=== PATIENT | female | born 1970 | race Caucasian/White ===

== ENCOUNTER 2016-11-17 13:47 | Emergency (ER) | payer MEDICARE, MEDICAID ==
[2016-11-17] MEDS ORDERED: HYDROcod/ACETAM 5/325 MG TABLET PO STA ×2 (15:21→15:51)
[2016-11-17] MEDS ORDERED: CEPHALEXIN 250 MG CAPSULE PO STA (15:22)
[2016-11-17] MEDS ORDERED: HYDROcod/ACETAM 5/325 MG TABLET ONE (15:24)
[2016-11-17] MEDS ORDERED: CIPROFLOXACIN 250 MG TABLET PO ONE (15:24)
[2016-11-17] MEDS ORDERED: CEPHALEXIN 250 MG CAPSULE PO ONE (15:25)
[2016-11-17] MEDS ORDERED: ONDANSETRON 4 MG/2 ML VIAL IM STA (15:51)
[2016-11-17] MEDS ORDERED: ceFAZolin 1 GM VIAL IM STA (15:51)
[2016-11-17] MEDS ORDERED: ONDANSETRON 4 MG/2 ML VIAL ONE (16:03)
[2016-11-17] MEDS ORDERED: WATER FOR INJECTION,STERILE 10 ML ONE (16:03)
[2016-11-17] MEDS ORDERED: ceFAZolin 1 GM VIAL ONE (16:03)
[2016-11-17] MEDS ORDERED: traMADol 50 MG TABLET PO STA (16:57)
[2016-11-17] MEDS ORDERED: traMADol 50 MG TABLET PO ONE (16:59)
== END 2016-11-17 17:35 | disposition home or self-care (01) ==
DX: M79.641 Pain in right hand (principal); M79.89 Other specified soft tissue disorders; S60.812A Abrasion of left wrist, initial encounter; X58.XXXA Exposure to other specified factors, initial encounter; L03.114 Cellulitis of left upper limb; R03.0 Elevated blood-pressure reading, without diagnosis of hypertension
CPT/HCPCS: 29125; 73130; 96372; 99283; A9270

== ENCOUNTER 2016-11-24 18:23 | Emergency (ER) | payer MEDICARE, MEDICAID ==
[2016-11-24] MEDS ORDERED: SODIUM CHLORIDE 0.9% 1,000 ML IV ONE ×2 (19:24→19:31)
[2016-11-24] MEDS ORDERED: ONDANSETRON ODT 4 MG TABLET TL STA (19:24)
[2016-11-24] MEDS ORDERED: IPRATROPIUM/ALBUTEROL 3 ML NEB INH STA (19:24)
[2016-11-24] MEDS ORDERED: HYDROmorphone 1 MG/ML SYRINGE IVP STA (19:24)
[2016-11-24] MEDS ORDERED: methylPREDNISolone SUCCINATE 125 MG/2 ML VIAL IVP STA ×2 (19:26→20:30)
[2016-11-24] MEDS ORDERED: IPRATROPIUM/ALBUTEROL 3 ML NEB INH ONE (19:28)
[2016-11-24] MEDS ORDERED: HYDROmorphone 1 MG/ML SYRINGE ONE (19:30)
[2016-11-24] MEDS ORDERED: methylPREDNISolone SUCCINATE 125 MG/2 ML VIAL IVP ONE (19:31)
[2016-11-24] MEDS ORDERED: ONDANSETRON 4 MG/2 ML VIAL ONE (19:31)
[2016-11-24] MEDS ORDERED: HYDROmorphone 1 MG/ML SYRINGE IM STA (20:29)
[2016-11-24] MEDS ORDERED: METOCLOPRAMIDE 10 MG/2 ML VIAL IVP STA (20:29)
[2016-11-24] MEDS ORDERED: ONDANSETRON 4 MG/2 ML VIAL IM STA (20:30)
[2016-11-24] MEDS ORDERED: METOCLOPRAMIDE 10 MG/2 ML VIAL IVP ONE (20:35)
[2016-11-24] MEDS ORDERED: IOPAMIDOL-300 100 ML VIAL IVP ONE (21:24)
[2016-11-24] MEDS ORDERED: ALBUTEROL 8 GM INHALER INH STA (22:22)
[2016-11-24] MEDS ORDERED: ALBUTEROL 8 GM INHALER INH ONE (22:27)
== END 2016-11-24 22:48 | disposition home or self-care (01) ==
DX: J06.9 Acute upper respiratory infection, unspecified (principal); B97.89 Other viral agents as the cause of diseases classified elsewhere; R06.2 Wheezing; R10.12 Left upper quadrant pain; R11.2 Nausea with vomiting, unspecified; Z90.49 Acquired absence of other specified parts of digestive tract; F17.200 Nicotine dependence, unspecified, uncomplicated
CPT/HCPCS: 36415; 71020; 74177; 80053; 81003; 81025; 83690; 85025; 87275; 87276; 94640; 94664; 96372; 96374; 96375; 99283; 99284; A9270; J1170; J7620; Q9967

== ENCOUNTER 2016-12-04 | Emergency (ER) | payer MEDICARE, MEDICAID | END 2016-12-04 03:55 | disposition home or self-care (01) ==

== ENCOUNTER 2016-12-04 | Outpatient (CLI) | payer MEDICARE, MEDICAID | END 2016-12-04 01:15 | disposition critical access hospital (66) | DX: R40.20 Unspecified coma (principal) | CPT/HCPCS: A0425; A0427 ==

== ENCOUNTER 2017-03-12 20:03 | Outpatient (CLI) | payer MEDICARE, MEDICAID | END 2017-03-12 20:04 | disposition home or self-care (01) | DX: R10.2 Pelvic and perineal pain (principal) ==

== ENCOUNTER 2017-03-13 14:19 | Outpatient (CLI) | payer MEDICAID, MEDICARE | END 2017-03-13 14:20 | disposition home or self-care (01) | DX: Z01.812 Encounter for preprocedural laboratory examination (principal); M19.132 Post-traumatic osteoarthritis, left wrist ==

== ENCOUNTER 2017-03-17 12:36 | Observation (INO) | payer MEDICARE, MEDICAID ==
[2017-03-17] MEDS ORDERED: ceFAZolin 2 GM/50 ML 50 ML IV ONE (12:44)
[2017-03-17 13:11] LABS: HCG UR QUAL NEGATIVE
[2017-03-17] MEDS ORDERED: LACTATED RINGERS 1,000 ML IV ONE ×2 (15:10→17:32)
[2017-03-17] MEDS ORDERED: BUPIVACAINE 0.25% PF 30 ML VIAL SUBQ ONE ×2 (16:27)
[2017-03-17] MEDS ORDERED: DEXAMETHASONE 4 MG/ML VIAL IVP ONE (16:40)
[2017-03-17] MEDS ORDERED: fentaNYL 100 MCG/2 ML VIAL IVP ONE (16:40)
[2017-03-17] MEDS ORDERED: ONDANSETRON 4 MG/2 ML VIAL IVP ONE (16:40)
[2017-03-17] MEDS ORDERED: MIDAZOLAM 2 MG/2 ML VIAL IVP ONE (16:40)
[2017-03-17] MEDS ORDERED: ROPIVACAINE 0.5% PF 20 ML AMPULE EP ONE (16:40)
[2017-03-17] MEDS ORDERED: PROPOFOL 200 MG/20 ML VIAL IVP ONE (16:40)
[2017-03-17] MEDS ORDERED: EPINEPHrine 1 MG/ML VIAL IM ONE (16:40)
--- NOTE | 2017-03-17 18:15 | XRAY Preliminary Report ---
Exam: XR Wrist 2 View LT Impression: Status post radiocarpal dorsal fusion. [facility] SITE ID: [id number]
--- NOTE | 2017-03-17 18:18 | XRAY Report ---
EXAM: LEFT WRIST RADIOGRAPHY EXAM DATE: 03/17/2017 03:24 PM. CLINICAL HISTORY: LEFT WRIST FUSION. COMPARISON: None. TECHNIQUE: 4 views. FINDINGS: Fluoroscopic assistance provided for 11 seconds. 4 spot films of the left wrist obtained demonstratin g a dorsal fusion plate bridging the radius, carpus to third metacarpal. Hardware appears firmly anch ored and intact. Advanced degenerative changes involving the carpus noted. Impression: Status post radiocarpal dorsal fusion. [facility] Referring Provider Line: [phone] SITE ID: [id number]
[2017-03-17] MEDS ORDERED: ACETAMINOPHEN 325 MG TABLET PO PRN (18:20)
[2017-03-17] MEDS ORDERED: diphenhydrAMINE 25 MG CAPSULE PO PRN (18:20)
[2017-03-17] MEDS ORDERED: SODIUM CHLORIDE FLUSH 0.9% 10 ML SYRINGE IVP PRN (18:20)
[2017-03-17] MEDS ORDERED: ACETAMINOPHEN 1,000 MG/100 ML 100 ML IV PRN (18:20)
[2017-03-17] MEDS ORDERED: PROCHLORPERAZINE 10 MG/2 ML VIAL IVP PRN (18:20)
[2017-03-17] MEDS ORDERED: ONDANSETRON 4 MG/2 ML VIAL IVP PRN (18:20)
[2017-03-17] MEDS ORDERED: hydrOXYzine PAMOATE 25 MG CAPSULE PO PRN (18:26)
--- NOTE | 2017-03-17 18:43 | OPERATIVE REPORT ---
Surgery Post-Op - General Procedure Date: 03/17/17 Pre-Op Diagnosis: 1. Posttraumatic arthritis Left Wrist. 2. Acquired limb deformity Left Wrist. Operative Procedure: Left Wrist fusion with allograft bone grafting. Post-Op Diagnosis: Same. - Procedure Note Anesthesia Technique: Primary Surgeon: Ronn Santos MD Pathology: Same. Estimated Blood Loss (in cc): 0 Drain/Tube Type: positive: Other (None.) Complications: None. - Other Other Information/Narrative: 1. Fluids: 1000 LR. 2. Tourniquet: 90 minutes to Left arm at 250 mm Hg without complication. 3. Condition: Stable. 4. Disposition: Patient to be admitted overnight for Observation secondary to concerns about the vascular supply to her left arm as a result of her Raynaud's.
[2017-03-17] MEDS: clonazePAM 0.5 MG TABLET PO SCH (20:23)
[2017-03-17] MEDS: traMADol 50 MG TABLET PO PRN (20:23)
[2017-03-17] MEDS: ALPRAZolam 0.25 MG TABLET PO PRN (20:23)
[2017-03-17] MEDS: busPIRone 5 MG TABLET PO SCH (20:24)
[2017-03-17] MEDS: GABAPENTIN 300 MG CAPSULE PO SCH (21:14)
--- NOTE | 2017-03-17 22:52 | XRAY Preliminary Report ---
Exam: XR Chest 1 View IMPRESSION: 1. Right IJ line tip is not well seen. The tip extends at least to the right atrium. 2. Normal lung v olumes and heart size. 3. No evidence of focal infiltrate. 4. No pneumothorax. [facility] SITE ID: [id number]
--- NOTE | 2017-03-17 22:54 | XRAY Report ---
EXAM: CHEST RADIOGRAPHY EXAM DATE: 03/17/2017 06:36 PM. CLINICAL HISTORY: Post op central line. COMPARISON: 11/24/2016. TECHNIQUE: 1 view. FINDINGS: Lungs/Pleura: No focal opacities evident. No pleural effusion. No pneumothorax. Mediastinum: Within exam limitations, cardiomediastinal contour is normal. Other: Right IJ line tip is not well seen. It extends at least to the right atrium. IMPRESSION: 1. Right IJ line tip is not well seen. The tip extends at least to the right atrium. 2. Normal lung v olumes and heart size. 3. No evidence of focal infiltrate. 4. No pneumothorax. [facility] Referring Provider Line: [phone] SITE ID: [id number]
[2017-03-17] MEDS: D5.45NS W/20 MEQ KCL 1,000 ML IV SCH (23:25)
[2017-03-17] MEDS: ceFAZolin 2 GM/50 ML 50 ML IV SCH (23:27)
[2017-03-17] MEDS: SODIUM CHLORIDE FLUSH 0.9% 10 ML SYRINGE IVP SCH (23:32)
[2017-03-17] MEDS: HYDROmorphone 1 MG/ML SYRINGE IVP PRN (23:57)
[2017-03-18] MEDS: HYDROmorphone 1 MG/ML SYRINGE IVP PRN ×3 (02:08→08:22)
[2017-03-18] MEDS: ALPRAZolam 0.25 MG TABLET PO PRN (03:44)
[2017-03-18] MEDS: SODIUM CHLORIDE FLUSH 0.9% 10 ML SYRINGE IVP SCH (05:26)
[2017-03-18] MEDS: GABAPENTIN 300 MG CAPSULE PO SCH (05:33)
[2017-03-18] MEDS: ceFAZolin 2 GM/50 ML 50 ML IV SCH (05:33)
[2017-03-18] MEDS ORDERED: ASPIRIN 325 MG TABLET PO SCH (08:00)
[2017-03-18] MEDS: busPIRone 5 MG TABLET PO SCH (08:21)
[2017-03-18] MEDS: traMADol 50 MG TABLET PO PRN (08:22)
[2017-03-18] MEDS: clonazePAM 0.5 MG TABLET PO SCH (08:22)
--- NOTE | 2017-03-18 08:54 | Discharge Plan ---
Discharge Plan Disposition: Home, Self Care Condition: Fair Prescriptions: Oxycodone HCl/Acetaminophen [Oxycodone-Acetaminophen 5-325] 1 each PO Q4HR #14 tablet traMADol [Ultram] 50 mg PO Q4HR PRN #60 tablet PRN Reason: Pain Diet: Regular Activity Restrictions: No lifting > 1 lb w/ Left Shower Restrictions: Yes (Keep dressing clean and dry.) Driving Restrictions: Yes Weight Bearing: Partial Weight No Smoking: If you smoke, Please STOP! Call for help. Follow-up with: Judith Celaya FNP [Primary Care Provider] - Ronn Santos MD [Provider Admit Priv/Credential] -
[2017-03-18 08:57] VITALS: BP 112/67
[2017-03-18] MEDS ORDERED: DULoxetine 30 MG CAPSULE PO SCH (09:00)
[2017-03-18] MEDS: D5.45NS W/20 MEQ KCL 1,000 ML IV SCH (11:05)
--- NOTE | 2017-03-18 13:09 | XRAY Report ---
[facility]: 03/17/2017 Fluoroscopy time only, no images submitted for interpretation. Fluoroscopy time 0 minutes, 11 seconds. [facility]
--- NOTE | 2017-04-10 02:03 | OPERATIVE REPORT ---
DATE OF SURGERY: 03/17/2017 00:00:00 PREOPERATIVE DIAGNOSES 1. Posttraumatic arthritis, left wrist. 2. Acquired limb deformity, left wrist. POSTOPERATIVE DIAGNOSES 1. Posttraumatic arthritis, left wrist. 2. Acquired limb deformity, left wrist. PROCEDURE: Left wrist fusion with allograft bone grafting. ANESTHESIA TECHNIQUE: General endotracheal. SURGEON: Ronn Santos MD. PATHOLOGY: None. ESTIMATED BLOOD LOSS: 0. DRAINS None. COMPLICATIONS: None. FLUIDS: 1000 mL of lactated Ringer's. TOURNIQUET: 90 minutes to the left arm at 250 mmHg without complication. CONDITION AT END OF PROCEDURE: Stable. DISPOSITION: The patient to be admitted overnight for observation secondary to concerns about vascula r supply to her left arm as a result of her Raynaud phenomenon. INDICATIONS: This is a 47-year-old female with longstanding history of injury to her left wrist, whic h has failed previous tri-corner fusion and multiple surgical procedures. She has been bothered by ad vancing posttraumatic osteoarthritis to the wrist with unremitting pain. This is in the setting of Ra ynaud phenomenon, making her a higher risk patient. We have extensively discussed options. She wishes to proceed with left wrist fusion to mitigate her p ain. PROCEDURE IN DETAIL: After consent and identification, the patient was brought to the operating room and placed in the supine position on the operating table. After induction of a general endotracheal a nesthesia and appropriate monitoring, the left upper extremity was outstretched on the hand table. Le ft upper extremity was then prepped and draped free in the usual sterile fashion for forearm surgery with a padded tourniquet to the proximal arm. After an appropriate timeout had been conducted, the left upper extremity was exsanguinated with an E smarch bandage. The tourniquet was inflated to 250 mmHg. With the forearm in a pronated position, we mapped out a dorsal incision paralleling the middle finger metacarpal extending across the carpus to the distal radius in line with Gerri's tubercle and then proximal end of the forearm. Skin and subcu taneous tissues were divided down to the extensor tendon sheath. We incised the extensor tendon sheat h and tendons radial to the middle finger communis. We carefully retracted the tendons. We dissected the retinaculum over Gerri's tubercle and reflected the tendons. We rongeured Gerri's tubercle to m darshan a bed for the plate. We then used a curet, rongeur and scalpel to excise soft tissue from the car pus. We denuded the cartilage in the mid carpus and distal carpus at the carpometacarpal joint over t he middle finger metacarpal. We then selected the Acumed wrist fusion plate for the middle finger met acarpal and placed the plate on the hand. We used standard technique to place locking screws (2.7 mm in the distal plate and 3.5 mm in the proximal plate). We then morselized 10 mL vial of allograft bon e graft, mixed it with some of the patient's blood obtained from suction, and impacted the morcellize d bone graft around the carpus. We then carefully cleansed the wound with sterile saline, protecting the allograft from rinsing away the blood products. We then closed by reapproximating the extensor re tinaculum with interrupted 2-0 Vicryl sutures. Interrupted 2-0 Vicryl subcuticular sutures were then applied followed by a running 3-0 Monocryl subdermal suture. Steri-Strips and Mastisol were then applied. The wrist was dressed with a volar plaster of Nuris spli nt after placing Xeroform and 4 x 4's over the dorsal wrist. We wrapped with Webril, and Tj bandage was then effected over the wound. On completion of the procedure, the tourniquet was deflated without complication. Fluoroscopic imaging verified placement of the plate and screws. The patient was extub ated and transferred to the recovery room in good condition having tolerated the procedure well. JOB #: [id number] EXT JOB #:[id number]
== END 2017-03-18 10:00 | disposition home or self-care (01) ==
LOC: SDS 12:36 → MS 18:20
PROVIDERS: ADMIT Orthopaedic Surgery; ATTEND Orthopaedic Surgery
PROC: 0RGP04Z Fusion of Left Wrist Joint with Internal Fixation Device, Open Approach (ICD-10-PCS; principal; 2017-03-17 12:15)
DX: M19.132 Post-traumatic osteoarthritis, left wrist (principal); S63.022 Subluxation of radiocarpal joint of left wrist; M21.932 Unspecified acquired deformity of left forearm; I73.00 Raynaud's syndrome without gangrene; F41.9 Anxiety disorder, unspecified; F32.9 Major depressive disorder, single episode, unspecified; I10 Essential (primary) hypertension; B19.20 Unspecified viral hepatitis C without hepatic coma; Z22.322 Carrier or suspected carrier of Methicillin resistant Staphylococcus aureus; Z87.891 Personal history of nicotine dependence
CPT/HCPCS: 25800; 71010; 73100; 81025; A9270; C1713; G0378; J0131; J0171; J0690; J1170; J7120

== ENCOUNTER 2017-05-27 17:41 | Emergency (ER) | payer MEDICARE, MEDICAID ==
[2017-05-27 17:55] VITALS: BP 142/88
--- NOTE | 2017-05-27 18:16 | ED Physician Documentation ---
PD HPI LOWER EXT INJURY - Stated complaint Stated Complaint: L ANKLE PX - Chief complaint Chief Complaint: Ext Problem - History obtained from History obtained from: Patient - History of Present Illness PD HPI LOW EXT INJURY LOCATION: Left, Ankle Type of injury: Twist Where injury occurred: Street Timing - onset: How many hours ago (1) Timing - duration: Hours (1) Timing - details: Abrupt onset Pain level max: 7 Pain level now: 7 Improved by: Rest, Ice Worsened by: Moving, Palpating Associated symptoms: Swelling, Discolored (ecchymosis). No: Weakness, Numbness , Tingling Contributing factors: No: Anticoagulated Recently seen: No: Not recently seen Review of Systems : denies: Now EGA Skin: denies: Rash Musculoskeletal: denies: Neck pain, Back pain Neurologic: denies: Headache PD PAST MEDICAL HISTORY - Past Medical History Cardiovascular: Hypertension Respiratory: None GI: Hepatitis : None HEENT: None Psych: Anxiety, Other - Past Surgical History General: Gastric surgery Ortho: Other - Present Medications Home Medications: Ambulatory Orders Medication Instructions Recorded Confirmed Duloxetine HCl [Cymbalta] 60 mg PO DAILY 11/17/16 05/27/17 Alprazolam 0.5 mg PO Q6HR PRN 03/13/17 05/27/17 Gabapentin 300 mg PO TID 03/13/17 05/27/17 Naltrexone HCl 50 mg PO DAILY 03/13/17 05/27/17 hydrOXYzine PAMOATE [Vistaril] 25 mg PO ONCE PRN 03/13/17 05/27/17 Acetaminophen [Tylenol] 650 - 975 mg PO Q4HR PRN #0 tablet 03/18/17 05/27/17 buPROPion [Wellbutrin Xl] 150 mg PO DAILY 05/27/17 05/27/17 oxyCODONE [Roxicodone] 5 - 10 mg PO Q6H PRN #20 tablet 05/27/17 - Allergies Allergies/Adverse Reactions: Allergies Allergy/AdvReac Type Severity Reaction Status Date / Time ketorolac tromethamine * Allergy Edema Verified 11/17/16 13:53 [From Toradol] - Social History Does the pt smoke?: Yes Smoking Status: Current every day smoker PD ED PE NORMAL - Vitals Vital signs reviewed: Yes - General General: Alert and oriented X 3, No acute distress, Well developed/nourished - HEENT HEENT: Atraumatic, PERRL, Moist mucous membranes - Neck Neck: Supple, no meningeal sign, No bony TTP - Cardiac Cardiac: RRR - Respiratory Respiratory: No respiratory distress, Clear bilaterally - Back Back: No spinal TTP - Derm Derm: Warm and dry - Extremities Extremities: Other (L ankle - TTP lateral malleolus, NVI. STS. ecchymosis. Normal foot exam. ) - Neuro Neuro: Alert and oriented X 3 - Psych Psych: Normal mood, Normal affect Results - Vitals Vitals: Vital Signs - 24 hr 05/27/17 17:52 Temperature 36.4 C L Heart Rate 79 Respiratory 14 Rate Blood Pressure 142/88 H O2 Saturation 100 Oxygen O2 Source Room air - Rads (name of study) L ankle xray Radiology: Prelim report reviewed, EMP read contemporaneously, See rad report ( Large ankle effusion. No acute bony abnormality.) PD MEDICAL DECISION MAKING - ED course Complexity details: reviewed results, re-evaluated patient, considered differential, d/w patient ED course: Patient is a 47-year-old female who presents to the emergency department with a left ankle sprain. No acute findings on x-ray other than an ankle effusion and soft tissue swelling. She was placed in a splint and crutches. Will prescribe pain medication for home. She had been on naltrexone prior for alcoholism, but stopped this several days ago. Patient counseled regarding signs and symptoms for which I believe and urgent re-evaluation would be necessary. Patient with good understanding of and agreement to plan and is comfortable going home at this time This document was made in part using voice recognition software. While efforts are made to proofread this document, sound alike and grammatical errors may occur. Counseled regarding missed fractures secondary to acute swelling and may need repeat xrays if not improving. Departure - Departure Disposition: 01 Home, Self Care Clinical Impression: Left ankle sprain Qualifiers: Encounter type: initial encounter Involved ligament of ankle: unspecified ligament Qualified Code(s): S93.402A - Sprain of unspecified ligament of left ankle, initial encounter Condition: Good Instructions: ED Sprain Ankle W X Ray Follow-Up: your,doctor in 1 week [Other] Prescriptions: oxyCODONE [Roxicodone] 5 - 10 mg PO Q6H PRN #20 tablet PRN Reason: ankle pain Comments: Return if you worsen. Follow up with your doctor in 1 week for repeat evaluation. Do not drink alcohol or drive while on narcotic pain medicine. Note that many narcotic pain relievers also contain tylenol/acetaminophen. Please ensure that your total dose of acetaminophen from all sources does not exceed 3 grams (3000mg) per day. You may constipated on this medication, take a stool softener such as "Colace" twice a day while you are on it. Also recommend a fydc-vhq-xkqaigd laxative such as senna or MiraLAX any day that you do not have a bowel movement. If you received narcotic pain medication in the emergency department, do not drive or operate machinery for the next 24 hours. Discharge Date/Time: 05/27/17 19:15
--- NOTE | 2017-05-27 18:38 | XRAY Preliminary Report ---
Exam: XR Ankle 3 View LT IMPRESSION: 1. Large ankle effusion. 2. No acute bony abnormality. [facility] SITE ID: [id number]
--- NOTE | 2017-05-27 18:43 | XRAY Report ---
EXAM: LEFT ANKLE RADIOGRAPHY EXAM DATE: 05/27/2017 05:54 PM. CLINICAL HISTORY: Lateral ankle pain after an injury today. COMPARISON: None. TECHNIQUE: 3 views. FINDINGS: Bones: Normal. No fractures or bone lesions. 2.5 mm well corticated calcification consistent with acc essory ossicle or dystrophic calcification in the peroneus brevis insertion, lateral to the cuboid. N o associated edema. Joints: Large ankle effusion. Ankle joint of normal caliber without bony reactive changes. Bones in a natomic alignment. Soft Tissues: Marked edema over the lateral malleolus. IMPRESSION: 1. Large ankle effusion. 2. No acute bony abnormality. [facility] Referring Provider Line: [phone] SITE ID: [id number]
[2017-05-27] MEDS ORDERED: oxyCODONE 5 MG TABLET PO STA (19:06)
[2017-05-27] MEDS ORDERED: oxyCODONE 5 MG TABLET ONE (19:08)
== END 2017-05-27 19:15 | disposition home or self-care (01) ==
LOC: ED 17:41
DX: S93.402A Sprain of unspecified ligament of left ankle, initial encounter (principal); X50.0XXA Overexertion from strenuous movement or load, initial encounter; Y92.488 Other paved roadways as the place of occurrence of the external cause; I10 Essential (primary) hypertension; K75.9 Inflammatory liver disease, unspecified; Z98.84 Bariatric surgery status; F17.200 Nicotine dependence, unspecified, uncomplicated
CPT/HCPCS: 73610; 99283; A9270

== ENCOUNTER 2017-08-05 00:07 | Emergency (ER) | payer MEDICARE, MEDICAID ==
--- NOTE | 2017-08-05 00:49 | ED Physician Documentation ---
PD HPI NVD - Stated complaint Stated Complaint: NAUSEA - Chief complaint Chief Complaint: Abd Pain - History obtained from History obtained from: Patient - History of Present Illness Timing - onset: Today Timing - duration: Hours Timing - details: Gradual onset, Still present Associated symptoms: Abdominal pain, Loss of appetite Contributing factors: Alcohol use Improved by: Laying still Worsened by: Position, Palpation Similar symptoms before: Has not had sx before Recently seen: Not recently seen - Additonal information Additional information: 47-year-old female with a history of alcohol and narcotic abuse is on naltrexone and she is undergoing a breakup with her girlfriend and recently started school today. She did take some alcohol today which she does not normally do and she is now found herself to be nauseated and with epigastric pain. She is a difficult IV start and would prefer not to have to have blood work or IV. Review of Systems Constitutional: reports: Fatigue. denies: Fever, Chills, Myalgias Eyes: denies: Decreased vision Ears: denies: Ear pain Nose: denies: Rhinorrhea / runny nose, Congestion Throat: denies: Sore throat Cardiac: denies: Chest pain / pressure, Palpitations Respiratory: reports: Cough. denies: Dyspnea GI: reports: Abdominal Pain, Nausea, Vomiting. denies: Constipation, Diarrhea : denies: Dysuria, Frequency Skin: denies: Rash Musculoskeletal: denies: Neck pain, Back pain, Extremity pain Neurologic: denies: Generalized weakness, Focal weakness PD PAST MEDICAL HISTORY - Past Medical History Cardiovascular: Hypertension Respiratory: None GI: Hepatitis : None HEENT: None Psych: Anxiety, Other - Past Surgical History General: Gastric surgery Ortho: Other - Present Medications Home Medications: Ambulatory Orders Medication Instructions Recorded Confirmed Duloxetine HCl [Cymbalta] 60 mg PO DAILY 11/17/16 05/27/17 Alprazolam 0.5 mg PO Q6HR PRN 03/13/17 05/27/17 Gabapentin 300 mg PO TID 03/13/17 05/27/17 Naltrexone HCl 50 mg PO DAILY 03/13/17 05/27/17 hydrOXYzine PAMOATE [Vistaril] 25 mg PO ONCE PRN 03/13/17 05/27/17 Acetaminophen [Tylenol] 650 - 975 mg PO Q4HR PRN #0 tablet 03/18/17 05/27/17 buPROPion [Wellbutrin Xl] 150 mg PO DAILY 05/27/17 05/27/17 oxyCODONE [Roxicodone] 5 - 10 mg PO Q6H PRN #20 tablet 05/27/17 - Allergies Allergies/Adverse Reactions: Allergies Allergy/AdvReac Type Severity Reaction Status Date / Time ketorolac tromethamine * Allergy Edema Verified 08/05/17 00:21 [From Toradol] - Social History Does the pt smoke?: Yes Smoking Status: Current every day smoker Does the pt drink ETOH?: No Does the pt have substance abuse?: No - Immunizations Immunizations are current?: Yes PD ED PE NORMAL - Vitals Vital signs reviewed: Yes (tachy ) - General General: Well developed/nourished, Other (The patient is withdrawn and appears to be enjoying the attention given to her by her girlfriend that is trying to break up with her.) - HEENT HEENT: Atraumatic, PERRL - Neck Neck: Supple, no meningeal sign, No bony TTP - Cardiac Cardiac: RRR, No murmur - Respiratory Respiratory: No respiratory distress, Clear bilaterally - Abdomen Abdomen: Soft, Other (epigastric tenderness) - Back Back: No CVA TTP, No spinal TTP - Derm Derm: Normal color, Warm and dry, No rash - Extremities Extremities: No deformity, No edema - Neuro Neuro: No motor deficit, No sensory deficit Results - Vitals Vitals: Vital Signs - 24 hr 08/05/17 00:19 Temperature 35.6 C L Heart Rate 101 H Respiratory 18 Rate Blood Pressure 107/75 O2 Saturation 100 Oxygen O2 Source Room air PD MEDICAL DECISION MAKING - ED course Complexity details: reviewed results, re-evaluated patient, considered differential, d/w patient, d/w family Departure - Departure Disposition: 01 Home, Self Care Clinical Impression: Stress reaction Gastritis Qualifiers: Gastritis type: alcoholic Chronicity: acute Gastritis bleeding: without bleeding Qualified Code(s): K29.20 - Alcoholic gastritis without bleeding Condition: Stable Instructions: ED PUD Vs Gastritis, ED Stress React Follow-Up: [facility] [Provider Group]
[2017-08-05] MEDS ORDERED: PROMETHAZINE 25 MG/1 ML VIAL IM STA (00:57)
[2017-08-05] MEDS ORDERED: diphenhydrAMINE INJ 50 MG/ML VIAL IM STA (00:57)
[2017-08-05] MEDS ORDERED: LIDOCAINE VISCOUS 2% 15 ML UDC MM STA (00:57)
[2017-08-05] MEDS ORDERED: MAG HYDROX/AL HYDROX/SIMETH 30 ML UDC PO STA (00:58)
[2017-08-05] MEDS ORDERED: MAG HYDROX/AL HYDROX/SIMETH 30 ML UDC ONE (01:13)
[2017-08-05] MEDS ORDERED: PROMETHAZINE 25 MG/1 ML VIAL ONE (01:13)
[2017-08-05] MEDS ORDERED: LIDOCAINE VISCOUS 2% 15 ML UDC MM ONE (01:13)
[2017-08-05] MEDS ORDERED: diphenhydrAMINE INJ 50 MG/ML VIAL ONE (01:13)
[2017-08-05 02:00] VITALS: BP 108/67
== END 2017-08-05 02:00 | disposition home or self-care (01) ==
LOC: ED 00:07
DX: F43.9 Reaction to severe stress, unspecified (principal); K29.20 Alcoholic gastritis without bleeding; I10 Essential (primary) hypertension; K75.9 Inflammatory liver disease, unspecified
CPT/HCPCS: 96372; 99283; A9270

== ENCOUNTER 2017-10-01 15:40 | Emergency (ER) | payer MEDICARE, MEDICAID ==
[2017-10-01 15:48] VITALS: BP 134/94
== END 2017-10-01 18:24 | disposition left against medical advice (07) ==
LOC: ED 15:40
DX: Z53.21 Procedure and treatment not carried out due to patient leaving prior to being seen by health care provider (principal)

== ENCOUNTER 2017-10-15 05:55 | Emergency (ER) | payer MEDICARE, MEDICAID ==
[2017-10-15 06:08] VITALS: BP 140/76
[2017-10-15] MEDS ORDERED: LIDOCAINE 1% 2 ML VIAL ONE (06:09)
--- NOTE | 2017-10-15 06:13 | ED Physician Documentation ---
PD HPI UPPER EXT INJURY - Stated complaint Stated Complaint: RT HAND LACERATION - Chief complaint Chief Complaint: Laceration - History obtained from History obtained from: Patient - History of Present Illness Location: Right, Finger Type of injury: Laceration Where injury occurred: Home Timing - onset: How many minutes ago (30) Timing - details: Abrupt onset Worsened by: Moving, Palpating Associated symptoms: Discolored Similar symptoms before: Has not had sx before Recently seen: Not recently seen - Additonal information Additional information: Patient is a 47 year old female with multiple co-morbidities who is presenting to the emergency department for a finger laceration. Patient states that she was reaching for something under the sink when she cut her hand on some glass. Patient denies any other trauma and is up to date on her vaccines. Review of Systems Constitutional: reports: Reviewed and negative Eyes: reports: Reviewed and negative Ears: reports: Reviewed and negative Nose: reports: Reviewed and negative Cardiac: reports: Reviewed and negative Respiratory: reports: Reviewed and negative GI: reports: Reviewed and negative : reports: Reviewed and negative Skin: reports: Laceration (s) Musculoskeletal: reports: Extremity pain Neurologic: denies: Generalized weakness, Focal weakness, Numbness Endocrine: reports: Reviewed and negative PD PAST MEDICAL HISTORY - Past Medical History Past Medical History: Yes Cardiovascular: Hypertension Respiratory: None GI: Hepatitis : None HEENT: None Psych: Anxiety, Other - Past Surgical History General: Gastric surgery Ortho: Other - Present Medications Home Medications: Ambulatory Orders Medication Instructions Recorded Confirmed Duloxetine HCl [Cymbalta] 60 mg PO DAILY 11/17/16 10/01/17 Gabapentin 100 mg PO TID 03/13/17 10/01/17 lamoTRIgine [Lamictal] 150 mg DAILY 10/01/17 10/01/17 - Allergies Allergies/Adverse Reactions: Allergies Allergy/AdvReac Type Severity Reaction Status Date / Time ketorolac tromethamine * Allergy Edema Verified 10/15/17 06:09 [From Toradol] morphine Allergy Itching Verified 10/15/17 06:09 tramadol AdvReac Itching Verified 10/15/17 06:09 - Social History Does the pt smoke?: Yes Smoking Status: Current every day smoker Does the pt drink ETOH?: No Does the pt have substance abuse?: No - Immunizations Immunizations are current?: Yes - POLST Patient has POLST: No PD ED PE NORMAL - Vitals Vital signs reviewed: Yes - General General: Alert and oriented X 3, No acute distress - HEENT HEENT: Atraumatic, PERRL - Neck Neck: Supple, no meningeal sign - Cardiac Cardiac: RRR, No murmur - Respiratory Respiratory: No respiratory distress - Abdomen Abdomen: Non distended - Neuro Neuro: Alert and oriented X 3, No motor deficit, No sensory deficit, Normal speech Eye Opening: Spontaneous Motor: Obeys Commands Verbal: Oriented GCS Score: 15 - Psych Psych: Normal mood PD ED PE EXPANDED - Extremities Extremities: Right finger(s) (skin avulsion on lateral portion of right 5th digit, no tendon or ligament involvement. ), Motor intact, Sensory intact, Vascular intact, Tendon intact Results - Vitals Vitals: Vital Signs - 24 hr 10/15/17 06:00 Temperature 36.4 C L Heart Rate 96 Respiratory 18 Rate Blood Pressure 140/76 H O2 Saturation 100 Oxygen O2 Source Room air Procedures - Regional nerve block Nerve block site: Digital - note digit(s) (right 5th digit) Right / left: Right Nerve block anesthesia: Lidocaine 1% Nerve block aftercare: Excellent anesthesia, Patient tolerated well, No complications PD MEDICAL DECISION MAKING - ED course Complexity details: reviewed old records, reviewed results, re-evaluated patient , considered differential, d/w patient ED course: Patient was seen and examined at bedside. A digital block was performed and patient's wound was cleaned. patient was up to date with her tetanus. Patient' s wound was an avulsion and could not be repaired with sutures or tape. Patient 's wound was dressed. patient required no further work up at this time and was stable for discharge with outpatient follow up. Departure - Departure Disposition: 01 Home, Self Care Clinical Impression: Avulsion of skin of finger without complication Condition: Good Instructions: ED Laceration All Follow-Up: Carolina Wilcox ARNP [Primary Care Provider] - Within 3 Days Comments: Your symptoms today are being caused by an avulsion of the skin on your finger. Due to the nature of the laceration it will not be able to be sewn at this time. A dressing will be placed over the wound. You should keep it on for the first 24 hours. After that you should keep it clean and dry. You should keep it covered if you are going outside, and you can let it dry out when you are at home. You should monitor for signs of infection and follow up with your pmd if you notice any of those signs. You may return to the emergency department at any time for new, worsening or uncontrollable symptoms.
== END 2017-10-15 06:25 | disposition home or self-care (01) ==
LOC: ED 05:55
DX: S61.206A Unspecified open wound of right little finger without damage to nail, initial encounter (principal); W25.XXXA Contact with sharp glass, initial encounter; Y92.009 Unspecified place in unspecified non-institutional (private) residence as the place of occurrence of the external cause; I10 Essential (primary) hypertension; F17.200 Nicotine dependence, unspecified, uncomplicated
CPT/HCPCS: 64450; 99283

== ENCOUNTER 2018-01-09 08:00 | Outpatient (CLI) | payer MEDICARE, MEDICAID ==
[2018-01-10 13:51] LABS: HEPATITIS C ANTIBODY REACTIVE (NON-REACTIVE)
[2018-01-14 17:56] LABS: HCV RNA QNT 4.61 Log IU/mL (NOT DETECTED); HCV RNA QUANT RT PCR 40900 IU/mL (NOT DETECTED)
== END 2018-01-09 08:01 | disposition home or self-care (01) ==
LOC: LAB.N 08:00
PROVIDERS: ATTEND Physician Assistant Medical
DX: Z87.19 Personal history of other diseases of the digestive system (principal)
CPT/HCPCS: 36415; 86803

== ENCOUNTER 2019-02-26 13:03 | Emergency (ER) | payer MEDICARE, MEDICAID ==
[2019-02-26 13:08] VITALS: BP 150/106
[2019-02-26] MEDS ORDERED: KETOROLAC 60 MG/2 ML VIAL IM STA (15:15)
[2019-02-26] MEDS ORDERED: ONDANSETRON ODT 4 MG TABLET TL STA (15:15)
[2019-02-26 15:53] LABS: BILIRUBIN,URINE NEGATIVE (NEGATIVE); GLUCOSE, URINE (UA) NEGATIVE (NEGATIVE); KETONES,URINE (UA) NEGATIVE (NEGATIVE); LEUKOCYTE ESTERASE, URINE NEGATIVE (NEGATIVE); NITRITE,URINE NEGATIVE (NEGATIVE); OCCULT BLOOD,URINE NEGATIVE (NEGATIVE); PROTEIN,URINE NEGATIVE (NEGATIVE); UROBILINOGEN,URINE 0.2 (NORMAL) E.U./dL (NORMAL)
[2019-02-26 15:54] LABS: CLARITY,URINE CLEAR (CLEAR)
[2019-02-26 15:55] LABS: HCG UR QUAL NEGATIVE
--- NOTE | 2019-02-27 23:04 | ED Physician Documentation ---
History of Present Illness - Stated complaint Stated Complaint: ABD PX/CARRANZA - Chief complaint Chief Complaint: Abd Pain - History obtained from History obtained from: Patient - Additonal information Additional information: The patient is a 49-year-old female with prior history of drug addiction, currently in outpatient drug treatment program, who presents with a myriad of symptoms, including. Umbilical abdominal pain, headache, myalgias, and possible fever. She reports having a migraine for the past month, but it is been worse the past 2 days. It is mostly frontal in location. She reports associated photosensitivity. She had one episode of vomiting this morning, and complains of periumbilical abdominal discomfort today. She denies diarrhea or dysuria. 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 She was seen at a clinic in [facility] yesterday and was treated with Imitrex and antiemetic. She expresses dissatisfaction because the practitioners declined to perform an influenza test. The patient's partner was diagnosed with influenza 5 days ago, and was treated with Tamiflu. Review of Systems Constitutional: reports: Fever (Possibly but not certain.), Myalgias, Fatigue Eyes: reports: Photophobia Ears: denies: Tinnitus/ringing Nose: reports: Congestion Throat: denies: Sore throat Cardiac: denies: Chest pain / pressure Respiratory: reports: Cough GI: reports: Abdominal Pain. denies: Diarrhea : denies: Dysuria Skin: denies: Rash Musculoskeletal: denies: Extremity swelling Neurologic: reports: Headache. denies: Focal weakness, Numbness PD PAST MEDICAL HISTORY - Past Medical History Cardiovascular: Hypertension Respiratory: None GI: Hepatitis : None HEENT: None Psych: Anxiety, Other - Past Surgical History General: Gastric surgery Ortho: Other - Present Medications Home Medications: Ambulatory Orders Medication Instructions Recorded Confirmed Duloxetine HCl [Cymbalta] 60 mg PO DAILY 11/17/16 10/01/17 Gabapentin 100 mg PO TID 03/13/17 10/01/17 lamoTRIgine [Lamictal] 150 mg DAILY 10/01/17 10/01/17 - Allergies Allergies/Adverse Reactions: Allergies Allergy/AdvReac Type Severity Reaction Status Date / Time ketorolac tromethamine * Allergy Edema Verified 02/26/19 13:08 [From Toradol] morphine Allergy Itching Verified 02/26/19 13:08 tramadol AdvReac Itching Verified 02/26/19 13:08 - Social History Does the pt smoke?: Yes Smoking Status: Current every day smoker Does the pt drink ETOH?: No Does the pt have substance abuse?: Yes Substance Use and Type: Other (Patient reports history of opiate abuse, but denies current use.) - Immunizations Immunizations are current?: Yes - POLST Patient has POLST: No PD ED PE NORMAL - Vitals Vital signs reviewed: Yes (hypertensive) - General General: Alert and oriented X 3, Well developed/nourished, Other (Appears miserable, and is arguing with her partner when I entered the room.) - HEENT HEENT: Atraumatic, EOMI, Pharynx benign - Neck Neck: Supple, no meningeal sign, No adenopathy - Cardiac Cardiac: RRR, No murmur - Respiratory Respiratory: No respiratory distress, Clear bilaterally - Abdomen Abdomen: Soft, Non tender, Other (Midline surgical scar.) - Back Back: No CVA TTP - Derm Derm: No rash - Extremities Extremities: No edema, No calf tenderness / cord, Other (No visible IV access in the upper extremities.) - Neuro Neuro: Alert and oriented X 3, No motor deficit, No sensory deficit Results - Vitals Vitals: Oxygen O2 Source Room air - Labs Labs: Laboratory Tests 02/26/19 02/26/19 15:20 15:20 Urine Color YELLOW Urine Clarity CLEAR Urine pH 6.0 Ur Specific [place] <=1.005 <=1.005 Urine Protein NEGATIVE Urine Glucose (UA) NEGATIVE Urine Ketones NEGATIVE Urine Occult Blood NEGATIVE Urine Nitrite NEGATIVE Urine Bilirubin NEGATIVE Urine Urobilinogen 0.2 (NORMAL) Ur Leukocyte Esterase NEGATIVE Ur Microscopic Review NOT INDICATED Urine Culture Comments NOT INDICATED Urine HCG, Qual NEGATIVE PD MEDICAL DECISION MAKING - ED course Complexity details: d/w patient ED course: I discussed with the patient that I would be ordering an influenza swab, and agreed to treat with oral and IM medications rather than to attempt IV access. The patient's partner became disgusted with her when she requested pain medication, making it clear that she was in an opiate treatment program and should not be requesting pain medication. The partner then left the emergency department, making her views well known to the patient. Unknown to me, under triage protocol abdominal pain orders had been previously entered into the computer. When the nurse entered the room to attempt IV access, the patient expressed anger to him. She then left the emergency department, without giving me a chance to attempt to diffuse the situation. Departure - Departure Disposition: ED [place] Discharge Date/Time: 02/26/19 15:45
== END 2019-02-26 15:45 | disposition left against medical advice (07) ==
LOC: ED 13:03
DX: R10.33 Periumbilical pain (principal); I10 Essential (primary) hypertension; F17.200 Nicotine dependence, unspecified, uncomplicated
CPT/HCPCS: 80053; 81001; 81003; 81025; 83690; 85025; 87086; 99281; 99283

== ENCOUNTER 2019-07-15 09:34 | Outpatient (CLI) | payer MEDICARE, MEDICAID ==
--- NOTE | 2019-07-15 12:58 | Mammography Report ---
Reason: RT BREAST MASS Procedure Date: 07/15/2019 Accession Number: [id number] / [id number] Procedure: [facility] - Diagnostic Dig Bilat CPT Code: FULL RESULT: EXAM: Diagnostic Dig Bilat DATE: 07/15/2019 10:35 AM CLINICAL HISTORY: Right breast mass. TECHNIQUE: (B) - Bilateral CC and MLO views were obtained. Left laterally exaggerated CC view and right ML view are obtained. Focused right breast ultrasound is performed. COMPARISON: None PARENCHYMAL PATTERN: (A) - The breast(s) demonstrate(s) scattered fibroglandular densities. FINDINGS: There is a hyperdense spiculated mass in the upper outer right breast approximately 11 cm from the nipple which measures 2.5 x 3.2 cm, suspicious for malignancy. Ultrasound examination demonstrates this mass to be irregular and hypoechoic in the right upper outer quadrant, positioning amenable to ultrasound-guided biopsy. There are no suspicious masses, calcifications, or areas of distortion in the left breast. IMPRESSION: Highly suggestive for malignancy. BI-RADS category 5. RECOMMENDATION: (BIOPSY) - ultrasound-guided biopsy right breast. BI-RADS CATEGORY: (5) - Highly suggestive for malignancy. STANDARD QUALIFYING STATEMENTS: 1. This examination was not reviewed with the aid of Computer-Aided Detection (CAD). 2. A negative or benign imaging report should not preclude biopsy if clinically suspicious findings are present. 3. Dense breasts may obscure an underlying neoplasm. 4. This examination was reviewed with the aid of 3D breast imaging (tomosynthesis).
== END 2019-07-15 09:35 | disposition home or self-care (01) ==
LOC: DI 09:34
PROVIDERS: ATTEND Obstetrics & Gynecology
DX: N63.11 Unspecified lump in the right breast, upper outer quadrant (principal)
CPT/HCPCS: 76642; 77066; G0279; 77062

== ENCOUNTER 2019-07-16 13:43 | Outpatient (CLI) | payer MEDICARE, MEDICAID ==
[~2019-07-16 13:43] MED LIST: BUFFERED LIDOCAINE 10 ML SYRINGE ONE; BUPIVACAINE 0.5%-EPI 1:200000 PF 10 ML VIAL ONE
[2019-07-16] MEDS ORDERED: BUPIVACAINE 0.5%-EPI 1:200000 PF 10 ML VIAL SUBQ ONE (16:01)
[2019-07-16] MEDS ORDERED: BUFFERED LIDOCAINE 10 ML SYRINGE IU ONE (16:01)
--- NOTE | 2019-07-16 16:12 | Ultrasound Report ---
Reason: RT BREAST MASS Procedure Date: 07/16/2019 Accession Number: [id number] / [id number] Procedure: US - Biopsy Breast Core CPT Code: FULL RESULT: PROCEDURE: Ultrasound-guided needle biopsy right breast mass. CLINICAL DATA: Targeted mass measuring 3.3 x 2.1 x 2.1 cm with irregular margins in the 11 o'clock axis of the right breast. Informed consent was obtained. Using standard aseptic technique, both 1% buffered lidocaine and Sensorcaine were injected into the right breast for local anesthesia. A small dvein was made in the skin with a #11 blade. A 12-gauge BroadHop vacuum-assisted device was used to obtain 4 specimens. A specialized biopsy marker clip was placed into the biopsy cavity under ultrasound guidance. The patient was taken to separate mammography machine and a two-view digital mammography was performed to verify the clip placement and any complications. The mammography showed good clip position. The wound was dressed and ice applied. The patient was observed for approximately 15 minutes, then was discharged from diagnostic imaging Department in good condition following instructions on wound care and obtaining biopsy results. The patient is scheduled to receive the biopsy results from the referring physician. The tissue was sent for histologic analysis. IMPRESSION: Ultrasound-guided biopsy of the right breast. AN ADDENDUM WILL BE MADE TO THIS REPORT WHEN PATHOLOGY IS REVIEWED TO ESTABLISH CONCORDANCE.
== END 2019-07-16 13:44 | disposition home or self-care (01) ==
LOC: DI 13:43
PROVIDERS: ATTEND Obstetrics & Gynecology
DX: C50.411 Malignant neoplasm of upper-outer quadrant of right female breast (principal); Z17.0 Estrogen receptor positive status [ER+]
CPT/HCPCS: 19083

== ENCOUNTER 2019-09-09 15:58 | Emergency (ER) | payer MEDICARE, MEDICAID ==
[2019-09-09] MEDS ORDERED: diphenhydrAMINE INJ 50 MG/ML VIAL IVP STA (16:23)
[2019-09-09] MEDS ORDERED: HYDROmorphone 1 MG/ML CARPUJECT IVP STA ×3 (16:23→18:32)
[2019-09-09] MEDS ORDERED: SODIUM CHLORIDE 0.9% 1,000 ML IV ONE (16:23)
[2019-09-09] MEDS ORDERED: DEXAMETHASONE 10 MG/ML VIAL IVP STA (16:23)
--- NOTE | 2019-09-09 16:25 | ED Physician Documentation ---
History of Present Illness - Stated complaint Stated Complaint: CHEMO COMPLICATIONS - Chief complaint Chief Complaint: General - History obtained from History obtained from: Patient - History of Present Illness Timing: Other (She had her first infusion of chemotherapy for breast cancer last . Starting today she is had severe bone pain of the back and hips and legs, nausea and vomiting. No fevers. It sounds like she did get something along the lines of PEG filgrastim on as well.) Review of Systems Constitutional: reports: Fatigue. denies: Fever, Chills GI: reports: Nausea, Vomiting. denies: Abdominal Pain, Diarrhea : denies: Dysuria, Frequency PD PAST MEDICAL HISTORY - Past Medical History Cardiovascular: Hypertension Respiratory: None GI: Hepatitis : None HEENT: None Psych: Anxiety, Other - Past Surgical History General: Gastric surgery Ortho: Other - Present Medications Home Medications: Ambulatory Orders Medication Instructions Recorded Confirmed Duloxetine HCl [Cymbalta] 60 mg PO DAILY 11/17/16 10/01/17 Gabapentin 100 mg PO TID 03/13/17 10/01/17 lamoTRIgine [Lamictal] 150 mg DAILY 10/01/17 10/01/17 Oxycodone HCl/Acetaminophen 1 - 2 each PO Q6H PRN #20 tablet 09/09/19 [Percocet 5-325 mg Tablet] Promethazine Supp [Phenergan Supp] 25 mg RI Q6H PRN #20 supp 09/09/19 - Allergies Allergies/Adverse Reactions: Allergies Allergy/AdvReac Type Severity Reaction Status Date / Time ketorolac tromethamine * Allergy Edema Verified 09/09/19 16:04 [From Toradol] morphine Allergy Itching Verified 09/09/19 16:04 tramadol AdvReac Itching Verified 09/09/19 16:04 - Social History Does the pt smoke?: Yes Smoking Status: Current every day smoker Does the pt drink ETOH?: No Does the pt have substance abuse?: Yes - Immunizations Immunizations are current?: Yes - POLST Patient has POLST: No PD ED PE NORMAL - Vitals Vital signs reviewed: Yes - General General: Alert and oriented X 3, No acute distress - HEENT HEENT: PERRL, EOMI - Neck Neck: Supple, no meningeal sign, No bony TTP - Cardiac Cardiac: RRR, No murmur - Respiratory Respiratory: No respiratory distress, Clear bilaterally - Abdomen Abdomen: Soft, Non tender - Back Back: No CVA TTP - Extremities Extremities: No deformity, No tenderness to palpate, No edema, No calf tenderness / cord - Neuro Neuro: Alert and oriented X 3, Normal speech Results - Vitals Vitals: Vital Signs - 24 hr 09/09/19 09/09/19 09/09/19 16:02 17:10 17:44 Temperature 36.7 C Heart Rate 95 77 87 Respiratory 22 18 16 Rate Blood Pressure 159/104 H 143/96 H 154/97 H O2 Saturation 100 100 98 Oxygen O2 Source Room air - Labs Labs: Laboratory Tests 09/09/19 09/09/19 17:12 17:12 WBC 0.5 L* RBC 3.51 L Hgb 11.1 L Hct 33.0 L MCV 94.0 MCH 31.6 H MCHC 33.6 RDW 11.8 L Plt Count 149 MPV 9.6 Neut # (Auto) Not Reportable Lymph # (Auto) Not Reportable [place] # (Auto) Not Reportable Eos # (Auto) Not Reportable Baso # (Auto) Not Reportable Absolute Nucleated RBC Not Reportable Total Counted 50 Band Neuts % (Manual) 0 Reactive Lymphs % (Man) 12 Abnorm Lymph % (Manual) 4 Nucleated RBC % Not Reportable Neutrophils # (Manual) 0.0 L* Lymphocytes # (Manual) 0.4 L Monocytes # (Manual) 0.0 Eosinophils # (Manual) 0.1 Basophils # (Manual) 0.0 Differential Comment MANUAL DIFFERENTIAL Platelet Estimate NORMAL (130-450,000) Platelet Morphology NORMAL APPEARANCE RBC Morph Micro Appear NORMAL APPEARANCE Sodium 136 Potassium 3.3 L Chloride 105 Carbon Dioxide 24 Anion Gap 7.0 BUN 16 Creatinine 0.7 Estimated GFR (MDRD) 90 Glucose 98 Calcium 8.6 Total Bilirubin 0.6 AST 13 ALT 14 Alkaline Phosphatase 59 Total Protein 6.6 L Albumin 3.5 Globulin 3.1 Albumin/Globulin Ratio 1.1 Lipase 21 L PD MEDICAL DECISION MAKING - ED course ED course: Suspect actually the bone pain is from the PEG filgrastim, now she has nausea and cannot keep down her nausea medicines. Port is accessed and she is givenDilaudid, Decadron, and Benadryl IV. Divided doses of medications were given with significant improvement in her symptoms. She is neutropenic but she has not had a fever. We discussed neutropenia and precautions for that. Departure - Departure Disposition: 01 Home, Self Care Clinical Impression: Bone pain due to G-CSF, Chemotherapy induced nausea and vomiting Condition: Good Record reviewed to determine appropriate education?: Yes Instructions: White Cell Count, Nausea Vomit Control Prescriptions: Oxycodone HCl/Acetaminophen [Percocet 5-325 mg Tablet] 1 - 2 each PO Q6H PRN #20 tablet PRN Reason: pain Promethazine Supp [Phenergan Supp] 25 mg RI Q6H PRN #20 supp PRN Reason: Nausea / Vomiting Comments: Take the copies of the labs from today and follow-up with your oncologist. He or she may want to change the next round of medications given the severity of your symptoms. Return if worse. Also return immediately if you develop a fever greater than 100.4 degrees.
[2019-09-09 17:29] LABS: BASOPHILS % (AUTO) 3.8 %; EOSINOPHILS % (AUTO) 11.3 %; HGB - HEMOGLOBIN 11.1 g/dL (12.0-16.0); LYMPHOCYTES % (AUTO) 77.4 %; MEAN CORPUSCULAR HEMOGLOBIN 31.6 pg (27.0-31.0); MEAN CORPUSCULAR HGB CONC 33.6 g/dL (32.0-36.0); MEAN PLATELET VOLUME 9.6 fL (7.9-10.8); MONOCYTES % (AUTO) 7.5 %; PLT - PLATELET COUNT 149 10^3/uL (130-450); RED BLOOD COUNT 3.51 10^6/uL (4.20-5.40); RED CELL DISTRIBUTION WIDTH 11.8 % (12.0-15.0)
[2019-09-09 17:36] LABS: WHITE BLOOD COUNT 0.5 x10^3/uL (4.8-10.8)
[2019-09-09 17:37] LABS: BAND NEUTROPHILS % (MANUAL) 0 %
[2019-09-09 17:38] LABS: ALBUMIN 3.5 g/dL (3.2-5.5); ALBUMIN/GLOBULIN RATIO 1.1 (1.0-2.2); BILIRUBIN,TOTAL 0.6 mg/dL (0.2-1.0); CALCIUM 8.6 mg/dL (8.5-10.3); CREATININE 0.7 mg/dL (0.4-1.0); TOTAL PROTEIN 6.6 g/dL (6.7-8.2)
[2019-09-09] MEDS ORDERED: ONDANSETRON 4 MG/2 ML VIAL IVP STA (17:39)
[2019-09-09 18:10] LABS: ABNORMAL LYMPHS % (MANUAL) 4 %; EOSINOPHILS # (MANUAL) 0.1 10^3/uL (0-0.7); LYMPHOCYTES # (MANUAL) 0.4 10^3/uL (1.5-3.5); LYMPHOCYTES % (MANUAL) 62 %
[2019-09-09 18:12] LABS: PLATELET ESTIMATE, MANUAL NORMAL (130-450,000) (NORMAL); PLATELET MORPHOLOGY NORMAL APPEARANCE (NORMAL); RBC MORPHOLOGY (MULTIPLE) NORMAL APPEARANCE (NORMAL)
[2019-09-09 18:13] LABS: DIFFERENTIAL COMMENT MANUAL DIFFERENTIAL
[2019-09-09] MEDS ORDERED: SCOPOLAMINE PATCH TOP STA (18:32)
[2019-09-09 19:57] VITALS: BP 145/94
== END 2019-09-09 19:57 | disposition home or self-care (01) ==
LOC: ED 15:58
DX: M89.8X0 Other specified disorders of bone, multiple sites (principal); R11.2 Nausea with vomiting, unspecified; T45.1X5A Adverse effect of antineoplastic and immunosuppressive drugs, initial encounter; C50.919 Malignant neoplasm of unspecified site of unspecified female breast; I10 Essential (primary) hypertension; F17.200 Nicotine dependence, unspecified, uncomplicated
CPT/HCPCS: 36415; 80053; 83690; 85025; 96374; 96375; 96376; 99284; 99285; J1170; J1200; J3490

== ENCOUNTER 2019-09-25 16:13 | Inpatient (IN) | payer OTHER, MEDICARE ==
--- NOTE | 2019-09-25 17:26 | ED Physician Documentation ---
History of Present Illness - Stated complaint Stated Complaint: FEVER/ONCOLOGY PT - Chief complaint Chief Complaint: Fever - Additonal information Additional information: This is a 49-year-old female with a history of breast cancer, on chemotherapy and past colon resection, who presents with fever. Patient had her most recent round of chemotherapy on the , she began having some vomiting diarrhea in the last several days, and then today she developed a fever which initially was 100.8 but then progressed to 101. She took Tylenol and ibuprofen at home. She called her oncologist or asked that she come here. She has had some runny nose for the last week or so, denies significant cough, abdominal pain, or dysuria. Review of Systems Constitutional: reports: Fever Nose: denies: Rhinorrhea / runny nose Throat: denies: Oral lesions / sores Cardiac: denies: Chest pain / pressure Respiratory: denies: Dyspnea : denies: Dysuria Skin: denies: Rash Immunocompromised: reports: Immunocompromised PD PAST MEDICAL HISTORY - Past Medical History Cardiovascular: Hypertension Respiratory: None GI: Hepatitis : None HEENT: None Psych: Anxiety, Other - Past Surgical History General: Gastric surgery Ortho: Other - Present Medications Home Medications: Ambulatory Orders Medication Instructions Recorded Confirmed Duloxetine HCl [Cymbalta] 60 mg PO DAILY 11/17/16 09/26/19 Buprenorphine HCl/Naloxone HCl 1 film SL BID 09/26/19 09/26/19 [Suboxone 8 mg-2 mg Sl Film] D-Amphetamine 30mg Er 1 tab PO DAILY 09/26/19 09/26/19 Trazodone HCl 50 mg PO QPM 09/26/19 09/26/19 lamoTRIgine [Lamictal] 200 mg PO DAILY 09/26/19 09/26/19 - Allergies Allergies/Adverse Reactions: Allergies Allergy/AdvReac Type Severity Reaction Status Date / Time ketorolac tromethamine * Allergy Edema Verified 09/25/19 16:22 [From Toradol] morphine Allergy Itching Verified 09/25/19 16:22 tramadol AdvReac Itching Verified 09/25/19 16:22 - Social History Does the pt smoke?: Yes Smoking Status: Current every day smoker Does the pt drink ETOH?: No Does the pt have substance abuse?: Yes - Immunizations Immunizations are current?: Yes - POLST Patient has POLST: No PD ED PE NORMAL - Vitals Vital signs reviewed: Yes - General General: Alert and oriented X 3 - HEENT HEENT: Atraumatic, PERRL, Moist mucous membranes, Pharynx benign - Neck Neck: Supple, no meningeal sign - Cardiac Cardiac: Other (Tachycardic, regular rhythm) - Respiratory Respiratory: No respiratory distress, Clear bilaterally - Abdomen Abdomen: Normal bowel sounds - Derm Derm: Warm and dry - Extremities Extremities: No deformity - Neuro Neuro: Alert and oriented X 3 - Psych Psych: Normal affect Results - Vitals Vitals: Vital Signs - 24 hr 09/25/19 18:46 Heart Rate 97 Respiratory 19 Rate Blood Pressure 105/78 O2 Saturation 100 Oxygen O2 Source Room air - Labs Labs: Microbiology 09/25/19 18:05 Blood Culture - Preliminary Blood NO GROWTH AFTER 1 DAY Laboratory Tests 09/25/19 09/25/19 09/25/19 18:05 18:05 18:05 WBC 1.0 L* RBC 2.83 L Hgb 8.7 L Hct 25.8 L MCV 91.2 MCH 30.7 MCHC 33.7 RDW 11.6 L Plt Count 159 MPV 9.0 Neut # (Auto) 0.3 L* Lymph # (Auto) 0.5 L [place] # (Auto) 0.2 Eos # (Auto) 0.0 Baso # (Auto) 0.0 Absolute Nucleated RBC 0.00 Total Counted [employer] Band Neuts % (Manual) Not Reportable Abnorm Lymph % (Manual) Not Reportable Nucleated RBC % 0.0 Neutrophils # (Manual) Not Reportable Lymphocytes # (Manual) Not Reportable Monocytes # (Manual) Not Reportable Eosinophils # (Manual) Not Reportable Basophils # (Manual) Not Reportable Differential Comment MANUAL=AUTO DIFF Manual Slide Review Indicated Platelet Estimate NORMAL (130-450,000) Platelet Morphology NORMAL APPEARANCE RBC Morph Micro Appear 1+ HYPOCHROMASIA PT 13.4 H INR 1.2 Sodium 134 L Potassium 3.6 Chloride 100 L Carbon Dioxide 25 Anion Gap 9.0 BUN 9 Creatinine 0.8 Estimated GFR (MDRD) 77 L Glucose 91 Lactic Acid Calcium 8.9 Total Bilirubin 0.5 AST 13 ALT 11 Alkaline Phosphatase 55 Total Protein 7.0 Albumin 3.4 Globulin 3.6 Albumin/Globulin Ratio 0.9 L Lipase 20 L Influenza A (Rapid) Influenza B (Rapid) 09/25/19 09/25/19 18:05 18:20 WBC RBC Hgb Hct MCV MCH MCHC RDW Plt Count MPV Neut # (Auto) Lymph # (Auto) [place] # (Auto) Eos # (Auto) Baso # (Auto) Absolute Nucleated RBC Total Counted Band Neuts % (Manual) Abnorm Lymph % (Manual) Nucleated RBC % Neutrophils # (Manual) Lymphocytes # (Manual) Monocytes # (Manual) Eosinophils # (Manual) Basophils # (Manual) Differential Comment Manual Slide Review Platelet Estimate Platelet Morphology RBC Morph Micro Appear PT INR Sodium Potassium Chloride Carbon Dioxide Anion Gap BUN Creatinine Estimated GFR (MDRD) Glucose Lactic Acid 1.2 Calcium Total Bilirubin AST ALT Alkaline Phosphatase Total Protein Albumin Globulin Albumin/Globulin Ratio Lipase Influenza A (Rapid) Negative Influenza B (Rapid) Negative - Rads (name of study) CXR Radiology: Other (No acute cardiopulmonary abnormality) PD MEDICAL DECISION MAKING - ED course Complexity details: considered differential (Neutropenic fever, pneumonia, bacteremia, UTI, URI) ED course: Pt presents febrile and tachycardic, but without localizing symptoms that would suggest an obvious source of infection. XR unremarkable. CBC shows neutropenia. Port accessed, fluids and anti-pyretics given, along with empiric vancomycin and cefepime after blood cultures drawn. Rapid flu negative. Patient is hemodynamically stable and non-toxic appearing. I contacted Dr. Campbell who agreed to admit patient for further evaluation and treatment. Please refer to his notes for further hospital course. Departure - Departure Disposition: [facility] DC/Xfer Clinical Impression: Neutropenic fever Discharge Date/Time: 09/25/19 20:35
[2019-09-25] MEDS ORDERED: CEFEPIME 2 GM in SODIUM CHLORIDE 0.9% MINIBAG 100 ML IV STA (17:33)
[2019-09-25] MEDS ORDERED: SODIUM CHLORIDE 0.9% 1,000 ML IV ONE (17:33)
[2019-09-25] MEDS ORDERED: VANCOMYCIN INJ 1.5 GM in SODIUM CHLORIDE 0.9% 500 ML IV STA (17:33)
[2019-09-25] MEDS ORDERED: ONDANSETRON 4 MG/2 ML VIAL IVP STA (17:52)
[2019-09-25] MEDS ORDERED: MORPHINE 2 MG/ML CARPUJECT IVP STA (17:52)
[2019-09-25] MEDS ORDERED: diphenhydrAMINE INJ 50 MG/ML VIAL IVP STA (17:53)
[2019-09-25 18:11] LABS: HGB - HEMOGLOBIN 8.7 g/dL (12.0-16.0); LYMPHOCYTES # (AUTO) 0.5 10^3/uL (1.5-3.5); LYMPHOCYTES % (AUTO) 50.5 %; MEAN CORPUSCULAR HEMOGLOBIN 30.7 pg (27.0-31.0); MEAN CORPUSCULAR HGB CONC 33.7 g/dL (32.0-36.0); MEAN CORPUSCULAR VOLUME 91.2 fL (81.0-99.0); MONOCYTES # (AUTO) 0.2 10^3/uL (0.0-1.0); MONOCYTES % (AUTO) 17.8 %; NEUTROPHILS % (AUTO) 27.7 %; PLT - PLATELET COUNT 159 10^3/uL (130-450); RED BLOOD COUNT 2.83 10^6/uL (4.20-5.40); RED CELL DISTRIBUTION WIDTH 11.6 % (12.0-15.0)
[2019-09-25 18:14] LABS: NEUTROPHILS # (AUTO) 0.3 10^3/uL (1.5-6.6)
[2019-09-25 18:21] LABS: INR 1.2 (0.8-1.2); PT - PROTHROMBIN TIME 13.4 secs (9.9-12.6)
[2019-09-25 18:23] LABS: ALBUMIN 3.4 g/dL (3.2-5.5); ALBUMIN/GLOBULIN RATIO 0.9 (1.0-2.2); BILIRUBIN,TOTAL 0.5 mg/dL (0.2-1.0); CALCIUM 8.9 mg/dL (8.5-10.3); CREATININE 0.8 mg/dL (0.4-1.0)
[2019-09-25] MEDS ORDERED: HYDROmorphone 2 MG/ML VIAL IVP STA (18:47)
--- NOTE | 2019-09-25 18:51 | XRAY Report ---
Reason: cough Procedure Date: 09/25/2019 Accession Number: [id number] / [id number] Procedure: XR - Chest 2 View X-Ray CPT Code: 42912 Final Report FULL RESULT: EXAM: CHEST RADIOGRAPHY EXAM DATE: 09/25/2019 06:17 PM. CLINICAL HISTORY: Cough. COMPARISON: CHEST 1 VIEW 03/17/2017 6:36 PM. TECHNIQUE: 2 views. FINDINGS: Lungs/Pleura: No focal opacities evident. No pleural effusion. No pneumothorax. Normal volumes. Mediastinum: Heart and mediastinal contours are unremarkable. Other: None. IMPRESSION: No evidence for acute cardiopulmonary process. RADIA
[2019-09-25 19:19] LABS: DIFFERENTIAL COMMENT MANUAL=AUTO DIFF; PLATELET ESTIMATE, MANUAL NORMAL (130-450,000) (NORMAL); PLATELET MORPHOLOGY NORMAL APPEARANCE (NORMAL)
[2019-09-25] MEDS ORDERED: ACETAMINOPHEN 325 MG TABLET PO PRN (20:07)
[2019-09-25] MEDS ORDERED: MORPHINE 2 MG/ML CARPUJECT IVP PRN (20:07)
--- NOTE | 2019-09-25 20:30 | HISTORY & PHYSICAL EXAMINATION ---
Chief Complaint - Chief Complaint Chief Complaint: n/v/d, fever, bodyache History of Present Illness - Admitted From Admitted From:: [facility] ED - History Obtained From Records Reviewed: yes History obtained from: patient - History of Present Illness HPI Comment/Other: Patient is a 49 y/o female with Stage II breast cancer diagnosed in June of 2019who presented to the ED today with complain of generalized body ached. She describes it as an intense bone and back pain. She has also been nauseous with episodes of vomiting and diarrhea. Her symptoms started yesterday but got worse today. Her oncologist is Dr Harrell at [place]. She is on chemotherapy every other week and last received chemotherapy on 09/16/2019. She reports feeling di zzy today. She denies chest pain or dyspnea. In the ED she had a temp of 101F and was found to have a WBC of 1 with a neutrophil count of 0.3. 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 Living arrangement: At home Living Situation: With spouse/s.o. Social History Notes: She smoked 0.5ppd for 20 yrs. She quit smoking 7 weeks ago. She Vapes. She denies illicit drug use. Occassionaly uses alcohol. - POLST Patient has POLST: No POLST Status: Full Code Meds/Allgy - Home Medications Home Medications: Ambulatory Orders Medication Instructions Recorded Confirmed Duloxetine HCl [Cymbalta] 60 mg PO DAILY 11/17/16 10/01/17 Gabapentin 100 mg PO TID 03/13/17 10/01/17 lamoTRIgine [Lamictal] 150 mg DAILY 10/01/17 10/01/17 Oxycodone HCl/Acetaminophen 1 - 2 each PO Q6H PRN #20 tablet 09/09/19 [Percocet 5-325 mg Tablet] Promethazine Supp [Phenergan Supp] 25 mg ND Q6H PRN #20 supp 09/09/19 - Allergies Allergies/Adverse Reactions: Allergies Allergy/AdvReac Type Severity Reaction Status Date / Time ketorolac tromethamine * Allergy Edema Verified 09/25/19 16:22 [From Toradol] morphine Allergy Itching Verified 09/25/19 16:22 tramadol AdvReac Itching Verified 09/25/19 16:22 Review of Systems - Constitutional Constitutional: reports: Fever, Malaise - Eyes Eyes: denies: Pain, Dipolpia - Ears, Nose & Throat Ears, Nose & Throat: reports: Nasal congestion, Dentures. denies: Vertigo, Hoarseness - Cardiovascular Cariovascular: reports: Palpitations, Lightheadedness. denies: Chest pain, Edema - Respiratory Respiratory: denies: Cough, Wheezing, SOB at rest, SOB with exertion - Gastrointestinal Gastrointestinal: reports: Diarrhea, Nausea, Vomiting. denies: Coffee grounds emesis, Reflux/heartburn - Genitourinary Genitourinary: denies: Dysuria, Frequency, Urgency, Hematuria - Musculoskeletal Musculoskeletal: reports: Back pain, Other (generalized bodyaches). denies: Muscle pain - Integumentary Integumentary: reports: Pruritis, Hair changes (hair loss 2/2 chemotherapy). denies: Rash, Lesions - Neurological Neurological: denies: Focal weakness, Headache, Dizziness - Psychiatric Psychiatric: reports: Depression - Endocrine Endocrine: denies: Polyuria, Polydypsia - Hematologic/Lymphatic Hematologic/Lymphatic: denies: Anemia, Bruising, Petechiae Prior Level of Functionality: Patient is independent of activities of daily living Exam - Vital Signs Vital Signs: Vital Signs x48h Temp Pulse Resp BP Pulse Ox 09/25/19 20:14 37.4 C 95 16 100/57 L 100 09/25/19 19:41 69 17 105/71 99 09/25/19 18:46 97 19 105/78 100 09/25/19 16:22 37.9 C H 122 H 20 106/69 98 - Physical Exam General Appearance: positive: Alert, Moderate distress, Severe distress. negative: Lethargic Eyes Bilateral: positive: Normal inspection, PERRL, EOMI ENT: positive: ENT inspection nml, Dry mucous membranes Neck: positive: Nml inspection, No JVD, Trachea midline Respiratory: positive: Chest non-tender, No respiratory distress, Breath sounds nml. negative: Wheezes, Rales, Rhonchi Cardiovascular: positive: Tachycardia Abdomen: positive: Non-tender, No organomegaly, Nml bowel sounds, No distention Back: positive: Nml inspection Skin: positive: Color nml, No rash, Warm, Dry Extremities: positive: Non-tender, Full ROM, No pedal edema Neurologic/Psychiatric: positive: Oriented x3, Mood/affect nml Conclusion/Plan - Problem List (1) Neutropenic fever Conclusion/Plan: Patient started on vancomycin and cefepime. Will continue Blood cultures pending. Tylenol for fever. IV hydration. Neutropenic diet and neutropenic precautions. Pain management with dilaudid, oxycodone and/or tylenol depending on scale. Patient takes suboxone at home (2) Breast cancer Conclusion/Plan: Stage II. Diagnosed in June 2019. Patient sees Dr Harrell at [place] She is currently on chemotherapy every other week. Last chemotherapy was 09/16/19 (3) Chemotherapy induced nausea and vomiting Conclusion/Plan: Zofran and ativan ordered (4) Depression Conclusion/Plan: On duloxetine On lamotrogine for mood stabilization Will resume medications when verified by pharmacy (5) Insomnia Conclusion/Plan: On trazodone at home. Given bendaryl. - Lab Results Fish Bones: 09/25/19 18:05 09/25/19 18:05 Core Measures - Anticipated LOS I expect patient to be DC'd or transferred within 96 hours.: Yes - DVT/VTE - Prophylaxis VTE/DVT Device ordered at admit?: Yes VTE/DVT Prophylaxis med ordered at admit?: Yes
[2019-09-25] MEDS ORDERED: VANCOMYCIN PER PHARMACY 100 GM in SODIUM CHLORIDE 0.9% 250 ML IV SCH (21:00)
[2019-09-25] MEDS: HYDROmorphone 0.5 MG/0.5 ML SYRINGE IVP PRN (21:04)
[2019-09-25] MEDS: SODIUM CHLORIDE FLUSH 0.9% 10 ML SYRINGE IVP PRN ×2 (21:05→22:17)
[2019-09-25] MEDS ORDERED: HYDROmorphone 1 MG/ML CARPUJECT ONE (21:07)
[2019-09-25 21:16] LABS: BILIRUBIN,URINE NEGATIVE (NEGATIVE); GLUCOSE, URINE (UA) NEGATIVE (NEGATIVE); KETONES,URINE (UA) NEGATIVE (NEGATIVE); LEUKOCYTE ESTERASE, URINE NEGATIVE (NEGATIVE); NITRITE,URINE NEGATIVE (NEGATIVE); OCCULT BLOOD,URINE NEGATIVE (NEGATIVE); PROTEIN,URINE NEGATIVE (NEGATIVE); UROBILINOGEN,URINE 0.2 (NORMAL) E.U./dL (NORMAL)
[2019-09-25 21:20] LABS: CLARITY,URINE CLEAR (CLEAR)
[2019-09-25] MEDS ORDERED: diphenhydrAMINE 25 MG CAPSULE PO PRN (21:44)
[2019-09-25] MEDS ORDERED: LORazepam 1 MG TABLET PO PRN (21:45)
[2019-09-25] MEDS: SODIUM CHLORIDE 0.9% 1,000 ML IV SCH (22:02)
[2019-09-25] MEDS: ONDANSETRON 4 MG/2 ML VIAL IVP PRN (22:17)
[2019-09-25] MEDS: LORazepam 2 MG/ML VIAL IVP PRN (22:43)
[2019-09-25] MEDS: diphenhydrAMINE INJ 50 MG/ML VIAL IVP PRN (22:43)
[2019-09-25] MEDS: SODIUM CHLORIDE FLUSH 0.9% 10 ML SYRINGE IVP SCH (23:38)
[2019-09-25] MEDS: oxyCODONE 5 MG TABLET PO PRN (23:59)
[2019-09-26] MEDS: SODIUM CHLORIDE FLUSH 0.9% 10 ML SYRINGE IVP SCH ×4 (01:33→23:39)
[2019-09-26] MEDS: HYDROmorphone 0.5 MG/0.5 ML SYRINGE IVP PRN ×7 (01:33→21:47)
[2019-09-26] MEDS ORDERED: CEFEPIME 2 GM in SODIUM CHLORIDE 0.9% MINIBAG 100 ML IV SCH (03:00)
[2019-09-26] MEDS: LORazepam 2 MG/ML VIAL IVP PRN ×5 (03:26→23:38)
[2019-09-26] MEDS: diphenhydrAMINE INJ 50 MG/ML VIAL IVP PRN ×4 (03:26→23:38)
[2019-09-26] MEDS: oxyCODONE 5 MG TABLET PO PRN ×3 (04:45→20:25)
[2019-09-26] MEDS: SODIUM CHLORIDE FLUSH 0.9% 10 ML SYRINGE IVP PRN ×5 (06:14→23:39)
[2019-09-26] MEDS: PANTOPRAZOLE 40 MG TABLET PO SCH (06:14)
[2019-09-26] MEDS: ONDANSETRON 4 MG/2 ML VIAL IVP PRN ×3 (06:14→18:39)
[2019-09-26 07:02] LABS: CALCIUM 8.3 mg/dL (8.5-10.3); CREATININE 0.7 mg/dL (0.4-1.0)
[2019-09-26 07:06] LABS: LYMPHOCYTES % (AUTO) 41.6 %; MEAN CORPUSCULAR HEMOGLOBIN 30.9 pg (27.0-31.0); MEAN CORPUSCULAR HGB CONC 32.7 g/dL (32.0-36.0); MEAN CORPUSCULAR VOLUME 94.5 fL (81.0-99.0); MONOCYTES % (AUTO) 8.7 %; NEUTROPHILS % (AUTO) 39.6 %; RED BLOOD COUNT 2.72 10^6/uL (4.20-5.40); RED CELL DISTRIBUTION WIDTH 11.7 % (12.0-15.0)
[2019-09-26 07:57] LABS: WHITE BLOOD COUNT 1.5 x10^3/uL (4.8-10.8)
[2019-09-26 07:58] LABS: HGB - HEMOGLOBIN 8.4 g/dL (12.0-16.0)
[2019-09-26 07:59] LABS: ABNORMAL LYMPHS % (MANUAL) 0 %
[2019-09-26] MEDS ORDERED: VANCOMYCIN INJ 1.5 GM in SODIUM CHLORIDE 0.9% 500 ML IV SCH (08:00)
[2019-09-26 08:07] LABS: BAND NEUTROPHILS % (MANUAL) 7 %; LYMPHOCYTES # (MANUAL) 0.7 10^3/uL (1.5-3.5); LYMPHOCYTES % (MANUAL) 48 %; MONOCYTES # (MANUAL) 0.3 10^3/uL (0.0-1.0)
[2019-09-26 08:08] LABS: METAMYELOCYTES % (MANUAL) 2 %
[2019-09-26 08:09] LABS: DIFFERENTIAL COMMENT MANUAL DIFFERENTIAL; PLATELET MORPHOLOGY RARE GIANT PLATELETS (NORMAL)
[2019-09-26 08:10] LABS: PLATELET ESTIMATE, MANUAL DECREASED (<130,000) (NORMAL)
[2019-09-26] MEDS: VANCOMYCIN INJ 1 GM, VANCOMYCIN INJ 500 MG in SODIUM CHLORIDE 0.9% 500 ML IV SCH ×2 (10:20→21:49)
--- NOTE | 2019-09-26 12:14 | PROVIDER PROGRESS NOTE ---
Subjective - Prog Note Date Prog Note Date: 09/26/19 Prog Note Time: 09:00 - Subjective Pt reports feeling: No change Subjective: hurts all over, bones just ache. Headache but not severe, no photophobia or nuchal pain nausea, no emesis abd has generalized "grumbling" but no specific pain Diarrhea once, no blood Denies cough, sob, chest congestion, sore throat, or ear pain Current Medications - Current Medications Current Medications: Active Medications Acetaminophen (Tylenol) 650 mg PO Q4HR PRN PRN Reason: Pain 1 to 4 Diphenhydramine HCl (Benadryl Inj) 25 mg IVP Q6H PRN PRN Reason: Allergy Symptoms Last Admin: 09/26/19 03:26 Dose: 25 mg Hydromorphone HCl (Dilaudid Inj Syringe) 1 mg IVP Q3H PRN PRN Reason: PAIN Last Admin: 09/26/19 10:18 Dose: 1 mg Sodium Chloride (Normal Saline 0.9%) 1,000 mls @ 125 mls/hr IV .Q8H ONEIL Last Admin: 09/25/19 22:02 Dose: 125 mls/hr Cefepime HCl 2 gm/ Sodium (Chloride) 100 mls @ 200 mls/hr IV Q8H ONEIL Vancomycin HCl 1 gm/Vancomycin HCl 500 mg/ Sodium Chloride 500 mls @ 250 mls/hr IV Q12H ONEIL Last Infusion: 09/26/19 11:35 Dose: Infused Lorazepam (Ativan Inj (Vial)) 0.5 mg IVP Q4H PRN PRN Reason: Anxiety Last Admin: 09/26/19 03:26 Dose: 0.5 mg Ondansetron HCl (Zofran Inj) 4 mg IVP Q6HR PRN PRN Reason: Nausea / Vomiting Last Admin: 09/26/19 06:14 Dose: 4 mg Oxycodone HCl (Roxicodone) 5 mg PO Q4HR PRN PRN Reason: Pain 5 to 7 Last Admin: 09/26/19 04:45 Dose: 5 mg Pantoprazole Sodium (Protonix) 40 mg PO QDAC ONEIL Last Admin: 09/26/19 06:14 Dose: 40 mg Sodium Chloride (Normal Saline Flush 0.9%) 10 ml IVP PRN PRN PRN Reason: NEEDED PER PROVIDER ORDERS Last Admin: 09/26/19 06:14 Dose: 10 ml Sodium Chloride (Normal Saline Flush 0.9%) 10 ml IVP 0100,0900,1700 ONEIL Last Admin: 09/26/19 06:14 Dose: 10 ml Duloxetine HCl [Cymbalta] 60 mg PO DAILY 11/17/16 Buprenorphine HCl/Naloxone HCl [Suboxone 8 mg-2 mg Sl Film] 1 film SL BID 09/26/19 D-Amphetamine 30mg Er 1 tab PO DAILY 09/26/19 Trazodone HCl 50 mg PO QPM 09/26/19 lamoTRIgine [Lamictal] 200 mg PO DAILY 09/26/19 Objective - Vital Signs/Intake & Output Reviewed Vital Signs: Yes Vital Signs: Vital Signs x48h Temp Pulse Resp BP Pulse Ox 09/26/19 08:00 36.7 C 87 18 117/75 97 Intake & Output: Intake & Output 09/23/19 09/24/19 09/25/19 09/26/19 23:59 23:59 23:59 23:59 Intake Total 1975 720 Output Total 500 1200 Balance 1475 -480 - Objective General Appearance: positive: No acute distress, Alert, Other (room dark, she was sleeping but wakes easily, has no appetite.) Eyes Bilateral: positive: PERRL, EOMI ENT: positive: Pharynx nml, No signs of dehydration Neck: positive: No JVD Respiratory: positive: Chest non-tender. negative: Wheezes, Rales, Rhonchi Cardiovascular: positive: Regular rate & rhythm, Other (left upper chest wall, under clavicle, is boggy around port site, no redness, no heat.). negative: Systolic murmur, Gallop/S4, Friction rub Abdomen: positive: Non-tender, No organomegaly, Nml bowel sounds, No distention Skin: positive: Warm, Dry, Pallor Extremities: positive: Non-tender, No pedal edema Neurologic/Psychiatric: positive: Oriented x3, CN's nml (2-12), Motor nml - Lab Results Fish Bones: 09/26/19 06:31 09/26/19 06:31 Other Labs: Lab Results x24hrs 09/26/19 09/26/19 09/25/19 Range/Units 06:31 06:31 21:00 WBC 1.5 L* (4.8-10.8) x10^3/uL RBC 2.72 L (4.20-5.40) 10^6/uL Hgb 8.4 L (12.0-16.0) g/dL Hct 25.7 L (37.0-47.0) % MCV 94.5 (81.0-99.0) fL MCH 30.9 (27.0-31.0) pg MCHC 32.7 (32.0-36.0) g/dL RDW 11.7 L (12.0-15.0) % Plt Count (130-450) 10^3/uL MPV (7.9-10.8) fL Neut # (Auto) Not Reportable (1.5-6.6) 10^3/uL Lymph # (Auto) Not Reportable (1.5-3.5) 10^3/uL Garden # (Auto) Not Reportable (0.0-1.0) 10^3/uL Eos # (Auto) Not Reportable (0.0-0.7) 10^3/uL Baso # (Auto) Not Reportable (0.0-0.1) 10^3/uL Absolute Nucleated RBC Not Reportable x10^3/uL Total Counted 100 Band Neuts % (Manual) 7 Abnorm Lymph % (Manual) 0 Metamyelocytes % 2 H ( - 0) % Nucleated RBC % Not Reportable /100WBC Neutrophils # (Manual) 0.5 L* Lymphocytes # (Manual) 0.7 L Monocytes # (Manual) 0.3 Eosinophils # (Manual) 0.0 Basophils # (Manual) 0.0 Differential Comment MANUAL DIFFERENTIAL Manual Slide Review WBC Morphology 2+ DOHLE B (NORMAL) Platelet Estimate DECREASED (<130,000) (NORMAL) Platelet Morphology RARE GIANT PLATELETS (NORMAL) RBC Morph Micro Appear 2+ MICROCYTOSIS (NORMAL) PT (9.9-12.6) secs INR (0.8-1.2) Sodium 139 (135-145) mmol/L Potassium 3.6 (3.5-5.0) mmol/L Chloride 109 (101-111) mmol/L Carbon Dioxide 23 (21-32) mmol/L Anion Gap 7.0 (6-13) BUN 8 (6-20) mg/dL Creatinine 0.7 (0.4-1.0) mg/dL Estimated GFR (MDRD) 90 (>89) Glucose 89 (70-100) mg/dL Lactic Acid (0.5-2.2) mmol/L Calcium 8.3 L (8.5-10.3) mg/dL Total Bilirubin (0.2-1.0) mg/dL AST (10-42) IU/L ALT (10-60) IU/L Alkaline Phosphatase (42-121) IU/L Total Protein (6.7-8.2) g/dL Albumin (3.2-5.5) g/dL Globulin (2.1-4.2) g/dL Albumin/Globulin Ratio (1.0-2.2) Lipase (22-51) U/L Urine Color Urine Clarity (CLEAR) Urine pH (5.0-7.5) PH Ur Specific [place] (1.002-1.030) Urine Protein (NEGATIVE) mg/dL Urine Glucose (UA) (NEGATIVE) mg/dL Urine Ketones (NEGATIVE) mg/dL Urine Occult Blood (NEGATIVE) Urine Nitrite (NEGATIVE) Urine Bilirubin (NEGATIVE) Urine Urobilinogen (NORMAL) E.U./dL Ur Leukocyte Esterase (NEGATIVE) Ur Microscopic Review Urine Culture Comments Nasal Screen MRSA (PCR) NEGATIVE (NEGATIVE) Influenza A (Rapid) (Negative) Influenza B (Rapid) (Negative) 09/25/19 09/25/19 09/25/19 Range/Units 20:50 18:20 18:05 WBC (4.8-10.8) x10^3/uL RBC (4.20-5.40) 10^6/uL Hgb (12.0-16.0) g/dL Hct (37.0-47.0) % MCV (81.0-99.0) fL MCH (27.0-31.0) pg MCHC (32.0-36.0) g/dL RDW (12.0-15.0) % Plt Count (130-450) 10^3/uL MPV (7.9-10.8) fL Neut # (Auto) (1.5-6.6) 10^3/uL Lymph # (Auto) (1.5-3.5) 10^3/uL Garden # (Auto) (0.0-1.0) 10^3/uL Eos # (Auto) (0.0-0.7) 10^3/uL Baso # (Auto) (0.0-0.1) 10^3/uL Absolute Nucleated RBC x10^3/uL Total Counted Band Neuts % (Manual) Abnorm Lymph % (Manual) Metamyelocytes % ( - 0) % Nucleated RBC % /100WBC Neutrophils # (Manual) Lymphocytes # (Manual) Monocytes # (Manual) Eosinophils # (Manual) Basophils # (Manual) Differential Comment Manual Slide Review WBC Morphology (NORMAL) Platelet Estimate (NORMAL) Platelet Morphology (NORMAL) RBC Morph Micro Appear (NORMAL) PT (9.9-12.6) secs INR (0.8-1.2) Sodium (135-145) mmol/L Potassium (3.5-5.0) mmol/L Chloride (101-111) mmol/L Carbon Dioxide (21-32) mmol/L Anion Gap (6-13) BUN (6-20) mg/dL Creatinine (0.4-1.0) mg/dL Estimated GFR (MDRD) (>89) Glucose (70-100) mg/dL Lactic Acid 1.2 (0.5-2.2) mmol/L Calcium (8.5-10.3) mg/dL Total Bilirubin (0.2-1.0) mg/dL AST (10-42) IU/L ALT (10-60) IU/L Alkaline Phosphatase (42-121) IU/L Total Protein (6.7-8.2) g/dL Albumin (3.2-5.5) g/dL Globulin (2.1-4.2) g/dL Albumin/Globulin Ratio (1.0-2.2) Lipase (22-51) U/L Urine Color YELLOW Urine Clarity CLEAR (CLEAR) Urine pH 7.0 (5.0-7.5) PH Ur Specific [place] <=1.005 (1.002-1.030) Urine Protein NEGATIVE (NEGATIVE) mg/dL Urine Glucose (UA) NEGATIVE (NEGATIVE) mg/dL Urine Ketones NEGATIVE (NEGATIVE) mg/dL Urine Occult Blood NEGATIVE (NEGATIVE) Urine Nitrite NEGATIVE (NEGATIVE) Urine Bilirubin NEGATIVE (NEGATIVE) Urine Urobilinogen 0.2 (NORMAL) (NORMAL) E.U./dL Ur Leukocyte Esterase NEGATIVE (NEGATIVE) Ur Microscopic Review NOT INDICATED Urine Culture Comments NOT INDICATED Nasal Screen MRSA (PCR) (NEGATIVE) Influenza A (Rapid) Negative (Negative) Influenza B (Rapid) Negative (Negative) 09/25/19 09/25/19 09/25/19 Range/Units 18:05 18:05 18:05 WBC 1.0 L* (4.8-10.8) x10^3/uL RBC 2.83 L (4.20-5.40) 10^6/uL Hgb 8.7 L (12.0-16.0) g/dL Hct 25.8 L (37.0-47.0) % MCV 91.2 (81.0-99.0) fL MCH 30.7 (27.0-31.0) pg MCHC 33.7 (32.0-36.0) g/dL RDW 11.6 L (12.0-15.0) % Plt Count 159 (130-450) 10^3/uL MPV 9.0 (7.9-10.8) fL Neut # (Auto) 0.3 L* (1.5-6.6) 10^3/uL Lymph # (Auto) 0.5 L (1.5-3.5) 10^3/uL Garden # (Auto) 0.2 (0.0-1.0) 10^3/uL Eos # (Auto) 0.0 (0.0-0.7) 10^3/uL Baso # (Auto) 0.0 (0.0-0.1) 10^3/uL Absolute Nucleated RBC 0.00 x10^3/uL Total Counted QA AUDITOR Band Neuts % (Manual) Not Reportable Abnorm Lymph % (Manual) Not Reportable Metamyelocytes % ( - 0) % Nucleated RBC % 0.0 /100WBC Neutrophils # (Manual) Not Reportable Lymphocytes # (Manual) Not Reportable Monocytes # (Manual) Not Reportable Eosinophils # (Manual) Not Reportable Basophils # (Manual) Not Reportable Differential Comment MANUAL=AUTO DIFF Manual Slide Review Indicated WBC Morphology (NORMAL) Platelet Estimate NORMAL (130-450,000) (NORMAL) Platelet Morphology NORMAL APPEARANCE (NORMAL) RBC Morph Micro Appear 1+ HYPOCHROMASIA (NORMAL) PT 13.4 H (9.9-12.6) secs INR 1.2 (0.8-1.2) Sodium 134 L (135-145) mmol/L Potassium 3.6 (3.5-5.0) mmol/L Chloride 100 L (101-111) mmol/L Carbon Dioxide 25 (21-32) mmol/L Anion Gap 9.0 (6-13) BUN 9 (6-20) mg/dL Creatinine 0.8 (0.4-1.0) mg/dL Estimated GFR (MDRD) 77 L (>89) Glucose 91 (70-100) mg/dL Lactic Acid (0.5-2.2) mmol/L Calcium 8.9 (8.5-10.3) mg/dL Total Bilirubin 0.5 (0.2-1.0) mg/dL AST 13 (10-42) IU/L ALT 11 (10-60) IU/L Alkaline Phosphatase 55 (42-121) IU/L Total Protein 7.0 (6.7-8.2) g/dL Albumin 3.4 (3.2-5.5) g/dL Globulin 3.6 (2.1-4.2) g/dL Albumin/Globulin Ratio 0.9 L (1.0-2.2) Lipase 20 L (22-51) U/L Urine Color Urine Clarity (CLEAR) Urine pH (5.0-7.5) PH Ur Specific [place] (1.002-1.030) Urine Protein (NEGATIVE) mg/dL Urine Glucose (UA) (NEGATIVE) mg/dL Urine Ketones (NEGATIVE) mg/dL Urine Occult Blood (NEGATIVE) Urine Nitrite (NEGATIVE) Urine Bilirubin (NEGATIVE) Urine Urobilinogen (NORMAL) E.U./dL Ur Leukocyte Esterase (NEGATIVE) Ur Microscopic Review Urine Culture Comments Nasal Screen MRSA (PCR) (NEGATIVE) Influenza A (Rapid) (Negative) Influenza B (Rapid) (Negative) ABX Reporting Has patient been on IV antibiotics over the past 48 hours?: Yes Assessment/Plan - Problem List (1) Neutropenic fever Impression: She is a breast cancer patient on chemotherapy with last dose 09/16/19. Presented as generalized body aches and intense, intense diffuse wes pain. Patient started on vancomycin and cefepime, Day #2. Will continue Blood cultures pending. Urinalysis was normal. Chest xray normal. ANC 735 today. Plan: Tylenol for fever. IV hydration. Neutropenic diet and neutropenic precautions. Pain management with dilaudid, oxycodone and/or tylenol depending on scale. Patient takes suboxone at home Continue empiric abx (2) Breast cancer Conclusion/Plan: Stage II. Diagnosed in June 2019. Patient sees Dr Harrell at [place] She is currently on chemotherapy every other week. Last chemotherapy was 09/16/19. There seems to be infusion of IVF and abx into SQ space around left upper chest port. De-accessed and new attempt today. Patient is not happy. (3) Chemotherapy induced nausea and vomiting Conclusion/Plan: Zofran and ativan ordered (4) Depression Conclusion/Plan: On duloxetine On lamotrogine for mood stabilization Will resume medications when verified by pharmacy (5) Insomnia Conclusion/Plan: On trazodone at home. Given bendaryl.
[2019-09-26] MEDS: CEFEPIME 2 GM in SODIUM CHLORIDE 0.9% MINIBAG 100 ML IV SCH ×2 (12:54→20:44)
[2019-09-26] MEDS: SODIUM CHLORIDE 0.9% 1,000 ML IV SCH ×3 (12:56→20:44)
[2019-09-26] MEDS ORDERED: traZODone 50 MG TABLET PO SCH (21:00)
[2019-09-27] MEDS: oxyCODONE 5 MG TABLET PO PRN ×2 (00:31→04:41)
[2019-09-27] MEDS: HYDROmorphone 0.5 MG/0.5 ML SYRINGE IVP PRN ×3 (00:31→06:31)
[2019-09-27] MEDS: SODIUM CHLORIDE FLUSH 0.9% 10 ML SYRINGE IVP PRN ×2 (00:32→00:33)
[2019-09-27] MEDS: ONDANSETRON 4 MG/2 ML VIAL IVP PRN ×2 (00:32→06:31)
[2019-09-27] MEDS: LORazepam 2 MG/ML VIAL IVP PRN ×2 (03:29→07:35)
[2019-09-27] MEDS: diphenhydrAMINE INJ 50 MG/ML VIAL IVP PRN ×2 (03:30→08:07)
[2019-09-27] MEDS: CEFEPIME 2 GM in SODIUM CHLORIDE 0.9% MINIBAG 100 ML IV SCH (03:42)
[2019-09-27 06:54] LABS: CALCIUM 7.7 mg/dL (8.5-10.3); CREATININE 0.8 mg/dL (0.4-1.0)
[2019-09-27 06:55] LABS: BASOPHILS % (AUTO) 1.2 %; HGB - HEMOGLOBIN 7.6 g/dL (12.0-16.0); LYMPHOCYTES % (AUTO) 18.3 %; MEAN CORPUSCULAR HEMOGLOBIN 30.6 pg (27.0-31.0); MEAN CORPUSCULAR HGB CONC 32.9 g/dL (32.0-36.0); MEAN CORPUSCULAR VOLUME 93.1 fL (81.0-99.0); MEAN PLATELET VOLUME 9.7 fL (7.9-10.8); MONOCYTES % (AUTO) 11.3 %; NEUTROPHILS % (AUTO) 44.2 %; PLT - PLATELET COUNT 146 10^3/uL (130-450); RED BLOOD COUNT 2.48 10^6/uL (4.20-5.40); RED CELL DISTRIBUTION WIDTH 11.6 % (12.0-15.0); WHITE BLOOD COUNT 4.3 x10^3/uL (4.8-10.8)
[2019-09-27 06:59] LABS: ABNORMAL LYMPHS % (MANUAL) 0 %
[2019-09-27] MEDS: PANTOPRAZOLE 40 MG TABLET PO SCH (07:34)
[2019-09-27] MEDS: SODIUM CHLORIDE FLUSH 0.9% 10 ML SYRINGE IVP SCH (07:36)
[2019-09-27 08:04] LABS: BAND NEUTROPHILS % (MANUAL) 7 %; LYMPHOCYTES # (MANUAL) 0.9 10^3/uL (1.5-3.5); LYMPHOCYTES % (MANUAL) 20 %; METAMYELOCYTES % (MANUAL) 12 %; MONOCYTES # (MANUAL) 0.6 10^3/uL (0.0-1.0); MYELOCYTES % (MANUAL) 2 %
[2019-09-27 08:06] LABS: DIFFERENTIAL COMMENT MANUAL DIFFERENTIAL; PLATELET ESTIMATE, MANUAL NORMAL (130-450,000) (NORMAL); PLATELET MORPHOLOGY NORMAL APPEARANCE (NORMAL)
--- NOTE | 2019-09-27 08:31 | DISCHARGE SUMMARY ---
Discharge Summary Admit Date: 09/25/19 Discharge Date: 09/27/19 Discharging Provider: Dr Torito Campbell Primary Care Provider: Luis Kaur Code Status: Attempt Resuscitation Condition at Discharge: Stable Discharge Disposition: 01 Home, Self Care - DIAGNOSES Admission Diagnoses: 1. Neutropenic Fever 2. Breast cancer 3. Chemotherapy induced nausea and vomiting 4. Depression 5. Insomnia Discharge Diagnoses with Status of Each Condition: 1. Neutropenic Fever: Resolved. 2. Breast cancer: Ongoing. On chemotherapy 3. Chemotherapy induced nausea and vomiting. Resolved 4. Depression: Chronic 5. Insomnia: Chronic - HPI History of Present Illness: Patient is a 49 y/o female with Stage II breast cancer diagnosed in June of 2019who presented to the ED today with complain of generalized body ached. She describes it as an intense bone and back pain. She has also been nauseous with episodes of vomiting and diarrhea. Her symptoms started yesterday but got worse today. Her oncologist is Dr Harrell at [place]. She is on chemotherapy every other week and last received chemotherapy on 09/16/2019. She reports feeling dizzy today. She denies chest pain or dyspnea. In the ED she had a temp of 101F and was found to have a WBC of 1 with a neutrophil count of 0.3. As a result of her presentation she is being admitted for further treatment. - HOSPITAL COURSE Hospital Course: Patient was admitted and maintained on vancomycin and cefepime. Her fever resolved, her WBC improved from 1.0 to 4.3 over 3 days. Her absolute neutrophil count improved from not reportable to 2.2. Blood cultures have been no growth to date. She was discharged home with a prescription of levaquin 750mg po daily. She is to follow up with her oncologist Dr Kaur on 09/30/19 as scheduled. Her pain was treated with dilaudid IV and oxycodone. She also received ativan for anxiety. - ALLERGIES Allergies/Adverse Reactions: Allergies Allergy/AdvReac Type Severity Reaction Status Date / Time ketorolac tromethamine * Allergy Edema Verified 09/25/19 16:22 [From Toradol] morphine Allergy Itching Verified 09/25/19 16:22 tramadol AdvReac Itching Verified 09/25/19 16:22 - MEDICATIONS Home Medications: Ambulatory Orders Medication Instructions Recorded Confirmed Duloxetine HCl [Cymbalta] 60 mg PO DAILY 11/17/16 09/26/19 Buprenorphine HCl/Naloxone HCl 1 film SL BID 09/26/19 09/26/19 [Suboxone 8 mg-2 mg Sl Film] D-Amphetamine 30mg Er 1 tab PO DAILY 09/26/19 09/26/19 Trazodone HCl 50 mg PO QPM 09/26/19 09/26/19 lamoTRIgine [Lamictal] 200 mg PO DAILY 09/26/19 09/26/19 Levofloxacin [Levaquin] 750 mg PO DAILYWM #7 tablet 09/27/19 - LABS Result Diagrams: 09/27/19 06:30 09/27/19 06:30 - FOLLOW UP Follow Up: Follow up with oncologist as scheduled on 09/30/19 - TIME SPENT Time Spent in Discharge (Minutes): 31
[2019-09-27 08:40] VITALS: BP 144/92
--- NOTE | 2019-09-27 08:40 | Discharge Plan ---
Discharge Plan Problem Reviewed?: Yes Disposition: Home, Self Care Condition: Stable Prescriptions: Levofloxacin [Levaquin] 750 mg PO DAILYWM #7 tablet Diet: Regular Activity Restrictions: No Restrictions Shower Restrictions: No Driving Restrictions: No Health Concerns: 1. Neutropenic Fever: You came in with a Temp of 101F, a white blood cell count of 1.0 and a neutrophil count of 0.3 You were placed on cefepime and azithromycin and you white blood cell count improved to 4.3 with a neutrophil count of 2.2 You have been prescribe levaquin 750mg tabs. Take 1 tab daily for 7 days 2. Breast cancer: Flow up with your oncologist as planned on 09/30/19 3.Chemotherapy induced nausea and vomiting: Resolved on zofran 4. Depression: Resume your duloxetine and lamotrogine 5. Insomnia: Resume home trazodone Plan of Treatment: 1. Neutropenic Fever: You came in with a Temp of 101F, a white blood cell count of 1.0 and a neutrophil count of 0.3 You were placed on cefepime and azithromycin and you white blood cell count improved to 4.3 with a neutrophil count of 2.2 You have been prescribe levaquin 750mg tabs. Take 1 tab daily for 7 days 2. Breast cancer: Flow up with your oncologist as planned on 09/30/19 3.Chemotherapy induced nausea and vomiting: Resolved on zofran 4. Depression: Resume your duloxetine and lamotrogine 5. Insomnia: Resume home trazodone Care Goals: Follow up with your oncologist Dr Kaur on 09/30/19 as scheduled Assessment: Patient expresses understanding with treatment plan. No Smoking: If you smoke, Please STOP! Call for help. Follow-up with: NUHA KAUR MD [Primary Care Provider] -
[2019-09-27] MEDS ORDERED: D AMPHETAMINE 30 MG PO SCH (09:00)
[2019-09-27] MEDS ORDERED: DULoxetine 30 MG CAPSULE PO SCH (09:00)
[2019-09-27] MEDS ORDERED: lamoTRIgine 100 MG TABLET PO SCH (09:00)
== END 2019-09-27 08:40 | disposition home or self-care (01) | DRG 809 ==
LOC: ED 16:13 → MS2 19:22
PROVIDERS: ADMIT Internal Medicine; ATTEND Internal Medicine
DX: D70.1 Agranulocytosis secondary to cancer chemotherapy (principal); K52.1 Toxic gastroenteritis and colitis; R50.81 Fever presenting with conditions classified elsewhere; F17.200 Nicotine dependence, unspecified, uncomplicated; R11.2 Nausea with vomiting, unspecified; T45.1X5A Adverse effect of antineoplastic and immunosuppressive drugs, initial encounter; Z86.79 Personal history of other diseases of the circulatory system; Y92.009 Unspecified place in unspecified non-institutional (private) residence as the place of occurrence of the external cause; R51 Headache; C50.919 Malignant neoplasm of unspecified site of unspecified female breast; F32.9 Major depressive disorder, single episode, unspecified; F41.9 Anxiety disorder, unspecified; G47.00 Insomnia, unspecified; Z79.899 Other long term (current) drug therapy; Z86.14 Personal history of Methicillin resistant Staphylococcus aureus infection; Z90.49 Acquired absence of other specified parts of digestive tract; Z72.0 Tobacco use; Z95.828 Presence of other vascular implants and grafts
CPT/HCPCS: 36415; 71046; 80048; 80053; 81003; 83605; 83690; 85025; 85610; 87040; 87275; 87276; 87640; 96365; 96375; 99284; 99285; A9270; J1170; J1200; J2060; J3370; 80202; 81001; 87086

== ENCOUNTER 2019-10-06 10:50 | Emergency (ER) | payer OTHER, MEDICARE ==
[2019-10-06 11:01] VITALS: BP 146/82
== END 2019-10-06 11:04 | disposition left against medical advice (07) ==
LOC: ED 10:50
DX: Z53.21 Procedure and treatment not carried out due to patient leaving prior to being seen by health care provider (principal)

== ENCOUNTER 2019-10-07 14:55 | Emergency (ER) | payer OTHER, MEDICARE ==
[2019-10-07 16:34] LABS: BASOPHILS % (AUTO) 2.8 %; LYMPHOCYTES # (AUTO) 0.3 10^3/uL (1.5-3.5); LYMPHOCYTES % (AUTO) 86.1 %; MEAN CORPUSCULAR HEMOGLOBIN 30.7 pg (27.0-31.0); MEAN CORPUSCULAR HGB CONC 33.5 g/dL (32.0-36.0); MEAN CORPUSCULAR VOLUME 91.6 fL (81.0-99.0); MEAN PLATELET VOLUME 9.3 fL (7.9-10.8); MONOCYTES % (AUTO) 8.3 %; NEUTROPHILS % (AUTO) 2.8 %; PLT - PLATELET COUNT 149 10^3/uL (130-450); RED BLOOD COUNT 2.61 10^6/uL (4.20-5.40); RED CELL DISTRIBUTION WIDTH 11.8 % (12.0-15.0)
[2019-10-07] MEDS ORDERED: ONDANSETRON 4 MG/2 ML VIAL IVP STA (16:36)
[2019-10-07] MEDS ORDERED: SODIUM CHLORIDE 0.9% 1,000 ML IV ONE (16:36)
--- NOTE | 2019-10-07 16:37 | ED Physician Documentation ---
History of Present Illness - Stated complaint Stated Complaint: NAUSEA/BODY PX/WEAK - Chief complaint Chief Complaint: Abd Pain - Additonal information Additional information: This is a 49-year-old female with breast cancer who is on chemotherapy, last infusion was on 09/30/[address] Kaur at the [facility], who presents with diffuse weakness, soreness throughout her body, and poor appetite. Patient states that the chemotherapy hit her harder than usual this week, she has not had any fever, but she did note some swelling of her face in the left side yesterday. This is seemed to have resolved. She has some skin irritation underneath her breasts and on her inguinal crease, she has been applying a cream on this and it seems to be improving, it is thought this was due to her chemotherapy by her oncologist. She denies cough or shortness of breath. She does feel somewhat lightheaded and dehydrated. She is been unable to eat anything very substantial for the last week or so because of nausea from chemo. In triage she reportedly was complaining of abdominal pain, on my history she states that she is sore all over her body and achey from the chemo. She has had nausea and loose non bloody stool. 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: Other - Present Medications Home Medications: Ambulatory Orders Medication Instructions Recorded Confirmed Duloxetine HCl [Cymbalta] 60 mg PO DAILY 11/17/16 09/26/19 Buprenorphine HCl/Naloxone HCl 1 film SL BID 09/26/19 09/26/19 [Suboxone 8 mg-2 mg Sl Film] D-Amphetamine 30mg Er 1 tab PO DAILY 09/26/19 09/26/19 Trazodone HCl 50 mg PO QPM 09/26/19 09/26/19 lamoTRIgine [Lamictal] 200 mg PO DAILY 09/26/19 09/26/19 - Allergies Allergies/Adverse Reactions: Allergies Allergy/AdvReac Type Severity Reaction Status Date / Time ketorolac tromethamine * Allergy Edema Verified 10/07/19 15:42 [From Toradol] morphine Allergy Itching Verified 10/07/19 15:42 tramadol AdvReac Itching Verified 10/07/19 15:42 - Social History Does the pt smoke?: Yes Smoking Status: Current every day smoker Does the pt drink ETOH?: No Does the pt have substance abuse?: Yes - Immunizations Immunizations are current?: Yes - POLST Patient has POLST: No POLST Status: Full Code PD ED PE NORMAL - Vitals Vital signs reviewed: Yes - General General: Alert and oriented X 3, No acute distress - HEENT HEENT: Atraumatic, PERRL, Pharynx benign - Neck Neck: Supple, no meningeal sign - Cardiac Cardiac: No murmur, Other (Regular rate on my exam) - Respiratory Respiratory: Clear bilaterally - Abdomen Abdomen: Soft, Non tender, Non distended - Derm Derm: Warm and dry, Other (Mild erythema beneath breasts (chaperoned by RN), no open lesions, no purulence or necrosis) - Extremities Extremities: No deformity - Neuro Neuro: Alert and oriented X 3 - Psych Psych: Normal mood, Normal affect Results - Vitals Vitals: Oxygen O2 Source Room air - Labs Labs: Laboratory Tests 10/07/19 10/07/19 10/07/19 16:15 16:15 16:15 WBC 0.4 L* RBC 2.61 L Hgb 8.0 L Hct 23.9 L MCV 91.6 MCH 30.7 MCHC 33.5 RDW 11.8 L Plt Count 149 MPV 9.3 Neut # (Auto) 0.0 L* Lymph # (Auto) 0.3 L [place] # (Auto) 0.0 Eos # (Auto) 0.0 Baso # (Auto) 0.0 Absolute Nucleated RBC 0.00 Total Counted HR DIRECTOR Band Neuts % (Manual) Not Reportable Abnorm Lymph % (Manual) Not Reportable Nucleated RBC % 0.0 Neutrophils # (Manual) Not Reportable Lymphocytes # (Manual) Not Reportable Monocytes # (Manual) Not Reportable Eosinophils # (Manual) Not Reportable Basophils # (Manual) Not Reportable Differential Comment MANUAL=AUTO DIFF Manual Slide Review Indicated Platelet Estimate NORMAL (130-450,000) Platelet Morphology NORMAL APPEARANCE RBC Morph Micro Appear 1+ MICROCYTOSIS Sodium 137 Potassium 3.8 Chloride 104 Carbon Dioxide 25 Anion Gap 8.0 BUN 11 Creatinine 0.7 Estimated GFR (MDRD) 90 Glucose 98 Lactic Acid Calcium 8.9 Total Bilirubin 0.4 AST 13 ALT 10 Alkaline Phosphatase 63 C-Reactive Protein 2.1 H Total Protein 7.2 Albumin 3.7 Globulin 3.5 Albumin/Globulin Ratio 1.1 Lipase 21 L 10/07/19 18:45 WBC RBC Hgb Hct MCV MCH MCHC RDW Plt Count MPV Neut # (Auto) Lymph # (Auto) [place] # (Auto) Eos # (Auto) Baso # (Auto) Absolute Nucleated RBC Total Counted Band Neuts % (Manual) Abnorm Lymph % (Manual) Nucleated RBC % Neutrophils # (Manual) Lymphocytes # (Manual) Monocytes # (Manual) Eosinophils # (Manual) Basophils # (Manual) Differential Comment Manual Slide Review Platelet Estimate Platelet Morphology RBC Morph Micro Appear Sodium Potassium Chloride Carbon Dioxide Anion Gap BUN Creatinine Estimated GFR (MDRD) Glucose Lactic Acid 0.5 Calcium Total Bilirubin AST ALT Alkaline Phosphatase C-Reactive Protein Total Protein Albumin Globulin Albumin/Globulin Ratio Lipase - Rads (name of study) Chest Radiology: Other (No acute cardiopulmonary abnormality) PD MEDICAL DECISION MAKING - ED course Complexity details: considered differential (Chemotherapy side effect, pneumonia, UTI, gastroenteritis, occult infection ) ED course: On exam patient is tachycardic and mildly dehydrated appearing, has a benign abdomen, is non-toxic. She was given zofran, dilaudid (as she gets itching with morphine), and fluids. She requested IV benadryl, I did give 12.5 mg though she does not have signs of rash. Labs reveal neutropenia, stable anemia, CRP is near normal. Her abdominal exam is benign and I doubt acute abdominal pathology. She has no fever, no cough, no dysuria. She has not have a fever at home. She has a subacute rash that is improving and thought to be secondary from chemo and being followed by her oncologist. Overall she appears to have symptoms from her chemotherapy. I spoke to Dr. Aguirre with her oncology group and reviewed the work up and neutropenia. Dr. Aguirre states that without fever or signs of infection patient appears appropriate for discharge home and they will arrange close outpatient follow up. Pt did not provide a urine sample. I was temporarily delayed by a critically-ill patient who arrived by ambulance and needed immediate resuscitation. Abbi had her port de-accessed and eloped prior to me being able to fully review return precautions. Departure - Departure Disposition: ED [place] Clinical Impression: Dehydration Neutropenia Qualifiers: Neutropenia type: unspecified Qualified Code(s): D70.9 - Neutropenia, unspecified Condition: Good Follow-Up: NUHA KAUR MD [Primary Care Provider] - (Call tomorrow for close follow up within the week) Comments: You appear to be dehydrated today, you do also have neutropenia. I spoke with the oncology group, they do not think that you will benefit from being hospitalized at this time. It is very important that you measure your temperature and if you have any fever you need to return to the emergency department immediately. You should also return if you develop any other concerning symptoms such as abdominal pain, vomiting, shortness of breath. You are at risk for infection, wash your hands and avoid contact with anyone with sick. Discharge Date/Time: 10/07/19 20:44
[2019-10-07 16:45] LABS: ALBUMIN 3.7 g/dL (3.2-5.5); ALBUMIN/GLOBULIN RATIO 1.1 (1.0-2.2); BILIRUBIN,TOTAL 0.4 mg/dL (0.2-1.0); CALCIUM 8.9 mg/dL (8.5-10.3); CREATININE 0.7 mg/dL (0.4-1.0); TOTAL PROTEIN 7.2 g/dL (6.7-8.2)
[2019-10-07 16:46] LABS: WHITE BLOOD COUNT 0.4 x10^3/uL (4.8-10.8)
[2019-10-07] MEDS ORDERED: HYDROmorphone 1 MG/ML CARPUJECT IVP STA (16:50)
[2019-10-07] MEDS ORDERED: diphenhydrAMINE INJ 50 MG/ML VIAL IVP STA ×2 (16:56→19:46)
[2019-10-07 17:01] LABS: DIFFERENTIAL COMMENT MANUAL=AUTO DIFF; PLATELET ESTIMATE, MANUAL NORMAL (130-450,000) (NORMAL); PLATELET MORPHOLOGY NORMAL APPEARANCE (NORMAL)
[2019-10-07] MEDS ORDERED: HYDROmorphone 2 MG/ML VIAL IVP STA (18:28)
--- NOTE | 2019-10-07 19:19 | XRAY Report ---
Reason: Malaise, neutropenia Procedure Date: 10/07/2019 Accession Number: [id number] / [id number] Procedure: XR - Chest 2 View X-Ray CPT Code: 63874 Final Report FULL RESULT: EXAM: CHEST RADIOGRAPHY EXAM DATE: 10/07/2019 06:49 PM. CLINICAL HISTORY: Cough. Malaise, neutropenia. COMPARISON: CHEST 2 VIEW 09/25/2019 6:15 PM. TECHNIQUE: 2 views. FINDINGS: Lungs/Pleura: No focal opacities evident. No pleural effusion. No pneumothorax. Normal volumes. Mediastinum: Heart and mediastinal contours are unremarkable. Other: Left sided [id number]-dhjtsmce is seen terminating in the cavoatrial region. IMPRESSION: No cardiopulmonary abnormality demonstrated. RADIA
[2019-10-07 20:15] VITALS: BP 135/79
== END 2019-10-07 20:44 | disposition left against medical advice (07) ==
LOC: ED 14:55
DX: E86.0 Dehydration (principal); D70.9 Neutropenia, unspecified; C50.919 Malignant neoplasm of unspecified site of unspecified female breast; D64.9 Anemia, unspecified; R21 Rash and other nonspecific skin eruption; I10 Essential (primary) hypertension; F17.200 Nicotine dependence, unspecified, uncomplicated
CPT/HCPCS: 36415; 71046; 80053; 83605; 83690; 85025; 86140; 96361; 96374; 96375; 96376; 99284; J1170; J1200

== ENCOUNTER 2019-12-10 13:38 | Emergency (ER) | payer OTHER, MEDICARE ==
[2019-12-10] MEDS ORDERED: HYDROmorphone 1 MG/ML CARPUJECT IVP STA ×3 (14:24→15:40)
[2019-12-10] MEDS ORDERED: SODIUM CHLORIDE 0.9% 1,000 ML IV ONE (14:24)
[2019-12-10] MEDS ORDERED: ONDANSETRON 4 MG/2 ML VIAL IVP STA (14:24)
[2019-12-10] MEDS ORDERED: diphenhydrAMINE INJ 50 MG/ML VIAL IVP STA (14:24)
--- NOTE | 2019-12-10 14:26 | ED Physician Documentation ---
PD HPI ABD PAIN - Stated complaint Stated Complaint: VOMITING - Chief complaint Chief Complaint: Abd Pain - History obtained from History obtained from: Patient - History of Present Illness Timing - onset: Yesterday (49-year-old woman with breast cancer undergoing chemotherapy. Last infusion was Friday and she is having a worse reaction than normal to her chemotherapy with vomiting and general body pain that started yesterday and is worse today. No changes in bowel movements, although she did not have one today which is a little atypical but not completely out of the ordinary. No fevers. She is feeling weak.) Review of Systems Constitutional: denies: Fever, Chills Cardiac: denies: Chest pain / pressure, Palpitations Respiratory: denies: Dyspnea, Cough GI: reports: Nausea, Vomiting. 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: Other - Present Medications Home Medications: Ambulatory Orders Medication Instructions Recorded Confirmed Duloxetine HCl [Cymbalta] 60 mg PO DAILY 11/17/16 09/26/19 Buprenorphine HCl/Naloxone HCl 1 film SL BID 09/26/19 09/26/19 [Suboxone 8 mg-2 mg Sl Film] D-Amphetamine 30mg Er 1 tab PO DAILY 09/26/19 09/26/19 Trazodone HCl 50 mg PO QPM 09/26/19 09/26/19 lamoTRIgine [Lamictal] 200 mg PO DAILY 09/26/19 09/26/19 Oxycodone HCl/Acetaminophen 1 - 2 each PO Q6H PRN #10 tablet 12/10/19 [Percocet 5-325 mg Tablet] - Allergies Allergies/Adverse Reactions: Allergies Allergy/AdvReac Type Severity Reaction Status Date / Time ketorolac tromethamine * Allergy Edema Verified 12/10/19 13:55 [From Toradol] morphine Allergy Itching Verified 12/10/19 13:55 tramadol AdvReac Itching Verified 12/10/19 13:55 - Social History Does the pt smoke?: No Smoking Status: Former smoker Does the pt drink ETOH?: No Does the pt have substance abuse?: Yes Substance Use and Type: Marijuana - Immunizations Immunizations are current?: No Immunizations: Other immun not current - POLST Patient has POLST: No POLST Status: Full Code PD ED PE NORMAL - Vitals Vital signs reviewed: Yes - General General: Alert and oriented X 3, No acute distress - Neck Neck: Supple, no meningeal sign, No bony TTP - Cardiac Cardiac: No murmur, Other (tachy but regular without murmur) - Respiratory Respiratory: No respiratory distress, Clear bilaterally - Abdomen Abdomen: Other (Multiple well-healed abdominal incisions from a colon resection with wound VAC) - Back Back: No CVA TTP, No spinal TTP - Derm Derm: Normal color, Warm and dry - Extremities Extremities: No edema, No calf tenderness / cord - Neuro Neuro: Alert and oriented X 3, Normal speech Results - Vitals Vitals: Vital Signs - 24 hr 12/10/19 12/10/19 13:51 15:52 Temperature 37.5 C 37.0 C Heart Rate 120 H 88 Respiratory 18 16 Rate Blood Pressure 149/89 H 117/84 H O2 Saturation 97 98 Oxygen O2 Source Room air - Labs Labs: Laboratory Tests 12/10/19 12/10/19 14:38 14:38 WBC 3.1 L RBC 2.40 L Hgb 7.6 L Hct 24.3 L MCV 101.3 H MCH 31.7 H MCHC 31.3 L RDW 15.8 H Plt Count 176 MPV 9.5 Neut # (Auto) 1.8 Lymph # (Auto) 0.6 L [place] # (Auto) 0.4 Eos # (Auto) 0.1 Baso # (Auto) 0.1 Absolute Nucleated RBC 0.00 Band Neuts % (Manual) Not Reportable Abnorm Lymph % (Manual) Not Reportable Nucleated RBC % 0.0 Neutrophils # (Manual) Not Reportable Lymphocytes # (Manual) Not Reportable Monocytes # (Manual) Not Reportable Eosinophils # (Manual) Not Reportable Basophils # (Manual) Not Reportable Differential Comment MANUAL=AUTO DIFF Platelet Estimate NORMAL (130-450,000) Platelet Morphology NORMAL APPEARANCE RBC Morph Micro Appear 2+ HYPOCHROMASIA Sodium 136 Potassium 3.6 Chloride 101 Carbon Dioxide 26 Anion Gap 9.0 BUN 9 Creatinine 0.8 Estimated GFR (MDRD) 77 L Glucose 125 H Calcium 9.3 Total Bilirubin 0.4 AST 22 ALT 20 Alkaline Phosphatase 78 Total Protein 7.4 Albumin 3.7 Globulin 3.7 Albumin/Globulin Ratio 1.0 Lipase 22 PD MEDICAL DECISION MAKING - ED course ED course: 49-year-old woman with chemotherapy related nausea vomiting and bone pain from PEG filgrastim, Treated stepwise with IV fluids, Zofran, and divided doses Dilaudid with excellent relief of her nausea and decent relief of her pain and requesting discharge. Labs are stable with stable pancytopenia from the chemotherapy, metamyelocytes from the PEG filgrastim. Departure - Departure Disposition: Home, Self Care Clinical Impression: Bone pain due to G-CSF, Chemotherapy induced nausea and vomiting Condition: Stable Record reviewed to determine appropriate education?: Yes Instructions: Nausea Vomit Control Prescriptions: Oxycodone HCl/Acetaminophen [Percocet 5-325 mg Tablet] 1 - 2 each PO Q6H PRN #10 tablet PRN Reason: pain Comments: Follow-up with your oncologist as scheduled, return for new or worsening symptoms. Discharge Date/Time: 12/10/19 15:58
[2019-12-10 14:46] LABS: BASOPHILS # (AUTO) 0.1 10^3/uL (0.0-0.1); BASOPHILS % (AUTO) 1.6 %; EOSINOPHILS # (AUTO) 0.1 10^3/uL (0.0-0.7); HGB - HEMOGLOBIN 7.6 g/dL (12.0-16.0); LYMPHOCYTES # (AUTO) 0.6 10^3/uL (1.5-3.5); MEAN CORPUSCULAR HEMOGLOBIN 31.7 pg (27.0-31.0); MEAN CORPUSCULAR HGB CONC 31.3 g/dL (32.0-36.0); MEAN CORPUSCULAR VOLUME 101.3 fL (81.0-99.0); MEAN PLATELET VOLUME 9.5 fL (7.9-10.8); MONOCYTES # (AUTO) 0.4 10^3/uL (0.0-1.0); MONOCYTES % (AUTO) 12.8 %; NEUTROPHILS # (AUTO) 1.8 10^3/uL (1.5-6.6); NEUTROPHILS % (AUTO) 57.3 %; PLT - PLATELET COUNT 176 10^3/uL (130-450); RED CELL DISTRIBUTION WIDTH 15.8 % (12.0-15.0); WHITE BLOOD COUNT 3.1 x10^3/uL (4.8-10.8)
[2019-12-10 14:59] LABS: ALBUMIN 3.7 g/dL (3.2-5.5); BILIRUBIN,TOTAL 0.4 mg/dL (0.2-1.0); CALCIUM 9.3 mg/dL (8.5-10.3); CREATININE 0.8 mg/dL (0.4-1.0); TOTAL PROTEIN 7.4 g/dL (6.7-8.2)
[2019-12-10 15:49] LABS: DIFFERENTIAL COMMENT MANUAL=AUTO DIFF; PLATELET ESTIMATE, MANUAL NORMAL (130-450,000) (NORMAL); PLATELET MORPHOLOGY NORMAL APPEARANCE (NORMAL)
[2019-12-10 15:53] VITALS: BP 117/84
== END 2019-12-10 15:58 | disposition home or self-care (01) ==
LOC: ED 13:38
DX: R11.2 Nausea with vomiting, unspecified (principal); T45.1X5A Adverse effect of antineoplastic and immunosuppressive drugs, initial encounter; M89.8X9 Other specified disorders of bone, unspecified site; T45.8X5A Adverse effect of other primarily systemic and hematological agents, initial encounter; D61.810 Antineoplastic chemotherapy induced pancytopenia; D49.3 Neoplasm of unspecified behavior of breast; I10 Essential (primary) hypertension; Z87.891 Personal history of nicotine dependence
CPT/HCPCS: 36415; 80053; 83690; 85025; 96361; 96374; 96375; 96376; 99283; 99285; J1170; J1200

== ENCOUNTER 2020-04-04 12:24 | Emergency (ER) | payer MEDICAID, MEDICARE ==
--- NOTE | 2020-04-04 13:01 | ED Physician Documentation ---
PD HPI LOWER EXT INJURY - Stated complaint Stated Complaint: R ANKLE INJ - Chief complaint Chief Complaint: Ext Problem - History obtained from History obtained from: Patient - History of Present Illness PD HPI LOW EXT INJURY LOCATION: Right, Ankle Type of injury: Twist (triped over her dog, with inversion injury to ankle. Poorly bearing weight due to pain; mostly hopping.) Where injury occurred: Home Timing - onset: Today Timing - details: Abrupt onset, Still present Improved by: Rest Worsened by: Moving, Palpating Associated symptoms: Swelling. 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 HEENT: None Psych: Anxiety, Other - Past Surgical History Past Surgical History: Yes General: Gastric surgery 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 - Present Medications Home Medications: Ambulatory Orders Medication Instructions Recorded Confirmed Duloxetine HCl [Cymbalta] 60 mg PO DAILY 11/17/16 09/26/19 Buprenorphine HCl/Naloxone HCl 1 film SL BID 09/26/19 09/26/19 [Suboxone 8 mg-2 mg Sl Film] D-Amphetamine 30mg Er 1 tab PO DAILY 09/26/19 09/26/19 Trazodone HCl 50 mg PO QPM 09/26/19 09/26/19 lamoTRIgine [Lamictal] 200 mg PO DAILY 09/26/19 09/26/19 Oxycodone HCl/Acetaminophen 1 - 2 each PO Q6H PRN #10 tablet 12/10/19 [Percocet 5-325 mg Tablet] Hydrocodone/Acetaminophen [[place] 1 each PO Q6H PRN #15 tablet 04/04/20 5-325 Tablet] Naproxen 500 mg PO BID #20 tablet 04/04/20 - Allergies Allergies/Adverse Reactions: Allergies Allergy/AdvReac Type Severity Reaction Status Date / Time ketorolac tromethamine * Allergy Edema Verified 12/10/19 13:55 [From Toradol] morphine Allergy Itching Verified 12/10/19 13:55 tramadol AdvReac Itching Verified 12/10/19 13:55 - Social History Does the pt smoke?: No Smoking Status: Former smoker Does the pt drink ETOH?: No Does the pt have substance abuse?: Yes - Immunizations Immunizations are current?: No Immunizations: Other immun not current - POLST Patient has POLST: No POLST Status: Full Code PD ED PE NORMAL - Vitals Vital signs reviewed: Yes - General General: Alert and oriented X 3, No acute distress, Well developed/nourished - Derm Derm: Normal color, Warm and dry, No rash - Extremities Extremities: Other (right ankle tender with swelling all around it (both medial and lateral). Good color and cap refill in toes, as well as sensation and wiggling toes. Stress testing ligaments too uncomfrtable given the swelling and pain of it. ) - Neuro Neuro: Alert and oriented X 3, No motor deficit, No sensory deficit Results - Vitals Vitals: Vital Signs - 24 hr 04/04/20 04/04/20 12:27 14:14 Temperature 36 C L 37.2 C Heart Rate 94 70 Respiratory 16 16 Rate Blood Pressure 140/95 H 124/83 H O2 Saturation 99 100 Oxygen O2 Source Room air - Rads (name of study) right ankle Radiology: Prelim report reviewed (distal fibular fracture with minimal displa cement. Has medial tenderness too though, with possible slight widening of the mortis, so consider deltoid ligament disruption even though no fractures. ), See rad report Procedures - Splint (location) right ankle Splint applied by: Tech Type of splint: Other (boot orthosis and crutches.) Other: Patient tolerated well, No complications, Neurovascular intact, Crutches provided PD MEDICAL DECISION MAKING - ED course Complexity details: considered differential, d/w patient Departure - Departure Disposition: 01 Home, Self Care Clinical Impression: Fracture of distal end of fibula Qualifiers: Encounter type: initial encounter Fracture type: closed Fracture morphology: unspecified fracture morphology Laterality: right Qualified Code(s): S82.831A - Other fracture of upper and lower end of right fibula, initial encounter for closed fracture Condition: Stable Record reviewed to determine appropriate education?: Yes Instructions: ED Fx Ankle General Follow-Up: Jay Miles MD [Provider Admit Priv/Credential] - Prescriptions: Hydrocodone/Acetaminophen [[place] 5-325 Tablet] 1 each PO Q6H PRN #15 tablet PRN Reason: Pain Naproxen 500 mg PO BID #20 tablet Comments: Keep the splint on for the ankle to protect it and treated as if it is a splint or cast. Use the crutches for nonweightbearing until follow-up for the first week or so. Elevate ice and rest the ankle often over the next few days to reduce swelling. Follow-up with orthopedics in about a week, call today or tomorrow for an appointment. Follow-up at that point is to ensure its healing adequately and if it needs any further treatment or repair. Need to have the ankle fracture at the distal fibula. Concern would be some ligament disruption at the inside part of the ankle and that can be a little bit longer for healing. If not healing well, sometimes the ligaments need repairing. Ibuprofen or naproxen 2-3 times a day for the next week. Add Tylenol or hydrocodone if needed for pain. Discharge Date/Time: 04/04/20 14:15
[2020-04-04] MEDS ORDERED: HYDROcod/ACETAM 5/325 MG TABLET PO STA (13:19)
--- NOTE | 2020-04-04 13:48 | XRAY Report ---
Reason: FALL TWISTING ANKLE YESTERDAY Procedure Date: 04/04/2020 Accession Number: [id number] / [id number] Procedure: XR - Ankle 3 View RT CPT Code: Final Report FULL RESULT: EXAM: RIGHT ANKLE RADIOGRAPHY EXAM DATE: 04/04/2020 12:49 PM. CLINICAL HISTORY: Fall twisting right ankle yesterday. COMPARISON: None. TECHNIQUE: 3 views. FINDINGS: Bones: Minimally displaced oblique distal fibula fracture, extending to the level of the tibial plafond. Tiny avulsion fragment projects between the tip of the lateral malleolus and the talus. Small ill-defined osseous density projecting dorsal to the talar dome on the lateral view. Plantar calcaneal spur. Joints: Borderline medial widening of the ankle mortise. No tibiotalar joint effusion. Soft Tissues: Diffuse soft tissue swelling. IMPRESSION: 1. Minimally displaced oblique Jarvis type B distal fibula fracture. 2. Tiny avulsion fracture fragment projecting between the tip of the lateral malleolus and the talus. 3. Equivocal small avulsion fragment projecting dorsal to the talar dome on the lateral view, uncertain donor site, versus vascular calcification. 4. Borderline widening of the ankle mortise. RADIA
[2020-04-04 14:15] VITALS: BP 124/83
== END 2020-04-04 14:15 | disposition home or self-care (01) ==
LOC: ED 12:24
DX: S82.831A Other fracture of upper and lower end of right fibula, initial encounter for closed fracture (principal); W01.0XXA Fall on same level from slipping, tripping and stumbling without subsequent striking against object, initial encounter; Y92.009 Unspecified place in unspecified non-institutional (private) residence as the place of occurrence of the external cause; I10 Essential (primary) hypertension; Z87.891 Personal history of nicotine dependence
CPT/HCPCS: 29505; 73610; 99283; A9270

== ENCOUNTER 2020-11-23 20:05 | Emergency (ER) | payer MEDICARE ==
[2020-11-23 21:19] LABS: BASOPHILS % (AUTO) 0.2 %; EOSINOPHILS # (AUTO) 0.1 10^3/uL (0.0-0.7); EOSINOPHILS % (AUTO) 2.4 %; HGB - HEMOGLOBIN 12.7 g/dL (12.0-16.0); LYMPHOCYTES # (AUTO) 1.2 10^3/uL (1.5-3.5); LYMPHOCYTES % (AUTO) 28.9 %; MEAN CORPUSCULAR HEMOGLOBIN 31.8 pg (27.0-31.0); MEAN CORPUSCULAR HGB CONC 32.5 g/dL (32.0-36.0); MEAN CORPUSCULAR VOLUME 97.8 fL (81.0-99.0); MEAN PLATELET VOLUME 8.5 fL (7.9-10.8); MONOCYTES # (AUTO) 0.3 10^3/uL (0.0-1.0); MONOCYTES % (AUTO) 7.3 %; NEUTROPHILS # (AUTO) 2.5 10^3/uL (1.5-6.6); PLT - PLATELET COUNT 288 10^3/uL (130-450); RED CELL DISTRIBUTION WIDTH 12.4 % (12.0-15.0); WHITE BLOOD COUNT 4.1 x10^3/uL (4.8-10.8)
[2020-11-23] MEDS ORDERED: HYDROmorphone 1 MG/ML CARPUJECT IVP STA (21:19)
[2020-11-23] MEDS ORDERED: ONDANSETRON 4 MG/2 ML VIAL IVP STA (21:19)
[2020-11-23] MEDS ORDERED: LACTATED RINGERS 1,000 ML IV ONE (21:20)
--- NOTE | 2020-11-23 21:25 | ED Physician Documentation ---
PD HPI ABD PAIN - Stated complaint Stated Complaint: ABD PX - Chief complaint Chief Complaint: Abd Pain - History obtained from History obtained from: Patient - Additional information Additional information: 42-year-old woman with past medical history of stage 3 breast ca s/p chemo, kidney stones, depression, past surgical history of childhood colectomy, multiple lithotripsies for kidney stones, recent bilateral mastectomy, presents with abd pain intermittent X 5 days, gradual onset, aching, generalized but worst in LUQ and radiating to L flank, moderate severity, a/w nbnb n/v and decreased appetite. denies fevers, urinary sx. passing normal flatus. small nonbloody bm this am. Review of Systems Ten Systems: 10 systems reviewed and negative Constitutional: denies: Fever, Chills GI: reports: Abdominal Pain, Nausea, Vomiting : denies: Dysuria PD PAST MEDICAL HISTORY - Past Medical History Past Medical History: Yes Cardiovascular: Hypertension Respiratory: None GI: Hepatitis FILLER FEEDER: Breast cancer : None HEENT: None Psych: Anxiety, Other - Past Surgical History Past Surgical History: Yes General: Gastric surgery Ortho: Other /FILLER FEEDER: Other - Present Medications Home Medications: Ambulatory Orders Medication Instructions Recorded Confirmed Duloxetine HCl [Cymbalta] 60 mg PO DAILY 11/17/16 11/23/20 Buprenorphine HCl/Naloxone HCl 1 film SL BID 09/26/19 11/23/20 [Suboxone 8 mg-2 mg Sl Film] D-Amphetamine 30mg Er 1 tab PO DAILY 09/26/19 11/23/20 Trazodone HCl 50 mg PO QPM 09/26/19 11/23/20 lamoTRIgine [Lamictal] 200 mg PO DAILY 09/26/19 11/23/20 LORazepam [Ativan] 0.5 mg PO DAILY PRN 11/23/20 11/23/20 cloNIDine [Catapres] 0.1 mg PO ONCE 11/23/20 11/23/20 - Allergies Allergies/Adverse Reactions: Allergies Allergy/AdvReac Type Severity Reaction Status Date / Time ketorolac tromethamine * Allergy Edema Verified 11/23/20 20:08 [From Toradol] morphine Allergy Itching Verified 11/23/20 20:08 tramadol AdvReac Itching Verified 11/23/20 20:08 - Social History Does the pt smoke?: No Smoking Status: Never smoker Does the pt drink ETOH?: No Does the pt have substance abuse?: Yes - Immunizations Immunizations are current?: No Immunizations: Other immun not current - POLST Patient has POLST: No POLST Status: Full Code PD ED PE NORMAL - Vitals Vital signs reviewed: Yes - General General: Alert and oriented X 3 - HEENT HEENT: Atraumatic - Neck Neck: Supple, no meningeal sign - Cardiac Cardiac: RRR - Respiratory Respiratory: No respiratory distress, Clear bilaterally - Abdomen Abdomen: Other (diffusely tender to palpation, worst in LUQ. L CVA ttp) - Female Female : Deferred - Rectal Rectal: Deferred - Back Back: Other (L CVA ttp) - Derm Derm: Normal color, Warm and dry - Extremities Extremities: No deformity, Other (BL pitting edema) - Neuro Neuro: Alert and oriented X 3 - Psych Psych: Normal mood, Normal affect Results - Vitals Vitals: Vital Signs - 24 hr 11/23/20 11/23/20 11/23/20 20:08 20:39 21:30 Temperature 36.5 C Heart Rate 95 84 72 Respiratory 16 16 16 Rate Blood Pressure 134/84 H 147/88 H 147/88 H O2 Saturation 100 97 100 11/23/20 11/23/20 11/23/20 22:00 23:05 23:30 Temperature 36.7 C Heart Rate 76 72 75 Respiratory 16 18 18 Rate Blood Pressure 136/79 H 143/72 H 143/72 H O2 Saturation 100 98 98 Oxygen O2 Source Room air - Labs Labs: Laboratory Tests 11/23/20 11/23/20 11/23/20 21:10 21:10 23:25 WBC 4.1 L RBC 4.00 L Hgb 12.7 Hct 39.1 MCV 97.8 MCH 31.8 H MCHC 32.5 RDW 12.4 Plt Count 288 MPV 8.5 Neut # (Auto) 2.5 Lymph # (Auto) 1.2 L [place] # (Auto) 0.3 Eos # (Auto) 0.1 Baso # (Auto) 0.0 Absolute Nucleated RBC 0.00 Nucleated RBC % 0.0 Sodium 140 Potassium 4.2 Chloride 100 L Carbon Dioxide 28 Anion Gap 12.0 BUN 23 H Creatinine 0.9 Estimated GFR (MDRD) 67 L Glucose 100 Calcium 8.9 Total Bilirubin 0.3 AST 18 ALT 14 Alkaline Phosphatase 71 Total Protein 7.0 Albumin 3.8 Globulin 3.2 Albumin/Globulin Ratio 1.2 Lipase 22 Urine Color YELLOW Urine Clarity CLEAR Urine pH 7.0 Ur Specific [place] <=1.005 Urine Protein NEGATIVE Urine Glucose (UA) NEGATIVE Urine Ketones NEGATIVE Urine Occult Blood NEGATIVE Urine Nitrite NEGATIVE Urine Bilirubin NEGATIVE Urine Urobilinogen 0.2 (NORMAL) Ur Leukocyte Esterase NEGATIVE Ur Microscopic Review NOT INDICATED Urine Culture Comments NOT INDICATED Urine HCG, Qual NEGATIVE PD MEDICAL DECISION MAKING - ED course ED course: 50yF with hx kidney stones, multiple abd surgeries, p/w abd pain radiating to flank. will obtain CT to evaluate. 11:45pm - ct demonstrating constipation. also with mild thickening at anastamosis and concern for possible enteritis. given patient is having normal BMs (albeit a bit firm), without any fevers, we will hold antibiotics at this time. extensive education about warning signs for return was provided. patient will follow up with her oncologist who has been acting as her primary. she will also call her plastic parts fabricator trimmer to re-establish care. patient requested pain medication prior to discharge to help her sleep and after discussing the drawbacks of constipation side effect she still requested it. It was discussed that I cannot provide a script but she can start taking miralax/senna for constipation. Departure - Departure Disposition: 01 Home, Self Care Clinical Impression: Constipation Condition: Good Instructions: ED Constipation, Abdominal Pain Comments: You have been seen in the emergency department for abdominal pain. At this time, there does not appear to be an emergent cause for your pain. You do have some constipation on CT. Take senna and MiraLAX for constipation, which you can get [id number]. Eat foods that are high in fiber. Follow-up with your primary doctor and with your oncologist. Return to the ED for any new or worsening symptoms. Forms: Activity restrictions
[2020-11-23] MEDS ORDERED: IOVERSOL 320 100 ML VIAL IVP ONE ×2 (21:34→22:44)
[2020-11-23 21:36] LABS: ALBUMIN 3.8 g/dL (3.2-5.5); ALBUMIN/GLOBULIN RATIO 1.2 (1.0-2.2); BILIRUBIN,TOTAL 0.3 mg/dL (0.2-1.0); CALCIUM 8.9 mg/dL (8.5-10.3); CREATININE 0.9 mg/dL (0.4-1.0)
[2020-11-23] MEDS ORDERED: HYDROmorphone 2 MG/ML VIAL IVP STA ×2 (22:51→23:45)
[2020-11-23 23:36] LABS: BILIRUBIN,URINE NEGATIVE (NEGATIVE); CLARITY,URINE CLEAR (CLEAR); GLUCOSE, URINE (UA) NEGATIVE (NEGATIVE); HCG UR QUAL NEGATIVE; KETONES,URINE (UA) NEGATIVE (NEGATIVE); LEUKOCYTE ESTERASE, URINE NEGATIVE (NEGATIVE); NITRITE,URINE NEGATIVE (NEGATIVE); OCCULT BLOOD,URINE NEGATIVE (NEGATIVE); PROTEIN,URINE NEGATIVE (NEGATIVE); UROBILINOGEN,URINE 0.2 (NORMAL) E.U./dL (NORMAL)
[2020-11-23 23:58] VITALS: BP 122/75
--- NOTE | 2020-11-24 08:49 | CT Report ---
PROCEDURE: Abdomen/Pelvis W INDICATIONS: R sided abd pain radiating to R flank CONTRAST: IV CONTRAST: Optiray 320 ml: 100 PO CONTRAST: *NO PO CONTRAST TECHNIQUE: After the administration of nonionic contrast, 5 mm thick sections acquired from the diaphragms to th e symphysis. 5 mm thick coronal and sagittal reformats were acquired. For radiation dose reduction, the following was used: automated exposure control, adjustment of mA and/or kV according to patient size. COMPARISON: None. FINDINGS: Image quality: Excellent. ABDOMEN: Lung bases: Lung bases are clear. Heart size is normal. Solid organs: Liver and spleen are normal in size and enhancement. Gallbladder has been resected B iliary system is non dilated. Pancreas enhances normally. No adrenal nodules. Kidneys demonstrate normal size and enhancement, without hydronephrosis. Peritoneum and bowel: Bowel loops demonstrate normal wall thickness and caliber. No free fluid or a ir. Generalized colonic obstipation. Nodes and vessels: No retroperitoneal or mesenteric adenopathy by size criteria. Aorta and inferior vena cava are normal in size. Miscellaneous: No ventral hernias. PELVIS: Genitourinary: Bladder wall thickness is normal. Miscellaneous: No inguinal hernias or adenopathy. There is a slight degree of right lower quadrant small bowel mild inflammation, potentially enteritis. Generalized colonic obstipation. Bones: No suspicious bony lesions. No vertebral body compression fractures. IMPRESSION: Generalized colonic obstipation. Questionable finding of mild right lower quadrant small bowel inflammation potentially a manifestation of mild enteritis. Reviewed by: Neftali Wood MD on 11/24/2020 8:47 AM PST Approved by: Neftali Wood MD on 11/24/2020 8:47 AM PST Station ID: [id number]
--- OUTSIDE RECORDS SUMMARY | 2020-11-29 01:22 | EXTERNAL MEDICAL SUMMARY RPT | Continuity of Care Document ---
:1970 Demographics Phone Unavailable Preferred Language Unknown Marital Status Unknown Catholic Affiliation Unknown Race Unknown Ethnic Group Unknown Author Organization [facility] Address [address] [phone] Phone Care Team Providers Name Role Phone KAYLYNN Unavailable Unavailable Yomi Unavailable Unavailable Jeri Unavailable Unavailable Problems date description facility 2016-11-17 13:47 CELLULITIS OF LEFT UPPER LIMB [facility] 2016-11-17 13:47 PAIN IN RIGHT HAND [facility] 2016-11-17 13:47 OTHER SPECIFIED SOFT TISSUE [facility] DISORDERS 2016-11-17 13:47 ELEVATED BLOOD-PRESSURE READING, [facility] W/O DIAGNOSIS OF HTN 2016-11-17 13:47 ABRASION OF LEFT WRIST, INITIAL [facility] ENCOUNTER 2016-11-17 13:47 EXPOSURE TO OTHER SPECIFIED [facility] FACTORS, INITIAL ENCOUNTER 2016-11-24 18:23 OTH VIRAL AGENTS THE CAUSE OF [facility] DISEASES CLASSD [id number] 2016-11-24 18:23 NICOTINE DEPENDENCE, UNSPECIFIED, [facility] UNCOMPLICATED 2016-11-24 18:23 ACUTE UPPER RESPIRATORY INFECTION, i [facility] UNSPECIFIED 2016-11-24 18:23 SHORTNESS OF BREATH [facility] 2016-11-24 18:23 WHEEZING [facility] 2016-11-24 18:23 LEFT UPPER QUADRANT PAIN [facility] 2016-11-24 18:23 NAUSEA WITH VOMITING, UNSPECIFIED [facility] 2016-11-24 18:23 ACQUIRED ABSENCE OF OTHER [facility] SPECIFIED PARTS OF DIGESTIVE TRACT 2017-03-12 20:03 PELVIC AND PERINEAL PAIN [facility] 2017-03-13 14:19 POST-TRAUMATIC OSTEOARTHRITIS, [facility] LEFT WRIST 2017-03-13 14:[address] 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 2017-03-17 18:20 POST-TRAUMATIC OSTEOARTHRITIS, [facility] LEFT WRIST 2017-03-17 18:20 UNSPECIFIED ACQUIRED DEFORMITY OF [facility] LEFT FOREARM 2017-03-17 18:20 SUBLUXATION OF RADIOCARPAL JOINT [facility] OF LEFT WRIST, SEQUELA 2017-03-17 18:20 CARRIER OR SUSPECTED CARRIER OF [facility] METHICILLIN RESIS STAPH 2017-03-17 18:20 PERSONAL HISTORY OF NICOTINE [facility] DEPENDENCE 2017-05-27 17:41 NICOTINE DEPENDENCE, UNSPECIFIED, [facility] UNCOMPLICATED 2017-05-27 17:41 ESSENTIAL (PRIMARY) HYPERTENSION [facility] 2017-05-27 17:41 INFLAMMATORY LIVER DISEASE, [facility] UNSPECIFIED 2017-05-27 17:41 SPRAIN OF UNSPECIFIED LIGAMENT OF [facility] LEFT ANKLE, INIT ENCNTR 2017-05-27 17:41 UNSPECIFIED INJURY OF LEFT ANKLE, [facility] INITIAL ENCOUNTER 2017-05-27 17:[address] STRENUOUS [facility] MOVEMENT OR LOAD, INIT 2017-05-27 17:[address] [facility] 2017-05-27 17:41 BARIATRIC SURGERY STATUS [facility] 2017-08-05 00:07 REACTION TO SEVERE STRESS, [facility] UNSPECIFIED 2017-08-05 00:07 ESSENTIAL (PRIMARY) HYPERTENSION [facility] 2017-08-05 00:07 ALCO[address] GA[address]ITIS WITHOUT [facility] BLEEDING 2017-08-05 00:07 INFLAMMATORY LIVER DISEASE, [facility] UNSPECIFIED 2017-08-05 00:07 NAUSEA [facility] 2017-10-15 05:55 NICOTINE DEPENDENCE, UNSPECIFIED, [facility] UNCOMPLICATED 2017-10-15 05:55 ESSENTIAL (PRIMARY) HYPERTENSION [facility] 2017-10-15 05:55 UNSP OPEN WOUND OF R LITTLE FINGER [facility] W/O DAMAGE TO NAIL, INIT 2017-10-15 05:55 LACERATION WITHOUT FOREIGN BODY OF [facility] RIGHT HAND, INIT ENCNTR 2017-10-15 05:55 CONTACT WITH SHARP [place], INITIAL [facility] ENCOUNTER 2017-10-15 05:[address] IN [facility] NON-[facility] (PRIVATE[facility] RESIDENCE PLACE 2018-01-09 08:00 PERSONAL HISTORY OF OTHER DISEASES [facility] OF THE DIGESTIVE SYSTEM 2018-03-20 00:00 NAUSEA WITH VOMITING, UNSPECIFIED [facility] 2019-02-26 13:03 NICOTINE DEPENDENCE, UNSPECIFIED, [facility] UNCOMPLICATED 2019-02-26 13:03 ESSENTIAL (PRIMARY) HYPERTENSION [facility] 2019-02-26 13:03 PERIUMBILICAL PAIN [facility] 2019-07-15 09:34 UNSPECIFIED LUMP IN THE RIGHT [facility] BREAST, UPPER OUTER QUADRANT 2019-07-16 13:43 MALIG NEOPLM OF UPPER-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 QUADRANT OF RIGHT FEMALE BREAST 2019-07-16 13:43 ESTROGEN RECEPTOR POSITIVE STATUS [facility] [ER+] 2019-09-09 15:58 MALIGNANT NEOPLASM OF UNSP SITE OF [facility] UNSPECIFIED FEMALE BREAST 2019-09-09 15:58 NICOTINE DEPENDENCE, UNSPECIFIED, [facility] UNCOMPLICATED 2019-09-09 15:58 ESSENTIAL (PRIMARY) HYPERTENSION [facility] 2019-09-09 15:58 OTHER SPECIFIED DISORDERS OF BONE, [facility] MULTIPLE SITES 2019-09-09 15:58 NAUSEA WITH VOMITING, UNSPECIFIED [facility] 2019-09-09 15:58 ADVERSE EFFECT OF ANTINEOPLASTIC [facility] AND IMMUNOSUP DRUGS, INIT 2019-09-25 19:22 MALIGNANT NEOPLASM OF UNSP SITE OF [facility] UNSPECIFIED FEMALE BREAST 2019-09-25 19:22 AGRANULOCYTOSIS SECONDARY TO [facility] CANCER CHEMOTHERAPY 2019-09-25 19:22 NICOTINE DEPENDENCE, UNSPECIFIED, [facility] UNCOMPLICATED 2019-09-25 19:22 MAJOR DEPRESSIVE DISORDER, SINGLE [facility] EPISODE, UNSPECIFIED 2019-09-25 19:22 ANXIETY DISORDER, [facility]NSPECIFIED [facility] 2019-09-25 19:22 INSOMNIA, UNSPECIFIED [facility] [place] 2019-09-25 19:22 TOXIC GASTROENTERITIS AND COLITIS [facility] 2019-09-25 19:22 NAUSEA WITH VOMITING, UNSPECIFIED [facility] 2019-09-25 19:22 FEVER PRESENTING WITH CONDITIONS [facility] CLASSIFIED ELSEWHERE 2019-09-25 19:22 HEADACHE [facility] 2019-09-25 19:22 ADVERSE EFFECT OF ANTINEOPLASTIC [facility] AND IMMUNOSUP DRUGS, INIT 2019-09-25 19:[address] [facility] NON-[facility]PR[facility] RESIDENCE PLACE 2019-09-25 19:22 TOBACCO USE [facility] 2019-09-25 19:22 OTHER PLUG ASSEMBLER (CURRENT) DRUG [facility] THERAPY 2019-09-25 19:22 PERSONAL HISTORY OF METHICILLIN [facility] RESIS STAPH INFECTION 2019-09-25 19:22 PERSONAL HISTORY OF OTHER DISEASES [facility] OF THE CIRCULATORY SYSTEM 2019-09-25 19:22 ACQUIRED ABSENCE OF OTHER [facility] SPECIFIED PARTS OF DIGESTIVE TRACT 2019-09-25 19:22 PRESENCE OF OTHER VASCULAR [facility] IMPLANTS AND GRAFTS 2019-10-07 14:55 MALIGNANT NEOPLASM OF UNSP SITE OF [facility] UNSPECIFIED FEMALE BREAST 2019-10-07 14:55 ANEMIA, UNSPECIFIED [facility] 2019-10-07 14:55 NEUTROPENIA, UNSPECIFIED [facility] 2019-10-07 14:55 DEHYDRATION [facility] [place] 2019-10-07 14:55 NICOTINE DEPENDENCE, UNSPECIFIED, [facility] UNCOMPLICATED 2019-10-07 14:55 ESSENTIAL (PRIMARY) HYPERTENSION [facility] 2019-10-07 14:55 RASH AND OTHER NONSPECIFIC SKIN [facility] ERUPTION 2019-10-07 14:55 WEAKNESS [facility] 2019-12-10 13:38 NEOPLASM OF UNSPECIFIED BEHAVIOR [facility] OF BREAST 2019-12-10 13:[address] [facility] INDUCED PANCYTOPENIA 2019-12-10 13:38 ESSENTIAL (PRIMARY) HYPERTENSION [facility] 2019-12-10 13:38 OTHER SPECIFIED DISORDERS OF BONE, [facility] UNSPECIFIED SITE 2019-12-10 13:38 NAUSEA WITH VOMITING, UNSPECIFIED [facility] 2019-12-10 13:38 ADVERSE EFFECT OF ANTINEOPLASTIC [facility] AND IMMUNOSUP DRUGS, INIT 2019-12-10 13:38 ADVERSE EFFECT OF PRIM SYSTEMIC [facility] AND HEMATOLOG AGENTS, INIT 2019-12-10 13:38 PERSONAL HISTORY OF NICOTINE [facility] DEPENDENCE 2020-04-04 12:24 ESSENTIAL (PRIMARY) HYPERTENSION [facility] 2020-04-04 12:24 OTH FRACTURE OF UPPER AND LOWER [facility] END OF RIGHT FIBULA, INIT 2020-04-04 12:24 UNSPECIFIED INJURY OF RIGHT ANKLE, [facility] INITIAL ENCOUNTER 2020-04-04 12:24 FALL SAME LEV FROM SLIP/TRIP W/O [facility] STRIKE AGAINST OBJECT, INIT 2020-04-04 12:[address] IN UNSP NON-[facility] (PR[facility] RESIDENCE PLACE 2020-04-04 12:24 PERSONAL HISTORY OF NICOTINE [facility] DEPENDENCE Allergies date description facility PENICILLINS [facility] NO KNOWN ALLERGIES [facility] SALICYLATES [facility] MELOXICAM [facility] STRAWBERRY [facility] [place] ketorolac tromethamine * [facility] NSAIDS (Non-Steroidal Anti-Inflamma [facility] morphine [facility] tramadol [facility] diclofenac [facility] SALICYLATES [facility] STRAWBERRY [facility] Medications date description facility 2020-08-31 00:00:00 24 HR Amphetamine aspartate 7.5 MG / [facility] Amphetamine Sulfate 7.5 MG / Dextroamphetamine saccharate 7.5 MG / Dextroamphetamine Sulfate 7.5 MG Extende d Release Capsule Results Social History date description facility [id number]
== END 2020-11-24 00:01 | disposition home or self-care (01) ==
LOC: ED 20:05
DX: K59.00 Constipation, unspecified (principal); I10 Essential (primary) hypertension; Z08 Encounter for follow-up examination after completed treatment for malignant neoplasm; Z85.3 Personal history of malignant neoplasm of breast; Z87.442 Personal history of urinary calculi
CPT/HCPCS: 74177; 80053; 81003; 81025; 83690; 85025; 96361; 96374; 96375; 96376; 99284; J1170; J7120; Q9967; 81001; 87086

== ENCOUNTER 2021-01-30 14:46 | Outpatient (CLI) | payer MEDICARE, MEDICAID ==
--- NOTE | 2021-01-30 16:49 | XRAY Report ---
PROCEDURE: Thoracic Spine 3 View INDICATIONS: THORACIC PX TECHNIQUE: 3 views of the thoracic spine were acquired. COMPARISON: None. FINDINGS: Bones: No fractures or dislocations. No suspicious bony lesions. 12 pairs of ribs are noted, and a ppear intact where visualized. Age-appropriate degenerative changes of the thoracic spine. Findings are most pronounced in the mid and lower thoracic spine. No acute compression fractures. Soft tissues: No paravertebral stripe thickening. IMPRESSION: Thoracic spine without acute fracture or malalignment. Age-appropriate spondylitic changes of the mid and lower thoracic spine. Reviewed by: Rolf Reed MD on 01/30/2021 4:48 PM PDT Approved by: Rolf Reed MD on 01/30/2021 4:48 PM PDT Station ID: [id number]
== END 2021-01-30 23:59 | disposition home or self-care (01) ==
LOC: DI.N 14:46
PROVIDERS: ATTEND Physician Assistant Medical
DX: M54.6 Pain in thoracic spine (principal); M47.814 Spondylosis without myelopathy or radiculopathy, thoracic region

== ENCOUNTER 2021-03-24 15:17 | Outpatient (CLI) | payer MEDICARE ==
--- NOTE | 2021-03-24 15:43 | XRAY Report ---
PROCEDURE: Ankle 3 View LT INDICATIONS: LEFT ANKLE PAIN TECHNIQUE: 3 views of the ankle were acquired. COMPARISON: 05/27/2017 FINDINGS: Bones: No fractures or dislocations. Ankle mortise is normally aligned. No suspicious bony lesions . The talar dome demonstrates an unremarkable appearance. Age-appropriate degenerative changes are seen. A plantar calcaneal spur is incidentally noted. Soft tissues: Soft tissue swelling is seen, primarily laterally. IMPRESSION: Soft tissue swelling is seen, yet without a brenda, acute abnormality identified. If it would be helpful for clinical management decision making, please consider a dedicated, schedule d ankle MRI for further evaluation (assuming that there is no contraindication). Reviewed by: Viral Schofield MD on 03/24/2021 2:42 PM [place] Approved by: Viral Schofield MD on 03/24/2021 2:42 PM [place] Station ID: [id number]
== END 2021-03-24 15:18 | disposition home or self-care (01) ==
LOC: DI.N 15:17
PROVIDERS: ATTEND Family Medicine
DX: M25.572 Pain in left ankle and joints of left foot (principal); R22.42 Localized swelling, mass and lump, left lower limb

== ENCOUNTER 2021-04-05 18:57 | Outpatient (CLI) | payer MEDICARE, MEDICAID ==
--- NOTE | 2021-04-06 17:18 | XRAY Report ---
PROCEDURE: Abdomen Acute INDICATIONS: ABDOMINAL PAIN TECHNIQUE: One view chest and two views of the abdomen were acquired. COMPARISON: CT abdomen pelvis 11/24/2016 FINDINGS: Surgical changes and devices: Cholecystectomy clips. Chest: Lungs are clear. Heart size is normal. No pleural effusions. No pneumoperitoneum. Abdomen: Bowel gas pattern is normal. No suspicious calcifications. Liver shadow appears prominent. Bones: No suspicious bony lesions. IMPRESSION: No obstruction or free air. Reviewed by: Brina Sauceda MD on 04/06/2021 5:16 PM PDT Approved by: Brina Sauceda MD on 04/06/2021 5:16 PM PDT Station ID: [id number]
== END 2021-04-05 23:59 | disposition home or self-care (01) ==
LOC: DI.N 18:57
PROVIDERS: ATTEND Family Medicine
DX: R10.9 Unspecified abdominal pain (principal); R53.83 Other fatigue; Z20.822 Contact with and (suspected) exposure to COVID-19
CPT/HCPCS: 74022; U0004

== ENCOUNTER 2021-05-19 17:25 | Emergency (ER) | payer MEDICARE, MEDICAID ==
[2021-05-19 17:52] VITALS: BP 138/88
--- NOTE | 2021-05-19 18:22 | ED Physician Documentation ---
PD HPI URI - Stated complaint Stated Complaint: LOSS OF SMELL/TASTE/HOT/ACHEY - Chief complaint Chief Complaint: Resp - History obtained from History obtained from: Patient - History of Present Illness Timing - onset: How many days ago (2) Timing duration: Days (2) Timing details: Abrupt onset, Still present Associated symptoms: Chills, Nasal congestion, Dry cough, Dyspnea. No: Sore throat, NVD Contributing factors: Unimmunized. No: Sick contact, Travel, COPD / asthma Similar symptoms before: Has not had sx before Recently seen: Not recently seen (she is post breast cancer treatment but no chemo for a year.) Review of Systems Constitutional: reports: Chills, Myalgias, Fatigue Nose: reports: Congestion Throat: denies: Sore throat Respiratory: reports: Cough GI: reports: Nausea. denies: Vomiting, Diarrhea Skin: denies: Rash Neurologic: reports: Generalized weakness. denies: Near syncope PD PAST MEDICAL HISTORY - Past Medical History Cardiovascular: Hypertension Respiratory: None GI: Hepatitis PROFESSIONAL MODEL: Breast cancer : None HEENT: None Psych: Anxiety, Other - Past Surgical History Past Surgical History: Yes General: Gastric surgery Ortho: Other /PROFESSIONAL MODEL: Other - Present Medications Home Medications: Ambulatory Orders Medication Instructions Recorded Confirmed Duloxetine HCl [Cymbalta] 60 mg PO DAILY 11/17/16 11/23/20 Buprenorphine HCl/Naloxone HCl 1 film SL BID 09/26/19 11/23/20 [Suboxone 8 mg-2 mg Sl Film] D-Amphetamine 30mg Er 1 tab PO DAILY 09/26/19 11/23/20 Trazodone HCl 50 mg PO QPM 09/26/19 11/23/20 lamoTRIgine [Lamictal] 200 mg PO DAILY 09/26/19 11/23/20 LORazepam [Ativan] 0.5 mg PO DAILY PRN 11/23/20 11/23/20 cloNIDine [Catapres] 0.1 mg PO ONCE 11/23/20 11/23/20 - Allergies Allergies/Adverse Reactions: Allergies Allergy/AdvReac Type Severity Reaction Status Date / Time ketorolac tromethamine * Allergy Edema Verified 05/19/21 17:52 [From Toradol] morphine Allergy Itching Verified 05/19/21 17:52 tramadol AdvReac Itching Verified 05/19/21 17:52 - Social History Does the pt smoke?: No Smoking Status: Never smoker Does the pt drink ETOH?: No Does the pt have substance abuse?: Yes - Immunizations Immunizations are current?: No Immunizations: Other immun not current - POLST Patient has POLST: No POLST Status: Full Code PD ED PE NORMAL - Vitals Vital signs reviewed: Yes - General General: Alert and oriented X 3, No acute distress, Well developed/nourished - HEENT HEENT: Ears normal, Moist mucous membranes, Pharynx benign - Neck Neck: Supple, no meningeal sign, No adenopathy - Cardiac Cardiac: RRR, No murmur - Respiratory Respiratory: Clear bilaterally - Abdomen Abdomen: Soft, Non tender - Back Back: No CVA TTP - Derm Derm: Normal color, Warm and dry - Extremities Extremities: No edema, No calf tenderness / cord - Neuro Neuro: Alert and oriented X 3, No motor deficit, Normal speech Results - Vitals Vitals: Oxygen O2 Source Room air - Labs Labs: Laboratory Tests 05/19/21 19:05 Coronavirus (PCR) NEGATIVE PD MEDICAL DECISION MAKING - ED course Complexity details: considered differential (she is concerned about COVID in particular.), d/w patient Departure - Departure Disposition: 01 Home, Self Care Condition: Stable Record reviewed to determine appropriate education?: Yes Instructions: ED Upper Resp Infec No Abx Tx Comments: Stay well hydrated. Tylenol or Ibuprofen as needed. The COVID test should result tomorrow. Use the Patient Portal for results or we will call if positive. Discharge Date/Time: 05/19/21 19:41
== END 2021-05-19 19:41 | disposition home or self-care (01) ==
LOC: ED 17:25
DX: I10 Essential (primary) hypertension (principal); B34.9 Viral infection, unspecified; Z20.822 Contact with and (suspected) exposure to COVID-19
CPT/HCPCS: 99283; U0004

== ENCOUNTER 2021-05-23 11:08 | Emergency (ER) | payer MEDICARE, MEDICAID ==
[2021-05-23 11:15] VITALS: BP 154/104
== END 2021-05-23 12:55 | disposition left against medical advice (07) ==
LOC: ED 11:08
DX: Z53.21 Procedure and treatment not carried out due to patient leaving prior to being seen by health care provider (principal)

== ENCOUNTER 2021-05-24 14:31 | Outpatient (CLI) | payer MEDICARE, MEDICAID | END 2021-05-24 23:59 | disposition home or self-care (01) | LOC: LAB.N 14:31 | PROVIDERS: ATTEND Family Medicine | DX: R05 Cough (principal); J02.9 Acute pharyngitis, unspecified; Z20.822 Contact with and (suspected) exposure to COVID-19 | CPT/HCPCS: 87070; U0004 ==

== ENCOUNTER 2021-05-24 14:36 | Outpatient (CLI) | payer MEDICARE, MEDICAID ==
--- NOTE | 2021-05-24 17:17 | XRAY Report ---
PROCEDURE: Chest 2 View X-Ray INDICATIONS: PRODUCTIVE COUGH TECHNIQUE: 2 view(s) of the chest. COMPARISON: None. FINDINGS: Surgical changes and devices: None. Lungs and pleura: No pleural effusions or pneumothorax. Lungs are clear. Mediastinum: Mediastinal contours are normal. Heart size is normal. Bones and chest wall: No suspicious bony abnormalities. Soft tissues appear unremarkable. IMPRESSION: Normal for age, source of current symptoms is not seen. Reviewed by: Neftali Wood MD on 05/24/2021 5:16 PM PDT Approved by: Neftali Wood MD on 05/24/2021 5:16 PM PDT Station ID: [id number]
== END 2021-05-24 23:59 | disposition home or self-care (01) ==
LOC: DI.N 14:36
PROVIDERS: ATTEND Family Medicine
DX: R05 Cough (principal); J02.9 Acute pharyngitis, unspecified; Z20.822 Contact with and (suspected) exposure to COVID-19
CPT/HCPCS: 71046; 87070; U0004

== ENCOUNTER 2021-08-14 12:08 | Emergency (ER) | payer MEDICARE, MEDICAID ==
[2021-08-14] MEDS ORDERED: SODIUM CHLORIDE 0.9% 1,000 ML IV STA (14:25)
[2021-08-14] MEDS ORDERED: HYDROmorphone 1 MG/ML CARPUJECT IVP STA ×3 (14:25→16:40)
[2021-08-14] MEDS ORDERED: ONDANSETRON 4 MG/2 ML VIAL IVP STA (14:25)
--- NOTE | 2021-08-14 14:26 | ED Physician Documentation ---
PD HPI ABD PAIN - Stated complaint Stated Complaint: ABD PX - Chief complaint Chief Complaint: Abd Pain - History obtained from History obtained from: Patient - Additional information Additional information: 51-year-old woman with history of breast cancer and multiple abdominal surgeries presents with severe left-sided abdominal pain. It started 3 weeks ago but has become much more severe over the last 2 to 3 days. It radiates to the left flank. It is associated with very mild nausea. Bowel movements have been normal. She has a history of kidney stones but this does not feel like this. Other than multiple mesh repairs she is also had all but 17 inches of her colon removed. The history of why she needed that is a little bit tenuous as she states that it was due to narcotic use. 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 : None HEENT: None Psych: Anxiety, Other - Past Surgical History Past Surgical History: Yes General: Gastric surgery Ortho: Other /SAL[employer] W[employer]SE [employer]IVER: Other - Present Medications Home Medications: Ambulatory Orders Medication Instructions Recorded Confirmed Duloxetine HCl [Cymbalta] 60 mg PO DAILY 11/17/16 11/23/20 Buprenorphine HCl/Naloxone HCl 1 film SL BID 09/26/19 11/23/20 [Suboxone 8 mg-2 mg Sl Film] D-Amphetamine 30mg Er 1 tab PO DAILY 09/26/19 11/23/20 Trazodone HCl 50 mg PO QPM 09/26/19 11/23/20 lamoTRIgine [Lamictal] 200 mg PO DAILY 09/26/19 11/23/20 LORazepam [Ativan] 0.5 mg PO DAILY PRN 11/23/20 11/23/20 cloNIDine [Catapres] 0.1 mg PO ONCE 11/23/20 11/23/20 - Allergies Allergies/Adverse Reactions: Allergies Allergy/AdvReac Type Severity Reaction Status Date / Time ketorolac tromethamine * Allergy Edema Verified 05/23/21 11:16 [From Toradol] morphine Allergy Itching Verified 05/23/21 11:16 lorazepam [From Ativan] AdvReac Dizziness Verified 08/14/21 12:25 tramadol AdvReac Itching Verified 05/23/21 11:16 - Social History Does the pt smoke?: No Smoking Status: Never smoker Does the pt drink ETOH?: No Does the pt have substance abuse?: Yes - Immunizations Immunizations are current?: No Immunizations: Other immun not current - POLST Patient has POLST: No POLST Status: Full Code PD ED PE NORMAL - Vitals Vital signs reviewed: Yes - General General: Alert and oriented X 3, Other (Appears stoic but uncomfortable) - HEENT HEENT: PERRL, EOMI - Neck Neck: Supple, no meningeal sign, No bony TTP - Cardiac Cardiac: RRR, No murmur - Respiratory Respiratory: No respiratory distress, Clear bilaterally - Abdomen Abdomen: Other (Modest left-sided abdominal tenderness without surgical signs, multiple scars from surgeries and previous wound vacs.) - Back Back: No CVA TTP, No spinal TTP - Derm Derm: Normal color, Warm and dry - Extremities Extremities: No edema, No calf tenderness / cord - Neuro Neuro: Alert and oriented X 3, Normal speech Results - Vitals Vitals: Vital Signs - 24 hr 08/14/21 08/14/21 08/14/21 12:22 14:17 15:47 Temperature 36.3 C L 37.3 C Heart Rate 88 74 70 Respiratory 15 18 22 Rate Blood Pressure 146/84 H 174/100 H 153/106 H O2 Saturation 100 100 98 08/14/21 16:24 Temperature 36.5 C Heart Rate 79 Respiratory 16 Rate Blood Pressure 154/104 H O2 Saturation 100 Oxygen O2 Source Room air - Labs Labs: Laboratory Tests 08/14/21 08/14/21 08/14/21 13:45 14:25 14:25 WBC 4.9 RBC 3.80 L Hgb 11.7 L Hct 36.1 L MCV 95.0 MCH 30.8 MCHC 32.4 RDW 12.6 Plt Count 269 MPV 8.8 Neut # (Auto) 3.0 Lymph # (Auto) 1.3 L Titus # (Auto) 0.4 Eos # (Auto) 0.0 Baso # (Auto) 0.0 Absolute Nucleated RBC 0.00 Nucleated RBC % 0.0 Sodium 136 Potassium 4.4 Chloride 98 L Carbon Dioxide 29 Anion Gap 9.0 BUN 25 H Creatinine 1.0 Estimated GFR (MDRD) 59 L Glucose 92 Calcium 9.1 Total Bilirubin 0.7 AST 19 ALT 17 Alkaline Phosphatase 47 Total Protein 7.3 Albumin 4.1 Globulin 3.2 Albumin/Globulin Ratio 1.3 Lipase 43 Urine Color YELLOW Urine Clarity CLEAR Urine pH 8.0 H Ur Specific Butler 1.015 Urine Protein NEGATIVE Urine Glucose (UA) NEGATIVE Urine Ketones NEGATIVE Urine Occult Blood NEGATIVE Urine Nitrite NEGATIVE Urine Bilirubin NEGATIVE Urine Urobilinogen 0.2 (NORMAL) Ur Leukocyte Esterase NEGATIVE Ur Microscopic Review NOT INDICATED Urine Culture Comments NOT INDICATED Procedures - General procedure General procedure: She was difficult for IV access, the nursing tried and failed. I was able to access a vein with a long 22-gauge IV in the left antecubital fossa using real- time ultrasound guidance which flushed and cindi well. PD MEDICAL DECISION MAKING - ED course ED course: 51-year-old woman with multiple abdominal surgeries presents with left-sided abdominal pain. CT to my eye most consistent with constipation. Radiologist noted a new left-sided ventral hernia without inflammatory changes. This was specifically evaluated after the CT and not tender. She was given an enema and magnesium citrate. Departure - Departure Disposition: 01 Home, Self Care Clinical Impression: Constipation Qualifiers: Constipation type: unspecified constipation type Qualified Code(s): K59.00 - Constipation, unspecified Abdominal pain Qualifiers: Abdominal location: generalized Qualified Code(s): R10.84 - Generalized abdominal pain Condition: Good Record reviewed to determine appropriate education?: Yes Instructions: ED Constipation Comments: Hopefully between the magnesium citrate and enema you will feel much better. Return if worsening or if not better overnight. Follow-up with your primary care physician regardless. Forms: Activity restrictions
[2021-08-14] MEDS ORDERED: IOVERSOL 320 100 ML VIAL IVP ONE ×2 (14:32→20:45)
[2021-08-14] MEDS ORDERED: IOVERSOL 320 50 ML VIAL ONE (14:33)
[2021-08-14 14:34] LABS: BASOPHILS % (AUTO) 0.4 %; EOSINOPHILS % (AUTO) 0.8 %; HCT - HEMATOCRIT 36.1 % (37.0-47.0); HGB - HEMOGLOBIN 11.7 g/dL (12.0-16.0); LYMPHOCYTES # (AUTO) 1.3 10^3/uL (1.5-3.5); LYMPHOCYTES % (AUTO) 27.4 %; MEAN CORPUSCULAR HEMOGLOBIN 30.8 pg (27.0-31.0); MEAN CORPUSCULAR HGB CONC 32.4 g/dL (32.0-36.0); MEAN PLATELET VOLUME 8.8 fL (7.9-10.8); MONOCYTES # (AUTO) 0.4 10^3/uL (0.0-1.0); MONOCYTES % (AUTO) 8.6 %; NEUTROPHILS % (AUTO) 62.6 %; PLT - PLATELET COUNT 269 10^3/uL (130-450); RED CELL DISTRIBUTION WIDTH 12.6 % (12.0-15.0); WHITE BLOOD COUNT 4.9 x10^3/uL (4.8-10.8)
[2021-08-14 14:39] LABS: BILIRUBIN,URINE NEGATIVE (NEGATIVE); CLARITY,URINE CLEAR (CLEAR); GLUCOSE, URINE (UA) NEGATIVE (NEGATIVE); KETONES,URINE (UA) NEGATIVE (NEGATIVE); LEUKOCYTE ESTERASE, URINE NEGATIVE (NEGATIVE); NITRITE,URINE NEGATIVE (NEGATIVE); OCCULT BLOOD,URINE NEGATIVE (NEGATIVE); PROTEIN,URINE NEGATIVE (NEGATIVE); UROBILINOGEN,URINE 0.2 (NORMAL) E.U./dL (NORMAL)
[2021-08-14 14:46] LABS: ALBUMIN 4.1 g/dL (3.2-5.5); ALBUMIN/GLOBULIN RATIO 1.3 (1.0-2.2); BILIRUBIN,TOTAL 0.7 mg/dL (0.2-1.0); CALCIUM 9.1 mg/dL (8.5-10.3); POTASSIUM 4.4 mmol/L (3.5-5.0); TOTAL PROTEIN 7.3 g/dL (6.7-8.2)
[2021-08-14 16:26] VITALS: BP 154/104
--- NOTE | 2021-08-14 17:00 | CT Report ---
PROCEDURE: Abdomen/Pelvis W INDICATIONS: iv and po, l side abd pain CONTRAST: IV CONTRAST: Optiray 320 ml: 100 PO CONTRAST: *NO PO CONTRAST TECHNIQUE: After the administration of weight appropriate dose of intravenous contrast, 5 mm thick sections acqu ired from the diaphragms to the symphysis. 5 mm thick coronal and sagittal reformats were acquired. For radiation dose reduction, the following was used: automated exposure control, adjustment of mA and/or kV according to patient size. Oral contrast was also administered. COMPARISON: 11/23/2020. FINDINGS: Image quality: Slightly degraded by motion artifact. ABDOMEN: Lung bases: Lung bases are clear. Heart size is normal. Partially imaged breast implants. Solid organs: Liver and spleen are normal in size and enhancement. Gallbladder surgically absent. Biliary system is non dilated. Pancreas enhances normally. No adrenal nodules. Kidneys demonstrate normal size and enhancement, without hydronephrosis. Bilateral ureters are normal in course and veronica iber. Peritoneum and bowel: Stable postsurgical changes from prior partial colectomy. Bowel loops demonstr ate normal wall thickness and caliber. No free fluid or air. Moderate amount of fecal material is n oted in the distal colon. Nodes and vessels: No retroperitoneal or mesenteric adenopathy by size criteria. Aorta and inferior vena cava are normal in size. Miscellaneous: Stable postsurgical changes involving the ventral abdomen. Interval development of sma ll left upper abdominal wall ventral hernia containing a short segment of small bowel. There is no as sociated inflammatory changes. No obstruction proximally. Oral contrast is seen both distal and proxi mal to the site of hernia. The hernia measures approximately 1.6 cm in diameter. This is noted over the superior, left margin of the prior surgical site. No associated inflammatory changes. PELVIS: Genitourinary: Bladder wall thickness is normal. Miscellaneous: No inguinal hernias or adenopathy. Bones: No suspicious bony lesions. No acute vertebral body compression fractures. Multilevel spondy litic changes seen throughout the imaged spine. IMPRESSION: 1. Stable postsurgical changes from prior partial colectomy with associated postsurgical changes of t he ventral abdomen. There is a new left-sided ventral hernia containing short segment of small bowel noted near the upper margins of prior surgical changes. No evidence for acute inflammatory changes or obstruction proximally. Recommend correlation with visible examination for site of patient's pain. 2. Status post cholecystectomy. 3. Moderate amount of fecal material seen in the distal colon. 4. Multilevel spondylosis. Reviewed by: Rolf Reed MD on 08/14/2021 4:58 PM PDT Approved by: Rolf Reed MD on 08/14/2021 4:58 PM PDT Station ID: [id number]
[2021-08-14] MEDS ORDERED: MAGNESIUM CITRATE 296 ML BOTTLE PO STA (17:05)
[2021-08-14] MEDS ORDERED: IOVERSOL 320 50 ML VIAL PO ONE (20:45)
== END 2021-08-14 17:13 | disposition home or self-care (01) ==
LOC: ED 12:08
DX: K59.00 Constipation, unspecified (principal); R10.84 Generalized abdominal pain; K43.9 Ventral hernia without obstruction or gangrene; Z90.49 Acquired absence of other specified parts of digestive tract; I10 Essential (primary) hypertension; Z85.3 Personal history of malignant neoplasm of breast
CPT/HCPCS: 36415; 74177; 80053; 81003; 83690; 85025; 96361; 96374; 96375; 96376; 99284; A9270; J1170; Q9967; 81001; 87086

== ENCOUNTER 2021-10-02 07:00 | Outpatient (CLI) | payer MEDICARE, MEDICAID ==
--- NOTE | 2021-10-02 15:41 | XRAY Report ---
PROCEDURE: Left ankle, x-ray INDICATIONS: Pain TECHNIQUE: 2 views of the ankle were acquired. COMPARISON: March 24, 2021 FINDINGS: Bones: No fractures or dislocations. Ankle mortise is normally aligned. No suspicious bony lesions . Soft tissues: No tibiotalar joint effusion. Achilles tendon appears normal. Generalized soft tissu e swelling noted. No radiopaque foreign body. IMPRESSION: Soft tissue swelling without fracture or foreign body Reviewed by: Jr Chopra MD on 10/02/2021 2:06 PM [facility] Approved by: Jr Chopra MD on 10/02/2021 2:06 PM [place] Station ID: [id number]
== END 2021-10-02 23:59 | disposition home or self-care (01) ==
LOC: DI.N 07:00
PROVIDERS: ATTEND Family Medicine
DX: M25.572 Pain in left ankle and joints of left foot (principal); R93.6 Abnormal findings on diagnostic imaging of limbs; R93.89 Abnormal findings on diagnostic imaging of other specified body structures

== ENCOUNTER 2021-11-07 16:00 | Outpatient (CLI) | payer MEDICARE ==
--- NOTE | 2021-11-07 16:25 | XRAY Report ---
PROCEDURE: Hand 3 View RT INDICATIONS: SPRAIN OF R WRIST AND HAND TECHNIQUE: 3 views of the hand(s) acquired. COMPARISON: None FINDINGS: Bones: No fractures or dislocations. No suspicious bony lesions. Severe joint space narrowing and periarticular osteophyte formation at the first metacarpophalangeal joint. Moderate subluxation at th e first metacarpal phalangeal joint. Soft tissues: No suspicious soft tissue calcifications. IMPRESSION: 1. 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 2. No acute fracture. No osseous lesion. If symptoms and/or clinical suspicion for pathology continue , further assessment with repeat plain films, or advanced imaging (e.g., CT, MRI, or bone scan) is re commended for further assessment. Reviewed by: Poncho Solano MD on 11/07/2021 4:23 PM PST Approved by: Poncho Solano MD on 11/07/2021 4:23 PM PST Station ID: [id number]
== END 2021-11-07 23:59 | disposition home or self-care (01) ==
LOC: DI.N 16:00
PROVIDERS: ATTEND Family Medicine
DX: M19.041 Primary osteoarthritis, right hand (principal)

== ENCOUNTER 2021-12-01 12:40 | Emergency (ER) | payer MEDICARE ==
--- NOTE | 2021-12-01 12:56 | ED Physician Documentation ---
PD HPI LOWER EXT INJURY - Stated complaint Stated Complaint: LT LEG INJ - Chief complaint Chief Complaint: Trauma Ext - History obtained from History obtained from: Patient - History of Present Illness PD HPI LOW EXT INJURY LOCATION: Left, Lower leg, Ankle Type of injury: Twist (she states she felt dizzy when standing up last night and felt off balance, causing left ankle to twist. Fell but did not strike head. Pain and swelling lateral ankle.) Where injury occurred: Home Timing - onset: Last night Timing - details: Abrupt onset, Still present Worsened by: Moving, Other (walking) Associated symptoms: Swelling. 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 HEENT: None Psych: Anxiety, Other - Past Surgical History Past Surgical History: Yes General: Gastric surgery 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: 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: Other - Present Medications Home Medications: Ambulatory Orders Medication Instructions Recorded Confirmed Duloxetine HCl [Cymbalta] 60 mg PO DAILY 11/17/16 12/01/21 Buprenorphine HCl/Naloxone HCl 1 film SL BID 09/26/19 12/01/21 [Suboxone 8 mg-2 mg Sl Film] Trazodone HCl 50 mg PO QPM 09/26/19 12/01/21 lamoTRIgine [Lamictal] 200 mg PO DAILY 09/26/19 12/01/21 cloNIDine [Catapres] 0.1 mg PO ONCE PRN 11/23/20 12/01/21 Alprazolam [Xanax] 1 mg PO DAILY PRN 12/01/21 12/01/21 - Allergies Allergies/Adverse Reactions: Allergies Allergy/AdvReac Type Severity Reaction Status Date / Time ketorolac tromethamine * Allergy Edema Verified 12/01/21 12:54 [From Toradol] morphine Allergy Itching Verified 12/01/21 12:54 lorazepam [From Ativan] AdvReac Dizziness Verified 12/01/21 12:54 tramadol AdvReac Itching Verified 12/01/21 12:54 - Social History Does the pt smoke?: No Smoking Status: Former smoker Does the pt drink ETOH?: No Does the pt have substance abuse?: Yes - Immunizations Immunizations are current?: No Immunizations: Other immun not current - POLST Patient has POLST: No POLST Status: Full Code PD ED PE NORMAL - Vitals Vital signs reviewed: Yes - General General: Alert and oriented X 3, No acute distress, Well developed/nourished - HEENT HEENT: PERRL, EOMI (no nystagmus), Ears normal, Moist mucous membranes, Pharynx benign - Neck Neck: Supple, no meningeal sign, No adenopathy - Derm Derm: Normal color, Warm and dry - Extremities Extremities: Other (left ankle with lateral swelling and effusion. Pain with inversion. No gross laxity. ) - Neuro Neuro: No motor deficit, No sensory deficit Results - Vitals Vitals: Vital Signs - 24 hr 12/01/21 12/01/21 12:49 14:08 Temperature 36.2 C L 36.8 C Heart Rate 107 H 70 Respiratory 16 16 Rate Blood Pressure 119/99 H 133/103 H O2 Saturation 96 95 Oxygen O2 Source Room air - Rads (name of study) left ankle Radiology: Prelim report reviewed, See rad report (no fractures) PD MEDICAL DECISION MAKING - ED course Complexity details: reviewed results (no fractures), considered differential (ankle sprain versus fracture. Can get xray. She says she has had postural vertigo and ringing in left ear intermittent for couple of weeks. Denies URI symptoms, but does have some ear pressure feeling. Discussed reviewing this with her PMD and possible ENT referral. ), d/w patient Departure - Departure Disposition: 01 Home, Self Care Clinical Impression: Postural vertigo Ankle sprain Qualifiers: Encounter type: initial encounter Involved ligament of ankle: unspecified ligament Laterality: right Qualified Code(s): S93.401A - Sprain of unspecified ligament of right ankle, initial encounter Condition: Stable Record reviewed to determine appropriate education?: Yes Instructions: ED Sprain Ankle Follow-Up: Melody Jeffery DO [Primary Care Provider] - Comments: No fracture seen on your x-ray. It does seem swollen and painful enough that there is likely some injury to the ligaments and possibly the muscle on the outside of the ankle. This can still take 2 to 3 weeks to heal sometimes. Use the walking boot when up and around. You do not have to have it on all the time when rested. Ice elevate and rest your ankle often to reduce swelling. Tylenol if needed for pains. Recheck if not improving well over the next week or so and resolved over 2 to 3 weeks. Activity as tolerated. Discharge Date/Time: 12/01/21 14:09
[2021-12-01] MEDS ORDERED: ACETAMINOPHEN 325 MG TABLET PO STA (13:10)
--- NOTE | 2021-12-01 13:45 | XRAY Report ---
PROCEDURE: Ankle 3 View LT INDICATIONS: ankle inversion and pain last night TECHNIQUE: 3 views of the ankle were acquired. COMPARISON: xray ankle 10/02/21 FINDINGS: Bones: Questionable subacute distal fibular avulsion injury. Ankle mortise is normally aligned. No suspicious bony lesions. Soft tissues: Lateral malleolar effusion, persistent since 10/02/21. Achilles tendon appears braydon l. IMPRESSION: Questionable subacute distal fibular avulsion injury. Reviewed by: Brina Sauceda MD on 12/01/2021 1:44 PM PST Approved by: Brina Sauceda MD on 12/01/2021 1:44 PM [facility] Station ID: [id number]
[2021-12-01 14:08] VITALS: BP 133/103
== END 2021-12-01 14:09 | disposition home or self-care (01) ==
LOC: ED 12:40
DX: S93.402A Sprain of unspecified ligament of left ankle, initial encounter (principal); W18.30XA Fall on same level, unspecified, initial encounter; X50.1XXA Overexertion from prolonged static or awkward postures, initial encounter; Y92.009 Unspecified place in unspecified non-institutional (private) residence as the place of occurrence of the external cause; H81.10 Benign paroxysmal vertigo, unspecified ear; I10 Essential (primary) hypertension; Z87.891 Personal history of nicotine dependence
CPT/HCPCS: 99282; 99283

== ENCOUNTER 2022-01-23 14:34 | Outpatient (CLI) | payer MEDICAID, MEDICARE ==
--- NOTE | 2022-01-25 06:41 | Ultrasound Report ---
LIMITED ULTRASOUND OF RIGHT BREAST AND AXILLA: 01/23/2022 CLINICAL: Diffuse right breast pain. Comparison is made to exams dated: 07/15/2019 ultrasound, 07/15/2019 mammogram, and 07/16/2019 mammogra m - [facility]. Ultrasound of the right breast outer aspect and axilla regions was performed. Hernandez scale images of t he real-time examination were reviewed. No significant abnormalities were seen sonographically in the right breast. Specifically, no finding to correspond to the patient's palpable abnormality. IMPRESSION: NEGATIVE There is no sonographic evidence of malignancy. There is no abnormality seen in the right breast to correspond with the palpable abnormality in the o uter aspect which is most likely fibrosis and a scar. Clinical follow up only. Findings and recommendations were conveyed to the patient at time of exam. This exam was interpreted at Station ID: [id number]. Electronically Signed By: Tiara balderrama/:01/23/2022 15:52:11 Ultrasound BI-RADS: 1 Negative BI-RADS CATEGORY: (1) - 1 Unspecified - other recall n/a LATERALITY: (B)
== END 2022-01-23 14:35 | disposition home or self-care (01) ==
LOC: DI 14:34
PROVIDERS: ATTEND Internal Medicine Hematology & Oncology
DX: Z85.3 Personal history of malignant neoplasm of breast (principal); Z90.11 Acquired absence of right breast and nipple

== ENCOUNTER 2022-03-08 12:05 | Emergency (ER) | payer MEDICARE, BC, MEDICAID ==
[2022-03-08 13:05] LABS: BILIRUBIN,URINE NEGATIVE (NEGATIVE); GLUCOSE, URINE (UA) NEGATIVE (NEGATIVE); KETONES,URINE (UA) NEGATIVE (NEGATIVE); LEUKOCYTE ESTERASE, URINE NEGATIVE (NEGATIVE); NITRITE,URINE NEGATIVE (NEGATIVE); OCCULT BLOOD,URINE NEGATIVE (NEGATIVE); PROTEIN,URINE NEGATIVE (NEGATIVE); UROBILINOGEN,URINE 0.2 (NORMAL) E.U./dL (NORMAL)
[2022-03-08 13:06] LABS: CLARITY,URINE CLEAR (CLEAR)
[2022-03-08 13:07] LABS: HCG UR QUAL NEGATIVE
--- NOTE | 2022-03-08 13:09 | ED Physician Documentation ---
History of Present Illness - Stated complaint Stated Complaint: ABD PX - Chief complaint Chief Complaint: Abd Pain - Additonal information Additional information: 52-year-old female presents to the emergency department for evaluation of 3 days nausea vomiting and diarrhea. Denies any fevers. Denies any bloody output. States that she has never been this uncomfortable. no dysuria 9 she has a fairly significant surgical history that includes previous cholecystectomy, partial colectomy, multiple mesh repairs of hernia. She also has a history of breast cancer status post mastectomy. She has completed radiation and chemotherapy and is currently just on tamoxifen. Patient is on Suboxone secondary to a history of opioid use Review of Systems Constitutional: denies: Fever, Chills Nose: reports: Reviewed and negative Cardiac: reports: Reviewed and negative Respiratory: reports: Reviewed and negative GI: reports: Abdominal Pain, Nausea, Vomiting, Diarrhea. 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: Breast cancer : None HEENT: None Psych: Anxiety, Other Derm: None - Past Surgical History Past Surgical History: Yes General: Gastric surgery Ortho: Other /BALANCE TRUER: Other - Present Medications Home Medications: Ambulatory Orders Medication Instructions Recorded Confirmed Duloxetine HCl [Cymbalta] 60 mg PO DAILY 11/17/16 12/01/21 Buprenorphine HCl/Naloxone HCl 1 film SL BID 09/26/19 12/01/21 [Suboxone 8 mg-2 mg Sl Film] Trazodone HCl 50 mg PO QPM 09/26/19 12/01/21 lamoTRIgine [Lamictal] 200 mg PO DAILY 09/26/19 12/01/21 cloNIDine [Catapres] 0.1 mg PO ONCE PRN 11/23/20 12/01/21 Alprazolam [Xanax] 1 mg PO DAILY PRN 12/01/21 12/01/21 Ondansetron Odt [Zofran] 4 mg TL Q6H PRN #10 tablet 03/08/22 - Allergies Allergies/Adverse Reactions: Allergies Allergy/AdvReac Type Severity Reaction Status Date / Time ketorolac tromethamine * Allergy Edema Verified 03/08/22 12:15 [From Toradol] morphine Allergy Itching Verified 03/08/22 12:15 lorazepam [From Ativan] AdvReac Dizziness Verified 03/08/22 12:15 tramadol AdvReac Itching Verified 03/08/22 12:15 - Social History Does the pt smoke?: Yes Smoking Status: Former smoker Does the pt drink ETOH?: No Does the pt have substance abuse?: Yes - Immunizations Immunizations are current?: No Immunizations: Other immun not current - POLST Patient has POLST: No POLST Status: Full Code PD ED PE NORMAL - General General: Alert and oriented X 3, No acute distress, Well developed/nourished - HEENT HEENT: Atraumatic - Neck Neck: Supple, no meningeal sign, No adenopathy - Cardiac Cardiac: RRR, No murmur - Respiratory Respiratory: No respiratory distress, Clear bilaterally - Abdomen Abdomen: Normal bowel sounds, Soft. No: Non tender (Tenderness in the periumbilical and left lower quadrant. Significant scarring on the abdomen. No CVA or flank tenderness) - Derm Derm: Normal color, Warm and dry, No rash - Extremities Extremities: No deformity, No tenderness to palpate, Normal ROM s pain - Neuro Neuro: Alert and oriented X 3 Eye Opening: Spontaneous Motor: Obeys Commands Verbal: Oriented GCS Score: 15 Results - Vitals Vitals: Vital Signs - 24 hr 03/08/22 03/08/22 03/08/22 12:10 12:15 14:33 Temperature 36.0 C L 36.5 C 36.7 C Heart Rate 100 100 68 Respiratory 20 20 17 Rate Blood Pressure 125/75 125/75 138/87 H O2 Saturation 99 99 100 Oxygen O2 Source Room air - Labs Labs: Laboratory Tests 03/08/22 03/08/22 03/08/22 12:54 13:45 13:45 WBC 4.8 RBC 3.93 L Hgb 12.3 Hct 36.9 L MCV 93.9 MCH 31.3 H MCHC 33.3 RDW 12.7 Plt Count 265 MPV 8.6 Neut # (Auto) 3.1 Lymph # (Auto) 1.2 L [place] # (Auto) 0.4 Eos # (Auto) 0.1 Baso # (Auto) 0.0 Absolute Nucleated RBC 0.00 Nucleated RBC % 0.0 Sodium 137 Potassium 4.2 Chloride 102 Carbon Dioxide 27 Anion Gap 8.0 BUN 15 Creatinine 1.0 Estimated GFR (MDRD) 59 L Glucose 91 Calcium 9.0 Total Bilirubin 0.7 AST 25 ALT 20 Alkaline Phosphatase 54 Total Protein 7.3 Albumin 3.7 Globulin 3.6 Albumin/Globulin Ratio 1.0 Lipase 28 Urine Color YELLOW Urine Clarity CLEAR Urine pH 6.0 Ur Specific [place] 1.020 Urine Protein NEGATIVE Urine Glucose (UA) NEGATIVE Urine Ketones NEGATIVE Urine Occult Blood NEGATIVE Urine Nitrite NEGATIVE Urine Bilirubin NEGATIVE Urine Urobilinogen 0.2 (NORMAL) Ur Leukocyte Esterase NEGATIVE Ur Microscopic Review NOT INDICATED Urine Culture Comments NOT INDICATED Urine HCG, Qual NEGATIVE - Rads (name of study) CT abd Radiology: Final report received (Remote cholecystectomy, hysterectomy, partial colectomy and partial small bowel resection. Small paramidline anterior hernia containing fat. Predominantly like old distal colonic contents.) PD MEDICAL DECISION MAKING - ED course Complexity details: reviewed results, re-evaluated patient, d/w patient ED course: 52-year-old female presents emergency department for evaluation of nausea vomiting and diarrheas that began this am. Patient has a complex abdomen and significant surgical history. 1445: Despite multiple attempts by RN and laboratory staff labs were not able to be obtained as patient is a notoriously hard poke. I did evaluate the patient with ultrasound and did not find any obviously usable veins. Therefore we proceeded to obtain blood using an arterial poke on the right side of the radial wrist. This was done by myself. Positive Kaiden's. Given the patient's well appearance we will proceed with CT imaging but will defer contrast at this time. 1500: Screening labs have been evaluated. They are essentially unremarkable. No significant leukocytosis LFT or renal abnormalities. CT of the abdomen shows multiple previous surgeries but no secondary findings of bowel obstruction. She does have a fair amount of colonic debris in her lower colon. 9 at this time patient has remained hemodynamically stable here in the emergency department there is been no nausea or vomiting. She did not have a peritoneal belly exam. I suspect she likely has a viral gastroenteritis. She will be discharged with prescription for some Zofran and routine care. Emergent return precautions discussed Departure - Departure Disposition: 01 Home, Self Care Clinical Impression: Nausea vomiting and diarrhea Condition: Stable Record reviewed to determine appropriate education?: Yes Instructions: ED Gastroenteritis Report Pend Follow-Up: Melody Jeffery DO [Primary Care Provider] - Prescriptions: Ondansetron Odt [Zofran] 4 mg TL Q6H PRN #10 tablet PRN Reason: Nausea / Vomiting Comments: Abbi you are seen today in the emergency department for nausea, vomiting and diarrhea. Today in the emergency department your vital signs have all been essentially normal. Your screening labs are also essentially normal. There is no infection in your urine. CT of your abdomen confirms the multiple previous surgeries you have had. However there were no secondary findings to suggest bowel obstruction or perforation. As we discussed at the bedside I suspect that you likely have a stomach flu. Over the next 24 hours I recommend frequent sips of clear liquids. Once improved you can begin advancing your diet with bananas, rice, applesauce and toast. I have sent a prescription for Zofran to the [facility] in [place]. Return to the ER if you have uncontrolled vomiting or diarrhea, any of your output is bloody or black, you have fevers higher than 103, or suddenly severe or different belly pain
[2022-03-08] MEDS ORDERED: IOVERSOL 320 50 ML VIAL ONE (13:23)
[2022-03-08] MEDS: ONDANSETRON ODT 4 MG TABLET TL STA (13:50)
[2022-03-08] MEDS: HYDROmorphone 1 MG/ML CARPUJECT IM STA (13:51)
[2022-03-08] MEDS: oxyCODONE 5 MG TABLET PO STA ×2 (13:55→15:03)
[2022-03-08 13:56] LABS: BASOPHILS % (AUTO) 0.2 %; EOSINOPHILS # (AUTO) 0.1 10^3/uL (0.0-0.7); EOSINOPHILS % (AUTO) 1.5 %; HCT - HEMATOCRIT 36.9 % (37.0-47.0); HGB - HEMOGLOBIN 12.3 g/dL (12.0-16.0); LYMPHOCYTES # (AUTO) 1.2 10^3/uL (1.5-3.5); LYMPHOCYTES % (AUTO) 25.5 %; MEAN CORPUSCULAR HEMOGLOBIN 31.3 pg (27.0-31.0); MEAN CORPUSCULAR HGB CONC 33.3 g/dL (32.0-36.0); MEAN CORPUSCULAR VOLUME 93.9 fL (81.0-99.0); MEAN PLATELET VOLUME 8.6 fL (7.9-10.8); MONOCYTES # (AUTO) 0.4 10^3/uL (0.0-1.0); MONOCYTES % (AUTO) 7.5 %; NEUTROPHILS # (AUTO) 3.1 10^3/uL (1.5-6.6); NEUTROPHILS % (AUTO) 65.1 %; PLT - PLATELET COUNT 265 10^3/uL (130-450); RED BLOOD COUNT 3.93 10^6/uL (4.20-5.40); RED CELL DISTRIBUTION WIDTH 12.7 % (12.0-15.0); WHITE BLOOD COUNT 4.8 x10^3/uL (4.8-10.8)
[2022-03-08] MEDS: HYDROmorphone 1 MG/ML CARPUJECT IVP STA (13:57)
[2022-03-08] MEDS: SODIUM CHLORIDE 0.9% 1,000 ML IV STA (13:57)
[2022-03-08] MEDS: ONDANSETRON 4 MG/2 ML VIAL IVP STA (13:57)
[2022-03-08 14:12] LABS: ALBUMIN 3.7 g/dL (3.2-5.5); BILIRUBIN,TOTAL 0.7 mg/dL (0.2-1.0); POTASSIUM 4.2 mmol/L (3.5-5.0); TOTAL PROTEIN 7.3 g/dL (6.7-8.2)
[2022-03-08 14:33] VITALS: BP 138/87
--- NOTE | 2022-03-08 14:42 | CT Report ---
PROCEDURE: Abdomen/Pelvis WO INDICATIONS: n/v/d TECHNIQUE: Noncontrast 5 mm thick sections acquired from the diaphragms to the symphysis. 5 mm coronal and sagi ttal reformats were then performed. For radiation dose reduction, the following was used: automated exposure control, adjustment of mA and/or kV according to patient size. COMPARISON: 08/14/2021 FINDINGS: Image quality: Excellent. ABDOMEN: Lung bases: Lung bases are clear. Heart size is normal. Bilateral mammoplasties. Solid organs: Liver and spleen are normal in size. Gallbladder is surgically absent Pancreas is no rmal in contours. No adrenal nodules. Kidneys are normal in size, without hydronephrosis or nephrol ithiasis. Peritoneum and bowel: Remote partial colectomy and interval partial small bowel resection, also remot e. Prominent distal colon is again noted. Its contents are predominantly liquid currently. No evidenc e of bowel obstruction. No free fluid or air. Nodes and vessels: No retroperitoneal or mesenteric adenopathy by size criteria. Aorta and inferior vena cava are normal in caliber. Miscellaneous: Remote midline anterior abdominal wound which likely heal by secondary intention. Prev iously, there was a left paramidline hernia containing herniated small bowel. Currently, there is a s mall abdominal wall defect ventrally which is easiest to see on the sagittal images, containing herni ated mesenteric fat. There is no herniated bowel. There has been interval partial small bowel resecti on in addition to the previous partial colectomy. PELVIS: Genitourinary: Bladder wall thickness is normal. Miscellaneous: No inguinal hernias or adenopathy. Uterus is surgically absent. Bones: No suspicious bony lesions. No vertebral body compression fractures. IMPRESSION: 1. Remote cholecystectomy, hysterectomy, partial colectomy, partial small bowel resection. 2. There is a small paramidline left anterior hernia containing mesenteric fat. 3. Predominantly likely distal colonic contents. Reviewed by: Ronn Alvarez MD on 03/08/2022 2:40 PM PDT Approved by: Ronn Alvarez MD on 03/08/2022 2:40 PM PDT Station ID: [id number]
== END 2022-03-08 15:13 | disposition home or self-care (01) ==
LOC: ED 12:05
DX: R11.2 Nausea with vomiting, unspecified (principal); R19.7 Diarrhea, unspecified; I10 Essential (primary) hypertension; Z87.891 Personal history of nicotine dependence
CPT/HCPCS: 36415; 74176; 80053; 81003; 81025; 83690; 85025; 96372; 99283; 99284; A9270; J1170; Q0162; 81001; 87086

== ENCOUNTER 2022-08-28 15:29 | Emergency (ER) | payer MEDICARE, MEDICAID ==
[2022-08-28 16:05] VITALS: BP 115/74
[2022-08-28] MEDS ORDERED: HYDROmorphone 1 MG/ML CARPUJECT IVP STA (17:38)
[2022-08-28] MEDS ORDERED: SODIUM CHLORIDE 0.9% 1,000 ML IV STA (17:38)
--- NOTE | 2022-08-28 17:40 | ED Physician Documentation ---
PD HPI MAJOR TRAUMA - Stated complaint Stated Complaint: FATIGUE/BACK PX - Chief complaint Chief Complaint: Cardiac - History obtained from History obtained from: Patient - Additional information Additional information: This is a 52-year-old woman with history of cholecystectomy, breast cancer in remission status post bilateral mastectomy who presents with a variety of subacute symptoms that make her worried about a recurrence of her cancer. Specifically over the last 4 to 6 months she has had bilateral breast pain and feeling like her implants are lumpy. She has had spinal pain, headaches, di sequilibrium. None of this is new per se. Just got to the point that it worried her. Review of Systems Ten Systems: 10 systems reviewed and negative Constitutional: reports: Fatigue. denies: Fever, Chills Nose: denies: Rhinorrhea / runny nose, Congestion Respiratory: denies: Dyspnea, Cough Neurologic: reports: Other (She has twitching at night) PD PAST MEDICAL HISTORY - Past Medical History Past Medical History: Yes Cardiovascular: Hypertension Respiratory: None Neuro: None Endocrine/Autoimmune: None GI: Hepatitis PRINCIPAL SOLUTIONS ARCHITECT: Breast cancer : None HEENT: None Psych: Anxiety, Other Derm: None - Past Surgical History Past Surgical History: Yes General: Gastric surgery Ortho: Other /PRINCIPAL SOLUTIONS ARCHITECT: Other - Present Medications Home Medications: Ambulatory Orders Medication Instructions Recorded Confirmed Duloxetine HCl [Cymbalta] 60 mg PO DAILY 11/17/16 04/25/22 Buprenorphine HCl/Naloxone HCl 1 film SL BID 09/26/19 04/25/22 [Suboxone 8 mg-2 mg Sl Film] Trazodone HCl 50 mg PO QPM 09/26/19 04/25/22 lamoTRIgine [Lamictal] 200 mg PO DAILY 09/26/19 04/25/22 cloNIDine [Catapres] 0.1 mg PO ONCE PRN 11/23/20 04/25/22 Alprazolam [Xanax] 1 mg PO DAILY PRN 12/01/21 04/25/22 Ondansetron Odt [Zofran] 4 mg TL Q6H PRN #10 tablet 03/08/22 04/25/22 - Allergies Allergies/Adverse Reactions: Allergies Allergy/AdvReac Type Severity Reaction Status Date / Time ketorolac tromethamine * Allergy Edema Verified 08/28/22 16:05 [From Toradol] morphine Allergy Itching Verified 08/28/22 16:05 lorazepam [From Ativan] AdvReac Dizziness Verified 08/28/22 16:05 tramadol AdvReac Itching Verified 08/28/22 16:05 - Social History Does the pt smoke?: Yes Smoking Status: Current every day smoker Does the pt drink ETOH?: No Does the pt have substance abuse?: Yes - Immunizations Immunizations are current?: No Immunizations: Other immun not current - POLST Patient has POLST: No POLST Status: Full Code PD ED PE NORMAL - Vitals Vital signs reviewed: Yes - General General: Alert and oriented X 3, Other (Slow slurred speech) - HEENT HEENT: PERRL (Difficulty with extraocular movements) - Neck Neck: Supple, no meningeal sign, No bony TTP - Cardiac Cardiac: RRR, No murmur - Respiratory Respiratory: No respiratory distress, Clear bilaterally - Abdomen Abdomen: Soft, Non tender - Back Back: No CVA TTP, No spinal TTP - Derm Derm: Normal color, Warm and dry - Extremities Extremities: No edema, No calf tenderness / cord - Neuro Neuro: Alert and oriented X 3, Normal speech Results - Vitals Vitals: Vital Signs - 24 hr 08/28/22 15:56 Temperature 36.8 C Heart Rate 97 Respiratory 20 Rate Blood Pressure 115/74 O2 Saturation 100 Oxygen O2 Source Room air - EKG (time done) 1606 Rate: Rate (enter#) (94) Rhythm: NSR [place]: Normal Intervals: Normal [place] QRS: Normal Ischemia: Normal ST segments - Labs Labs: Laboratory Tests 08/28/22 08/28/22 08/28/22 19:11 19:11 19:11 WBC 4.5 L RBC 3.82 L Hgb 11.9 L Hct 35.4 L MCV 92.7 MCH 31.2 H MCHC 33.6 RDW 13.0 Plt Count 273 MPV 8.7 Neut # (Auto) 2.1 Lymph # (Auto) 1.6 [place] # (Auto) 0.5 Eos # (Auto) 0.3 Baso # (Auto) 0.0 Absolute Nucleated RBC 0.00 Nucleated RBC % 0.0 Sodium 137 Potassium 4.3 Chloride 103 Carbon Dioxide 29 Anion Gap 5.0 L BUN 13 Creatinine 0.8 Estimated GFR (MDRD) 76 L Glucose 90 Calcium 9.2 Total Bilirubin 0.5 AST 30 ALT 26 Alkaline Phosphatase 55 Total Protein 6.7 Albumin 3.7 Globulin 3.0 Albumin/Globulin Ratio 1.2 TSH 1.35 Ethyl Alcohol < 5.0 PD MEDICAL DECISION MAKING - ED course ED course: 52-year-old woman with history of breast cancer presents with nonspecific symptoms of fatigue, pains all over and disequilibrium. The differential diagnosis is broad but she is most worried about a recurrence of her breast cancer. As such labs and CT imaging of the head chest and abdomen were ordered to evaluate for metastatic disease. She was difficult for IV access, multiple nurses tried and failed. I attempted an external jugular line without success. Subsequently a personally cindi her blood using real-time ultrasound guidance from the right antecubital fossa. She very much wanted IV fluids but her vital signs suggest that she does not need them. Mostly she is worried about a recurrence of breast cancer and will assess for that with CT. Subsequently she said she had to go home and take care of her dog. She declined further work-up. There is no apparent emergency medical condition but she does need follow-up and she is understanding. Departure - Departure Disposition: 01 Home, Self Care Clinical Impression: Dizzy Fatigue Qualifiers: Fatigue type: unspecified Qualified Code(s): R53.83 - Other fatigue Back pain Qualifiers: Back pain location: low back pain Chronicity: chronic Back pain laterality: midline Sciatica presence: without sciatica Qualified Code(s): M54.50 - Low back pain, unspecified; G89.29 - Other chronic pain Condition: Good Record reviewed to determine appropriate education?: Yes Instructions: ED Dizziness UKO, ED Acute Pain [facility]O Comments: You were seen tonight for symptoms that concern you for recurrence of your cancer. We did lab work which was relatively unremarkable except for mild anemia which is not new for you. We had CAT scans of your head, chest and abdomen ordered to evaluate you for any metastatic disease which you have declined wanting to go home and take care of your dog. Return anytime if you decide you want further work-up. Reasonable given the nonemergent nature of your symptoms follow-up with your primary care physician, next available appointment.
[2022-08-28] MEDS ORDERED: HYDROmorphone 1 MG/ML CARPUJECT IM STA ×2 (18:11→19:11)
[2022-08-28 19:14] LABS: BASOPHILS % (AUTO) 0.9 %; EOSINOPHILS # (AUTO) 0.3 10^3/uL (0.0-0.7); EOSINOPHILS % (AUTO) 6.3 %; HCT - HEMATOCRIT 35.4 % (37.0-47.0); HGB - HEMOGLOBIN 11.9 g/dL (12.0-16.0); LYMPHOCYTES # (AUTO) 1.6 10^3/uL (1.5-3.5); LYMPHOCYTES % (AUTO) 35.9 %; MEAN CORPUSCULAR HEMOGLOBIN 31.2 pg (27.0-31.0); MEAN CORPUSCULAR HGB CONC 33.6 g/dL (32.0-36.0); MEAN CORPUSCULAR VOLUME 92.7 fL (81.0-99.0); MEAN PLATELET VOLUME 8.7 fL (7.9-10.8); MONOCYTES # (AUTO) 0.5 10^3/uL (0.0-1.0); MONOCYTES % (AUTO) 10.3 %; NEUTROPHILS # (AUTO) 2.1 10^3/uL (1.5-6.6); NEUTROPHILS % (AUTO) 45.9 %; PLT - PLATELET COUNT 273 10^3/uL (130-450); RED BLOOD COUNT 3.82 10^6/uL (4.20-5.40); WHITE BLOOD COUNT 4.5 x10^3/uL (4.8-10.8)
[2022-08-28 19:28] LABS: ALBUMIN 3.7 g/dL (3.2-5.5); ALBUMIN/GLOBULIN RATIO 1.2 (1.0-2.2); ALKALINE PHOSPHATASE 55 IU/L (42-121); ALT ALANINE AMINOTRANSFERASE 26 IU/L (10-60); AST ASPARTATE AMINOTRANSFERASE 30 IU/L (10-42); BILIRUBIN,TOTAL 0.5 mg/dL (0.2-1.0); BUN - BLOOD UREA NITROGEN 13 mg/dL (6-20); CALCIUM 9.2 mg/dL (8.5-10.3); CARBON DIOXIDE - CO2 29 mmol/L (21-32); CHLORIDE 103 mmol/L (101-111); CREATININE 0.8 mg/dL (0.4-1.0); ETOH - ETHANOL < 5.0 mg/dL; GFR - MDRD 76 (>89); GLUCOSE 90 mg/dL (70-100); POTASSIUM 4.3 mmol/L (3.5-5.0); SODIUM 137 mmol/L (135-145); TOTAL PROTEIN 6.7 g/dL (6.7-8.2)
== END 2022-08-28 20:11 | disposition home or self-care (01) ==
LOC: ED 15:29
DX: R42 Dizziness and giddiness (principal); R53.83 Other fatigue; M54.50 Low back pain, unspecified; G89.29 Other chronic pain; I10 Essential (primary) hypertension; F17.200 Nicotine dependence, unspecified, uncomplicated; Z90.13 Acquired absence of bilateral breasts and nipples
CPT/HCPCS: 36415; 80053; 84443; 85025; 93005; 96372; 99282; 99283; G0480; J1170; 80320

== ENCOUNTER 2022-10-13 09:17 | Emergency (ER) | payer MEDICARE, MEDICAID ==
--- NOTE | 2022-10-13 10:00 | ED Physician Documentation ---
PD HPI NVD - Stated complaint Stated Complaint: WITHDRAWLS - Chief complaint Chief Complaint: General - History obtained from History obtained from: Patient - History of Present Illness Timing - onset: How many days ago (3 days of increasing nausea/vomiting, shakiness, tremor, and lightheadedness. She states she had seen her PCP about 2 weeks ago and was given new scripts for her anxiety. She states had Xanax renewed and increased from 2 to 3 daily, and also had Cymbalta dose doubled and new Rx gabapentin 300 mg TID), Other (she states she felt foggy, lightheaded, and nauseated with the new meds. She states in retrospect that she took her Xanax regularly throughout the day to feel calmer without remembering it and took more. States she took 90 tabs over 8 days. ran out 3 days ago. also her Sub oxone. stopped ETOH too.) Timing - details: Gradual onset Associated symptoms: Abdominal pain (cramping pains diffusely with nausea and vomiting the past 1-2 days.). No: Fever Similar symptoms before: Has not had sx before Recently seen: Clinic (2 weeks ago) Review of Systems Constitutional: reports: Chills, Fatigue. denies: Fever Nose: reports: Rhinorrhea / runny nose. denies: Congestion Throat: denies: Sore throat Cardiac: reports: Palpitations. denies: Chest pain / pressure, Pedal edema Respiratory: denies: Cough GI: reports: Abdominal Pain, Nausea, Vomiting. denies: Constipation, Diarrhea Skin: denies: Rash, Lesions Neurologic: reports: Generalized weakness, Confused, Other (shaky/tremors. Denies seizures nor halluciations.). 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 : None HEENT: None Psych: Anxiety, Other Derm: None - Past Surgical History Past Surgical History: Yes General: Gastric surgery Ortho: Other /CLIENT RESOLUTION SPECIALIST: Other - Present Medications Home Medications: Ambulatory Orders Medication Instructions Recorded Confirmed Duloxetine HCl [Cymbalta] 60 mg PO DAILY 11/17/16 09/10/22 Buprenorphine HCl/Naloxone HCl 1 film SL BID 09/26/19 09/10/22 [Suboxone 8 mg-2 mg Sl Film] Trazodone HCl 50 mg PO QPM 09/26/19 09/10/22 lamoTRIgine [Lamictal] 200 mg PO DAILY 09/26/19 09/10/22 cloNIDine [Catapres] 0.1 mg PO ONCE PRN 11/23/20 09/10/22 Alprazolam [Xanax] 1 mg PO DAILY PRN 12/01/21 09/10/22 Buprenorphine HCl/Naloxone HCl 1 each SL DAILY 09/10/22 09/10/22 [Suboxone 8 mg-2 mg Sl Film] DULoxetine [Cymbalta] 90 mg PO DAILY 09/10/22 09/10/22 Alprazolam [Xanax] 1 mg PO BID 5 Days #10 tablet 10/13/22 Buprenorphine HCl/Naloxone HCl 1 each SL BID 5 Days #10 film 10/13/22 [Suboxone 4 mg-1 mg Sl Film] Ondansetron Odt [Zofran] 4 mg TL Q6H PRN #10 tablet 10/13/22 PHENobarbitaL [Phenobarbital] 30 mg PO BID 6 Days #9 tablet 10/13/22 - Allergies Allergies/Adverse Reactions: Allergies Allergy/AdvReac Type Severity Reaction Status Date / Time ketorolac tromethamine * Allergy Edema Verified 10/13/22 09:34 [From Toradol] morphine Allergy Itching Verified 10/13/22 09:34 lorazepam [From Ativan] AdvReac Dizziness Verified 10/13/22 09:34 tramadol AdvReac Itching Verified 10/13/22 09:34 - Social History Does the pt smoke?: Yes Smoking Status: Current every day smoker Does the pt drink ETOH?: Yes ETOH Use: Other (drinks heavily in binges. ) Does the pt have substance abuse?: Yes Substance Use and Type: Marijuana - Immunizations Immunizations are current?: No Immunizations: Other immun not current - POLST Patient has POLST: No POLST Status: Full Code PD ED PE NORMAL - Vitals Vital signs reviewed: Yes - General General: Alert and oriented X 3, Well developed/nourished, Other (she is very tremorous, tachycardic, having dry heaving, and abd cramping. Pale and sweaty. ) - HEENT HEENT: Pharynx benign - Neck Neck: Supple, no meningeal sign, No adenopathy - Cardiac Cardiac: No murmur. No: RRR (tachycardic) - Respiratory Respiratory: Clear bilaterally - Abdomen Abdomen: Soft, Non distended, Other (generally tender without percussion nor guarding tenderness. ). No: Normal bowel sounds (increased) - Derm Derm: No: Normal color (pale), Warm and dry (sweaty) - Extremities Extremities: Normal ROM s pain - Neuro Neuro: Alert and oriented X 3, No motor deficit, Normal speech, Other (shaky and tremoring) Results - Vitals Vitals: Oxygen O2 Source Room air - Labs Labs: Laboratory Tests 10/13/22 10/13/22 11:01 11:01 Urine Color YELLOW Urine Clarity CLEAR Urine pH 7.0 Ur Specific [place] 1.010 Urine Protein NEGATIVE Urine Glucose (UA) NEGATIVE Urine Ketones NEGATIVE Urine Occult Blood NEGATIVE Urine Nitrite NEGATIVE Urine Bilirubin NEGATIVE Urine Urobilinogen 0.2 (NORMAL) Ur Leukocyte Esterase NEGATIVE Ur Microscopic Review NOT INDICATED Urine Culture Comments NOT INDICATED Urine Opiates Screen NEGATIVE Ur Oxycodone Screen NEGATIVE Urine Methadone Screen NEGATIVE Ur Propoxyphene Screen NEGATIVE Ur Barbiturates Screen NEGATIVE Ur Tricyclics Screen NEGATIVE Ur Phencyclidine Scrn NEGATIVE Ur Amphetamine Screen NEGATIVE U Methamphetamines Scrn NEGATIVE U Benzodiazepines Scrn POSITIVE H Urine Cocaine Screen NEGATIVE U Cannabinoids Screen NEGATIVE PD MEDICAL DECISION MAKING - ED course Complexity details: re-evaluated patient (Given IM meds as difficult IV start initially. Anesth started one and then pt given fluids and meds for alcohol and narcotic withdrawal. She is feeling much better. Taking fluids/calmer. Shared discussion to Rx her 5 days of meds to get to discuss with her PCP and resume meds.), considered differential (seems plausible that she had side effects of increased Cymbalta as well as high starting dose of gabapentin 300 mg TID with confusion/etc. Then overtook her Xanax. Now having multiple med withdrawal of benzos, alcohol, and opiate (Suboxone 4/1 biD). ), d/w patient Departure - Departure Disposition: 01 Home, Self Care Clinical Impression: Withdrawal from benzodiazepine, Alcohol withdrawal, Medication side effect, Chronic pain disorder, Nausea and vomiting Condition: Stable Record reviewed to determine appropriate education?: Yes Prescriptions: PHENobarbitaL [Phenobarbital] 30 mg PO BID 6 Days #9 tablet Buprenorphine HCl/Naloxone HCl [Suboxone 4 mg-1 mg Sl Film] 1 each SL BID 5 Days #10 film Alprazolam [Xanax] 1 mg PO BID 5 Days #10 tablet Ondansetron Odt [Zofran] 4 mg TL Q6H PRN #10 tablet PRN Reason: Nausea / Vomiting Comments: It does sound like you are having side effects from the new prescription medications. Revert to the prior once a day dose of the Cymbalta. Hold off on the gabapentin for now until you discuss with your primary care. Take your Xanax twice daily as previously prescribed. Regarding the alcohol withdrawal, we can also add phenobarbital twice daily for the 3 days and then once daily for 3 days. Obviously avoid alcohol during that time and from here on. Add ondansetron every 4-6 hours if needed for nausea. I wrote a prescription for your Suboxone strips to continue twice daily. I prescribed 5 days worth of the above medications in order to allow time for you to contact and see your primary care provider for subsequent refills. This also gives an opportunity for you to contact some of the detox treatment program such as it to in [place] for further treatment. I sent your prescriptions to [facility] pharmacy. Return to the ER if worse symptoms again. Discharge Date/Time: 10/13/22 13:57
--- OUTSIDE RECORDS SUMMARY | 2022-10-13 10:02 | EXTERNAL MEDICAL SUMMARY RPT | Continuity of Care Document ---
:1970 Author Organization [place] Address [address] [place] [address] Phone Care Team Providers Name Role Phone Jose Ramon Hodges Unavailable Unavailable Allergies No information. Encounters No information. Functional Status No information. Immunizations No information. Medications date description facility [id number] [facility] [id number] Alprazolam [facility] [phone] [facility] [phone] Clonazepam [facility] [id number] Gabapentin [facility] [phone] Duloxetine [facility] [phone] Trazodone [facility] [phone] Dextroamphetamine-Amphetamine [facility] Problems No information. Procedures No information. Results/Labs No information. Social History date description facility [id number] Smokes tobacco daily (finding) [facility] Vital Signs No information.
[2022-10-13 11:04] LABS: MUDS CUTOFF CONCENTRATIONS CUTOFF CONC BELOW:
[2022-10-13 11:08] LABS: BILIRUBIN,URINE NEGATIVE (NEGATIVE); GLUCOSE, URINE (UA) NEGATIVE (NEGATIVE); KETONES,URINE (UA) NEGATIVE (NEGATIVE); LEUKOCYTE ESTERASE, URINE NEGATIVE (NEGATIVE); NITRITE,URINE NEGATIVE (NEGATIVE); OCCULT BLOOD,URINE NEGATIVE (NEGATIVE); PROTEIN,URINE NEGATIVE (NEGATIVE); UROBILINOGEN,URINE 0.2 (NORMAL) E.U./dL (NORMAL)
[2022-10-13 11:12] LABS: CLARITY,URINE CLEAR (CLEAR)
[2022-10-13 11:18] LABS: BENZODIAZEPINES SCREEN, URINE POSITIVE (NEGATIVE)
[2022-10-13 11:19] LABS: AMPHETAMINE SCREEN,URINE NEGATIVE (NEGATIVE); BARBITURATE SCREEN,UR NEGATIVE (NEGATIVE); COCAINE SCREEN URINE NEGATIVE (NEGATIVE); METHADONE SCREEN, URINE NEGATIVE (NEGATIVE); METHAMPHETAMINES SCREEN, URINE NEGATIVE (NEGATIVE); OPIATE SCREEN, URINE NEGATIVE (NEGATIVE); OXYCODONE SCREEN, URINE NEGATIVE (NEGATIVE); PROPOXYPHENE SCREEN, URINE NEGATIVE (NEGATIVE); THC CANNABINOID SCREEN, URINE NEGATIVE (NEGATIVE); TRICYCLIC ANTIDEPRESSANT,URINE NEGATIVE (NEGATIVE)
[2022-10-13] MEDS: PHENobarbital 65 MG/ML VIAL IM STA (11:22)
[2022-10-13] MEDS: ONDANSETRON 4 MG/2 ML VIAL IM STA (11:22)
[2022-10-13] MEDS: SODIUM CHLORIDE 0.9% 1,000 ML IV STA ×2 (12:44→13:53)
[2022-10-13] MEDS: diazePAM INJ 5 MG/ML SYRINGE IVP STA (12:45)
[2022-10-13] MEDS: BUPRENORPHINE 0.3 MG/ML VIAL IVP ONE (12:45)
[2022-10-13] MEDS: PHENobarbital 65 MG/ML VIAL IV STA (12:45)
[2022-10-13] MEDS: HYDROmorphone 2 MG/ML VIAL IVP STA (13:35)
[2022-10-13 13:54] VITALS: BP 91/58
== END 2022-10-13 13:57 | disposition home or self-care (01) ==
LOC: ED 09:17
DX: F11.23 Opioid dependence with withdrawal (principal); F10.239 Alcohol dependence with withdrawal, unspecified; G89.29 Other chronic pain; F17.200 Nicotine dependence, unspecified, uncomplicated
CPT/HCPCS: 80306; 81003; 96372; 96374; 96375; 99284; 99285; J0592; J1170; 80053; 80307; 80320; 80329; 81001; 83690; 83735; 85025; 87086

== ENCOUNTER 2022-12-18 13:28 | Emergency (ER) | payer MEDICARE, MEDICAID ==
[2022-12-18] MEDS ORDERED: oxyCODONE 5 MG TABLET PO STA (14:01)
--- OUTSIDE RECORDS SUMMARY | 2022-12-18 14:14 | EXTERNAL MEDICAL SUMMARY RPT | Continuity of Care Document ---
:1970 Author Organization [place] Address [address] [place] [address] Phone Care Team Providers Name Role Phone Carroll Jose Ramon Unavailable Unavailable Allergies No information. Encounters No information. Functional Status No information. Immunizations No information. Medications date description facility 2022-10-02 00:00 [facility] 2022-10-16 00:00 [facility] 2022-10-21 00:00 [facility] 2022-10-31 00:00 [facility] 2022-11-19 00:00 [facility] 2022-11-20 00:00 [facility] Problems No information. Procedures No information. Results/Labs No information. Social History date description facility 2022-10-02 00:00 Smokes tobacco daily (finding) [facility] 2022-10-16 00:00 Smokes tobacco daily (finding) [facility] 2022-10-21 00:00 Smokes tobacco daily (finding) [facility] 2022-11-21 00:00 Smokes tobacco daily (finding) [facility] Vital Signs No information.
--- NOTE | 2022-12-18 15:07 | ED Physician Documentation ---
PD HPI LOWER EXT INJURY - Stated complaint Stated Complaint: R FOOT INJURY - Chief complaint Chief Complaint: Trauma Ext - History obtained from History obtained from: Patient - Additional information Additional information: Patient is a 52-year-old female with a history of breast cancer in remission since 2020 presenting for evaluation of right ankle and foot pain that has been present for several weeks. Patient reports a few weeks ago she was in her house when her legs felt weak and gave out on her and she fell. She recalls rolling her right ankle. Since that time she has had continued pain particularly with ambulating.She thought initially that it was just a bone pain and was having difficulties with her transportation as her car broke down so did not seek help. She has had some increased recent falls including falling out of bed 2 nights ago.She denies head injury or LOC. She denies currently feeling weak or dizzy. She was able to walk here from her home.She is not currently on any pain medications.She denies pain or injury elsewhere. 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 : None HEENT: None Psych: Depression, Anxiety, Other Derm: None - Past Surgical History Past Surgical History: Yes General: Gastric surgery Ortho: Other /EXECUTIVE ASSISTANT TO PRESIDENT: Mastectomy, Other - Present Medications Home Medications: Ambulatory Orders Medication Instructions Recorded Confirmed Duloxetine HCl [Cymbalta] 60 mg PO DAILY 11/17/16 12/18/22 Trazodone HCl 50 mg PO QPM 09/26/19 09/10/22 lamoTRIgine [Lamictal] 200 mg PO DAILY 09/26/19 12/18/22 Alprazolam [Xanax] 1 mg PO DAILY PRN 12/01/21 09/10/22 Buprenorphine HCl/Naloxone HCl 1 each SL DAILY 09/10/22 09/10/22 [Suboxone 8 mg-2 mg Sl Film] Alprazolam [Xanax] 1 mg PO BID 5 Days #10 tablet 10/13/22 12/18/22 Buprenorphine HCl/Naloxone HCl 1 each SL BID 5 Days #10 film 10/13/22 [Suboxone 4 mg-1 mg Sl Film] PHENobarbitaL [Phenobarbital] 30 mg PO BID 6 Days #9 tablet 10/13/22 Oxycodone HCl/Acetaminophen 1 each PO Q6H PRN #14 tablet 12/18/22 [Percocet 5-325 mg Tablet] - Allergies Allergies/Adverse Reactions: Allergies Allergy/AdvReac Type Severity Reaction Status Date / Time ketorolac tromethamine * Allergy Edema Verified 12/18/22 13:40 [From Toradol] morphine Allergy Itching Verified 12/18/22 13:40 lorazepam [From Ativan] AdvReac Dizziness Verified 12/18/22 13:40 tramadol AdvReac Itching Verified 12/18/22 13:40 - Social History Does the pt smoke?: Yes Smoking Status: Current every day smoker Does the pt drink ETOH?: Yes Does the pt have substance abuse?: No - Immunizations Immunizations are current?: No Immunizations: Other immun not current - POLST Patient has POLST: No POLST Status: Full Code PD ED PE NORMAL - General General: Alert and oriented X 3, No acute distress, Well developed/nourished - HEENT HEENT: Atraumatic - Neck Neck: Supple, no meningeal sign - Cardiac Cardiac: RRR, Strong equal pulses - Respiratory Respiratory: No respiratory distress, Clear bilaterally - Abdomen Abdomen: Soft, Non tender - Derm Derm: Warm and dry - Extremities Extremities: No deformity, No edema, No calf tenderness / cord, Other (Compartments of extremity are soft, Tenderness to lateral right foot and lateral right ankle and distal tib-fib, No visible swelling or bruising) - Neuro Neuro: Alert and oriented X 3, No motor deficit, No sensory deficit, Normal speech Results - Vitals Vitals: Vital Signs - 24 hr 12/18/22 12/18/22 13:34 15:21 Temperature 37.0 C Heart Rate 115 H 87 Respiratory 20 16 Rate Blood Pressure 138/96 H 167/118 H O2 Saturation 100 100 Oxygen O2 Source Room air PD Medical Decision Making - ED course Complexity details: reviewed results, re-evaluated patient, d/w patient ED course: Patient presenting for evaluation of right ankle and foot pain since an injury a few weeks ago. She has been ambulating on the extremity. Her compartments are soft and there is no visible swelling or deformity. I personally reviewed her x-rays and radiology report was not yet available at time of disposition. I see a fracture to the distal fibula and To the fifth proximal phalanx.Patient has been ambulating on the extremity for several weeks since her injury. I have placed her into a walking boot and given crutches. I will also advise her to follow-up with orthopedic surgery and she has seen Dr. Maddox in the past for a wrist surgery.She denies pain elsewhere. Her neuro exam is normal. She does not have any other complaints such as weakness, dizziness today.Patient was also given a prescription for narcotic pain medication. She is counseled on concerning symptoms to return for. Departure - Departure Disposition: 01 Home, Self Care Clinical Impression: Closed fracture of right distal fibula Qualifiers: Encounter type: initial encounter Fracture morphology: other fracture Qualified Code(s): S82.831A - Other fracture of upper and lower end of right fibula, initial encounter for closed fracture Phalanx fracture, foot Qualifiers: Encounter type: initial encounter Toe: lesser toe Fracture type: closed Phalanx: proximal Fracture alignment: nondisplaced Laterality: right Qualified Code(s): S92.514A - Nondisplaced fracture of proximal phalanx of right lesser toe(s), initial encounter for closed fracture Condition: Stable Instructions: ED Fx Foot, ED Fx Ankle Lateral Malleolus Prescriptions: Oxycodone HCl/Acetaminophen [Percocet 5-325 mg Tablet] 1 each PO Q6H PRN #14 tablet PRN Reason: pain Comments: Your x-rays show that you have a fracture in your ankle and in your foot. We have applied a walking boot.I have sent a small amount of pain medication to [facility] in [place]. Also recommend using crutches as needed for support And if it hurts to bear weight would recommend staying off the leg.I would recommend close follow-up with your primary care doctor or orthopedic surgery as you have seen one locally before.Return to the ER with any worsening symptoms. I am prescribing a short course of narcotic pain medication for you. These are potentially dangerous and addictive medications that should be used carefully. These medications may constipate you. Take an amdl-vjc-wujswpc stool softener (docusate) twice daily with plenty of water while taking these medications. If you go 24 hours without a bowel movement, take kvit-vtp-[id number] miralax, per package instructions. Do not drink or drive while taking these medications. If you received narcotic or sedating medications while in the emergency department, do not drive for 24 hours. Store this medication in a safe, secure place and out of reach of children. It is a violation of federal law to give or sell this medication to another person or to use in a manner other than prescribed. The ED will not refill narcotic prescriptions, including prescriptions lost or stolen. To dispose of unwanted medications: 1. [facility] [address] in [place] has a medication drop box. They accept prescription medications (in pill form) Friday through Friday 9:00 a.m. to 5:00 p.m. 2. [facility] [employer] accepts prescription medications (in pill form only) for disposal year round. Call for more information. 3. Contact the [facility] for the next [facility] sponsored prescription d rug collection event. , [phone], or [phone]; Note that many narcotic pain relievers also contain Tylenol/acetaminophen. Please ensure that your total dose of acetaminophen from all sources does not exceed 3 g (3000 mg) per day. Discharge Date/Time: 12/18/22 15:21
[2022-12-18 15:22] VITALS: BP 167/118
--- NOTE | 2022-12-18 15:34 | XRAY Report ---
PROCEDURE: Ankle 3 View RT INDICATIONS: pain TECHNIQUE: 3 views of the ankle were acquired. COMPARISON: Right ankle radiographs 04/04/2020 FINDINGS: Bones: Mildly displaced fracture of the distal fibular metaphysis extending into the mortise joint. A nkle mortise is normally aligned. Small minimally displaced fracture of the anterior process of the c alcaneus. No suspicious bony lesions. Small plantar calcaneal enthesophyte. Soft tissues: Mild soft tissue edema. IMPRESSION: 1.Mildly displaced oblique intra-articular fracture of the lateral malleolus. 2.Small minimally displaced fracture of the anterior process of the calcaneus. Reviewed by: Miguel Uribe MD on 12/18/2022 3:33 PM PST Approved by: Miguel Uribe MD on 12/18/2022 3:33 PM [facility] Station ID: [id number]
--- NOTE | 2022-12-18 15:36 | XRAY Report ---
PROCEDURE: Foot 3 View RT INDICATIONS: pain TECHNIQUE: 3 views of the foot were acquired. COMPARISON: Right ankle radiographs 04/04/2020 FINDINGS: Bones: Mildly displaced intra-articular fracture of the fifth proximal phalangeal head is seen. There is a small minimally displaced fracture of the anterior process of the calcaneus. Small plantar calc aneal enthesophyte. Oblique fracture of the lateral malleolus is seen with mild displacement. No susp icious bony lesions. Soft tissues: Soft tissue edema is noted. IMPRESSION: 1.Mildly displaced intra-articular fracture of the fifth proximal phalangeal head. 2.Small minimally displaced fracture at the anterior process of the calcaneus. 3.Oblique fracture of the lateral malleolus with mild displacement. Reviewed by: Miguel Uribe MD on 12/18/2022 3:35 PM PST Approved by: Miguel Uribe MD on 12/18/2022 3:35 PM PST Station ID: [id number]
--- NOTE | 2022-12-18 15:37 | XRAY Report ---
PROCEDURE: Tib/Fib RT INDICATIONS: pain TECHNIQUE: 2 views of the tibia and fibula were acquired. COMPARISON: Right ankle radiographs 04/04/2020 FINDINGS: Bones: Mildly displaced oblique fracture of the distal fibular metaphysis. No tibial fracture is seen . No suspicious bony lesions. Soft tissues: No suspicious soft tissue calcifications or masses. IMPRESSION: Mildly displaced oblique fracture of the lateral malleolus. Reviewed by: Miguel Uribe MD on 12/18/2022 3:36 PM PST Approved by: Miguel Uribe MD on 12/18/2022 3:36 PM PST Station ID: [id number]
== END 2022-12-18 15:21 | disposition home or self-care (01) ==
LOC: ED 13:28
DX: F17.200 Nicotine dependence, unspecified, uncomplicated (principal); S82.61XA Displaced fracture of lateral malleolus of right fibula, initial encounter for closed fracture; S92.511A Displaced fracture of proximal phalanx of right lesser toe(s), initial encounter for closed fracture; W18.30XA Fall on same level, unspecified, initial encounter; X50.1XXA Overexertion from prolonged static or awkward postures, initial encounter; Y92.009 Unspecified place in unspecified non-institutional (private) residence as the place of occurrence of the external cause
CPT/HCPCS: 73590; 73610; 73630; 99283; 99284; A9270

== ENCOUNTER → 2022-12-26 10:18 | Outpatient (CLI) | payer MEDICARE, MEDICAID ==
--- NOTE | 2022-12-26 17:26 | XRAY Report ---
PROCEDURE: Ankle 3 View RT INDICATIONS: RIGHT ANKLE FRACTURE TECHNIQUE: 3 views of the ankle were acquired. COMPARISON: XR ankle and foot 12/18/2022 FINDINGS: Bones: Previous identified mildly displaced distal fibular metaphyseal fracture is again identified. Fracture lucency extends to the ankle mortise joint. There is normal alignment at the ankle mortise. Minimally displaced fracture of the anterior calcaneal process is also present. Calcaneal spur is pre sent. Overall, alignment is stable compared to prior exam. Ankle mortise is normally aligned. No heriberto picious bony lesions. Soft tissues: No tibiotalar joint effusion. Achilles tendon appears normal. IMPRESSION: Stable alignment and appearance of displaced intra-articular fracture of the lateral malleolus. Minimally displaced fracture of the anterior calcaneal process. Reviewed by: Brina Sauceda MD on 12/26/2022 4:40 PM PST Approved by: Brina Sauceda MD on 12/26/2022 4:40 PM PST Station ID: [id number]
--- NOTE | 2022-12-26 17:26 | XRAY Report ---
PROCEDURE: Foot 3 View RT INDICATIONS: RIGHT FOOT FRACTURE TECHNIQUE: 3 views of the foot were acquired. COMPARISON: XR ankle and foot 12/18/2022 FINDINGS: Bones: Previous identified mildly displaced distal fibular metaphyseal fracture is again identified. Fracture lucency extends to the ankle mortise joint. There is normal alignment at the ankle mortise. Minimally displaced fracture of the anterior calcaneal process is also present. Minimally displaced i ntra-articular proximal fifth phalanx fracture. Calcaneal spur is present. Overall, alignment is stab le compared to prior exam. Ankle mortise is normally aligned. No suspicious bony lesions. Soft tissues: No tibiotalar joint effusion. Achilles tendon appears normal. IMPRESSION: Stable alignment and appearance of displaced intra-articular fracture of the lateral malleolus. Minimally displaced fracture of the anterior calcaneal process. Stable alignment of intra-articular proximal fifth phalanx fracture. Reviewed by: Brina Sauceda MD on 12/26/2022 4:42 PM PST Approved by: Brina Sauceda MD on 12/26/2022 4:42 PM [facility] Station ID: [id number]
== END | disposition home or self-care (01) ==
LOC: DI.WOS 10:18
PROVIDERS: ATTEND Orthopaedic Surgery
DX: S82.61XD Displaced fracture of lateral malleolus of right fibula, subsequent encounter for closed fracture with routine healing (principal); S92.511D Displaced fracture of proximal phalanx of right lesser toe(s), subsequent encounter for fracture with routine healing; S92.021A Displaced fracture of anterior process of right calcaneus, initial encounter for closed fracture

== ENCOUNTER 2023-01-14 11:03 | Emergency (ER) | payer MEDICARE, MEDICAID ==
--- OUTSIDE RECORDS SUMMARY | 2023-01-14 11:27 | EXTERNAL MEDICAL SUMMARY RPT | Continuity of Care Document ---
:1970 Author Organization [facility] Address [address] [place] [address] Phone Care Team Providers Name Role Phone Jose Ramon Hodges Unavailable Unavailable Allergies No information. Encounters No information. Functional Status No information. Immunizations No information. Medications date description facility 2022-10-16 00:00 [facility] 2022-10-21 00:00 [facility] 2022-10-31 00:00 [facility] 2022-11-19 00:00 [facility] 2022-11-20 00:00 [facility] 2022-12-17 00:00 [facility] 2022-12-26 00:00 Dextroamphetamine-Amphetamine [facility]spital Problems No information. Procedures No information. Results/Labs No information. Social History date description facility 2022-10-16 00:00 Smokes tobacco daily (finding) [facility] 2022-10-21 00:00 Smokes tobacco daily (finding) [facility] 2022-11-21 00:00 Smokes tobacco daily (finding) [facility] 2022-12-26 00:00 Smokes tobacco daily (finding) [facility] Vital Signs No information.
[2023-01-14] MEDS ORDERED: HYDROmorphone 1 MG/ML CARPUJECT IVP STA (11:39)
[2023-01-14] MEDS ORDERED: SODIUM CHLORIDE 0.9% 1,000 ML IV STA (11:39)
[2023-01-14] MEDS ORDERED: ONDANSETRON ODT 4 MG TABLET TL STA (11:39)
[2023-01-14] MEDS ORDERED: LORazepam 2 MG/ML VIAL IM STA (11:55)
[2023-01-14] MEDS ORDERED: HYDROmorphone 1 MG/ML CARPUJECT IM STA ×2 (11:55→14:38)
--- NOTE | 2023-01-14 11:58 | ED Physician Documentation ---
PD HPI ABD PAIN - Stated complaint Stated Complaint: ABD PX/VOMITING - Chief complaint Chief Complaint: Abd Pain - History obtained from History obtained from: Patient - Additional information Additional information: The patient comes to the emergency department with chief complaint of upper abdominal pain, nausea, vomiting, and diarrhea that started last night. She states it had been her birthday and she was out with some friends and had a few drinks. She states she does not feel that she drank excessively, but later yesterday evening, she began to have nausea which progressed to vomiting thro ughout the night. She states that she has not been able to hold the water down and feels very dehydrated. She denies fevers. She has had chills. No dysuria or respiratory symptoms. She has a history of cancer and states her help was never quite completely recovered since. However, she is in remission and no longer requires treatment. No other complaints at this time. She does have a history of pancreatitis in the distant past. 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 : None HEENT: None Psych: Depression, Anxiety, Other Derm: None - Past Surgical History Past Surgical History: Yes General: Gastric surgery Ortho: Other /BENCH WORKER HELPER: Mastectomy, Other - Present Medications Home Medications: Ambulatory Orders Medication Instructions Recorded Confirmed Duloxetine HCl [Cymbalta] 60 mg PO DAILY 11/17/16 12/18/22 Trazodone HCl 50 mg PO QPM 09/26/19 09/10/22 lamoTRIgine [Lamictal] 200 mg PO DAILY 09/26/19 12/18/22 Alprazolam [Xanax] 1 mg PO DAILY PRN 12/01/21 09/10/22 Buprenorphine HCl/Naloxone HCl 1 each SL DAILY 09/10/22 09/10/22 [Suboxone 8 mg-2 mg Sl Film] Alprazolam [Xanax] 1 mg PO BID 5 Days #10 tablet 10/13/22 12/18/22 Buprenorphine HCl/Naloxone HCl 1 each SL BID 5 Days #10 film 10/13/22 [Suboxone 4 mg-1 mg Sl Film] PHENobarbitaL [Phenobarbital] 30 mg PO BID 6 Days #9 tablet 10/13/22 Oxycodone HCl/Acetaminophen 1 each PO Q6H PRN #14 tablet 12/18/22 [Percocet 5-325 mg Tablet] HYDROcod/ACETAM 5/325 [Whiting 5/325] 1 - 2 tablet PO Q6H PRN #14 tablet 01/14/23 Ondansetron Odt [Zofran] 4 mg TL Q6H PRN #10 tablet 01/14/23 - Allergies Allergies/Adverse Reactions: Allergies Allergy/AdvReac Type Severity Reaction Status Date / Time ketorolac tromethamine * Allergy Edema Verified 01/14/23 11:18 [From Toradol] morphine Allergy Itching Verified 01/14/23 11:18 lorazepam [From Ativan] AdvReac Dizziness Verified 01/14/23 11:18 tramadol AdvReac Itching Verified 01/14/23 11:18 - Social History Does the pt smoke?: Yes Smoking Status: Current every day smoker Does the pt drink ETOH?: Yes Does the pt have substance abuse?: No - Immunizations Immunizations are current?: No Immunizations: Other immun not current - POLST Patient has POLST: No POLST Status: Full Code PD ED PE NORMAL - Vitals Vital signs reviewed: Yes - General General: Alert and oriented X 3, No acute distress, Well developed/nourished, Other (The patient looks moderately uncomfortable, but otherwise in no apparent distress.) - HEENT HEENT: Atraumatic, PERRL, EOMI, Moist mucous membranes - Neck Neck: Supple, no meningeal sign - Cardiac Cardiac: RRR, No murmur - Respiratory Respiratory: No respiratory distress, Clear bilaterally - Abdomen Abdomen: Soft, Non distended, Other (Moderate upper abdominal tenderness, no rebound or guarding.) - Derm Derm: Normal color, Warm and dry, No rash - Extremities Extremities: No deformity, No edema - Neuro Neuro: Alert and oriented X 3 - Psych Psych: Normal mood, Normal affect Results - Vitals Vitals: Oxygen O2 Source Room air - Labs Labs: Laboratory Tests 01/14/23 01/14/23 12:52 12:52 WBC 10.5 RBC 4.72 Hgb 14.7 Hct 41.7 MCV 88.3 MCH 31.1 H MCHC 35.3 RDW 12.8 Plt Count 359 MPV 8.6 Neut # (Auto) 7.5 H Lymph # (Auto) 2.0 Clark # (Auto) 0.9 Eos # (Auto) 0.0 Baso # (Auto) 0.1 Absolute Nucleated RBC 0.00 Nucleated RBC % 0.0 Sodium 134 L Potassium 3.5 Chloride 98 L Carbon Dioxide 21 Anion Gap 15.0 H BUN 14 Creatinine 1.0 Estimated GFR (MDRD) 58 L Glucose 74 Calcium 9.6 Total Bilirubin 0.8 AST 25 ALT 18 Alkaline Phosphatase 71 Total Protein 8.2 Albumin 4.5 Globulin 3.7 Albumin/Globulin Ratio 1.2 Lipase 56 H Ethyl Alcohol < 5.0 PD Medical Decision Making - ED course Complexity details: reviewed results, re-evaluated patient, considered differential, d/w patient ED course: The pt did not have an acute abdomen, and was tender mainly over her stomach and superior epigastrium. I did not feel imaging was indicated unless labs were significantly abnormal. The pt had extremely difficult peripheral access, and finally opted for IM/ODT meds and lab draw. Labs were unremarkable by my review, including CBC and ER abdominal panel. Pt was feeling much better, and was able to drink 900 cc of water in the ED without further vomiting. I have prescribed antiemetics. We have discussed home management of the sx, as well as the usual indications for return. Departure - Departure Disposition: 01 Home, Self Care Clinical Impression: Gastroenteritis Abdominal pain Qualifiers: Abdominal location: upper abdomen, unspecified Qualified Code(s): R10.10 - Upper abdominal pain, unspecified Condition: Stable Instructions: ED Abdominal Pain Female Non-Specific Abdominal Pain, ED Gastroenteritis Viral Prescriptions: HYDROcod/ACETAM 5/325 [Whiting 5/325] 1 - 2 tablet PO Q6H PRN #14 tablet PRN Reason: Pain Ondansetron Odt [Zofran] 4 mg TL Q6H PRN #10 tablet PRN Reason: Nausea / Vomiting Comments: Your labs overall look good. You do not have an elevated white blood cell count and your liver and pancreatic labs look fairly good. You do not have fevers and your Tenderness is confined to the upper abdomen. You are passing stools well and there is no evidence of a surgical issue at this time. As such, there is no indication for CT at this time. Please follow-up with your primary doctor for further concerns regarding ongoing issues. If your pain escalates or you develop a fever, then please return to the emergency department. Please excelsior picker the medicine for pain and nausea at the pharmacy. Your prescriptions have been electronically transmitted to the [facility] pharmacy in [place], your pharmacy of choice on record. Discharge Date/Time: 01/14/23 15:35
[2023-01-14] MEDS ORDERED: ALPRAZolam 0.25 MG TABLET PO STA (12:37)
[2023-01-14 12:57] LABS: BASOPHILS # (AUTO) 0.1 10^3/uL (0.0-0.1); BASOPHILS % (AUTO) 0.6 %; EOSINOPHILS % (AUTO) 0.1 %; HCT - HEMATOCRIT 41.7 % (37.0-47.0); HGB - HEMOGLOBIN 14.7 g/dL (12.0-16.0); LYMPHOCYTES % (AUTO) 18.8 %; MEAN CORPUSCULAR HEMOGLOBIN 31.1 pg (27.0-31.0); MEAN CORPUSCULAR HGB CONC 35.3 g/dL (32.0-36.0); MEAN CORPUSCULAR VOLUME 88.3 fL (81.0-99.0); MEAN PLATELET VOLUME 8.6 fL (7.9-10.8); MONOCYTES # (AUTO) 0.9 10^3/uL (0.0-1.0); MONOCYTES % (AUTO) 8.1 %; NEUTROPHILS # (AUTO) 7.5 10^3/uL (1.5-6.6); NEUTROPHILS % (AUTO) 71.4 %; PLT - PLATELET COUNT 359 10^3/uL (130-450); RED BLOOD COUNT 4.72 10^6/uL (4.20-5.40); RED CELL DISTRIBUTION WIDTH 12.8 % (12.0-15.0); WHITE BLOOD COUNT 10.5 x10^3/uL (4.8-10.8)
[2023-01-14 13:12] LABS: ALBUMIN 4.5 g/dL (3.2-5.5); ALBUMIN/GLOBULIN RATIO 1.2 (1.0-2.2); ALKALINE PHOSPHATASE 71 IU/L (42-121); ALT ALANINE AMINOTRANSFERASE 18 IU/L (10-60); AST ASPARTATE AMINOTRANSFERASE 25 IU/L (10-42); BILIRUBIN,TOTAL 0.8 mg/dL (0.2-1.0); BUN - BLOOD UREA NITROGEN 14 mg/dL (6-20); CALCIUM 9.6 mg/dL (8.5-10.3); CARBON DIOXIDE - CO2 21 mmol/L (21-32); CHLORIDE 98 mmol/L (101-111); ETOH - ETHANOL < 5.0 mg/dL; GFR - MDRD 58 (>89); GLUCOSE 74 mg/dL (70-100); LIPASE 56 U/L (22-51); POTASSIUM 3.5 mmol/L (3.5-5.0); SODIUM 134 mmol/L (135-145); TOTAL PROTEIN 8.2 g/dL (6.7-8.2)
[2023-01-14 14:49] VITALS: BP 125/76
== END 2023-01-14 15:35 | disposition home or self-care (01) ==
LOC: ED 11:03
DX: K52.9 Noninfective gastroenteritis and colitis, unspecified (principal); F17.200 Nicotine dependence, unspecified, uncomplicated
CPT/HCPCS: 36415; 80053; 83690; 85025; 96372; 96374; 96376; 99284; A9270; G0480; J1170; Q0162; 80320

== ENCOUNTER 2023-01-25 14:04 | Emergency (ER) | payer MEDICARE, MEDICAID ==
[2023-01-25] MEDS ORDERED: BUPRENORPHINE/NALOXONE 8-2 MG TAB SL STA (14:40)
[2023-01-25] MEDS ORDERED: clonazePAM 0.5 MG TABLET PO STA (14:40)
[2023-01-25] MEDS ORDERED: SODIUM CHLORIDE 0.9% 1,000 ML IV STA (14:40)
--- NOTE | 2023-01-25 14:43 | ED Physician Documentation ---
History of Present Illness - Stated complaint Stated Complaint: VOMITING/SHAKING - Chief complaint Chief Complaint: General - History obtained from History obtained from: Patient - Additonal information Additional information: 53-year-old woman with chronic dependence on benzodiazepines and Suboxone. She ran out of her Suboxone about 2 weeks ago, she could not get up to [place] for follow-up visits because her car broke down. More recently she had increased anxiety and a lot of social stressors. On , 2 days ago she took 3 x 1 mg Xanax. She states she just wanted to sleep. There is no SI or HI. Because she had run out of her medication she called her doctor, Dr. Hodges in [place] who prescribed her 30 x 1 mg Klonopin which she took all of yesterday. She is feeling very shaky and nauseous now. She passed out today and hit the back of her head and now has a significant headache. No other injuries. PD PAST MEDICAL HISTORY - Past Medical History Cardiovascular: Hypertension, Pulmonary embolism Respiratory: None Neuro: Headaches Endocrine/Autoimmune: None GI: Hepatitis, Diverticulitis GEOPHYSICAL E LOGGER: Breast cancer : None HEENT: None Psych: Depression, Anxiety, Other Derm: None - Past Surgical History Past Surgical History: Yes General: Gastric surgery Ortho: Other /GEOPHYSICAL E LOGGER: Mastectomy, Other - Present Medications Home Medications: Ambulatory Orders Medication Instructions Recorded Confirmed Duloxetine HCl [Cymbalta] 60 mg PO DAILY 11/17/16 12/18/22 Trazodone HCl 50 mg PO QPM 09/26/19 09/10/22 lamoTRIgine [Lamictal] 200 mg PO DAILY 09/26/19 12/18/22 Alprazolam [Xanax] 1 mg PO DAILY PRN 12/01/21 09/10/22 Buprenorphine HCl/Naloxone HCl 1 each SL DAILY 09/10/22 09/10/22 [Suboxone 8 mg-2 mg Sl Film] Alprazolam [Xanax] 1 mg PO BID 5 Days #10 tablet 10/13/22 12/18/22 Buprenorphine HCl/Naloxone HCl 1 each SL BID 5 Days #10 film 10/13/22 [Suboxone 4 mg-1 mg Sl Film] PHENobarbitaL [Phenobarbital] 30 mg PO BID 6 Days #9 tablet 10/13/22 Oxycodone HCl/Acetaminophen 1 each PO Q6H PRN #14 tablet 12/18/22 [Percocet 5-325 mg Tablet] HYDROcod/ACETAM 5/325 [[place] 5/325] 1 - 2 tablet PO Q6H PRN #14 tablet 01/14/23 Ondansetron Odt [Zofran] 4 mg TL Q6H PRN #10 tablet 01/14/23 Alprazolam [Xanax] 1 mg PO BID #4 tablet 01/25/23 - Allergies Allergies/Adverse Reactions: Allergies Allergy/AdvReac Type Severity Reaction Status Date / Time ketorolac tromethamine * Allergy Edema Verified 01/14/23 11:18 [From Toradol] morphine Allergy Itching Verified 01/25/23 14:30 lorazepam [From Ativan] AdvReac Dizziness Verified 01/25/23 14:30 tramadol AdvReac Itching Verified 01/25/23 14:30 - Social History Does the pt smoke?: Yes Smoking Status: Current every day smoker Does the pt drink ETOH?: Yes Does the pt have substance abuse?: No - Immunizations Immunizations are current?: No Immunizations: Other immun not current - POLST Patient has POLST: No POLST Status: Full Code PD ED PE NORMAL - Vitals Vital signs reviewed: Yes - General General: Alert and oriented X 3, Other (Tearful, tachycardic, alert and oriented though.) - HEENT HEENT: PERRL, EOMI - Neck Neck: Supple, no meningeal sign, No bony TTP - Cardiac Cardiac: Other (Tachycardic but regular without murmur) - Respiratory Respiratory: No respiratory distress, Clear bilaterally - Abdomen Abdomen: Non tender - Back Back: No CVA TTP, No spinal TTP - Derm Derm: Normal color, Warm and dry - Neuro Neuro: Alert and oriented X 3, Normal speech Eye Opening: Spontaneous Motor: Obeys Commands Verbal: Oriented GCS Score: 15 Results - Vitals Vitals: Vital Signs - 24 hr 01/25/23 01/25/23 01/25/23 14:22 14:59 15:25 Temperature 36.2 C L Heart Rate 120 H 107 H 107 H Respiratory 20 16 15 Rate Blood Pressure 149/110 H 210/105 H O2 Saturation 100 100 100 01/25/23 16:00 Temperature Heart Rate 101 H Respiratory 14 Rate Blood Pressure O2 Saturation 98 Oxygen O2 Source Room air - Labs Labs: Laboratory Tests 01/25/23 01/25/23 01/25/23 15:08 15:20 15:20 WBC 5.8 RBC 4.32 Hgb 13.2 Hct 39.8 MCV 92.1 MCH 30.6 MCHC 33.2 RDW 12.9 Plt Count 423 MPV 8.7 Neut # (Auto) 3.7 Lymph # (Auto) 1.6 [place] # (Auto) 0.4 Eos # (Auto) 0.1 Baso # (Auto) 0.0 Absolute Nucleated RBC 0.00 Nucleated RBC % 0.0 Sodium 140 Potassium 3.8 Chloride 106 Carbon Dioxide 25 Anion Gap 9.0 BUN 9 Creatinine 1.2 H Estimated GFR (MDRD) 47 L Glucose 87 Calcium 9.6 TSH Salicylates < 6.0 Acetaminophen < 10 L Ethyl Alcohol 8.3 SARS-CoV-2 (PCR) NOT DETECTED 01/25/23 15:20 WBC RBC Hgb Hct MCV MCH MCHC RDW Plt Count MPV Neut # (Auto) Lymph # (Auto) [place] # (Auto) Eos # (Auto) Baso # (Auto) Absolute Nucleated RBC Nucleated RBC % Sodium Potassium Chloride Carbon Dioxide Anion Gap BUN Creatinine Estimated GFR (MDRD) Glucose Calcium TSH 0.31 L Salicylates Acetaminophen Ethyl Alcohol SARS-CoV-2 (PCR) - Rads (name of study) Head ct Relevant Findings:: Final report received, EMP independent interpretation of test Procedures - General procedure General procedure: Difficult for IV access: 22g long IV Placed in the left cephalic vein using real-time ultrasound guidance with ChloraPrep that cindi and flushed well. PD Medical Decision Making - ED course ED course: 53-year-old woman has been overusing her benzodiazepines as she has run out of her Suboxone. There is no SI or HI. She declined inpatient detox or to talk to the social services coordinator. I made it very clear and set expectations that I would not be willing to prescribe any significant number of benzodiazepines after discharge and she is understanding. She would like to get off the benzodiazepines and I discussed with her that that should be a gradual process undertaken with her primary prescriber. 53-year-old woman presents after a benzodiazepine overdose related to a lot of stress. No SI or HI. Feeling better after medications here. She did hit her head, and a head CT was done without pertinent positive findings. Unfortunately she had arrived too late in the day to see the social services coordinator who would left at 1 PM. She would like to go home. I offered a prescription for for Xanax to get her through until Friday when she can talk to her doctor. Departure - Departure Disposition: Home, Self Care Clinical Impression: Benzodiazepine dependence Head injury Qualifiers: Encounter type: initial encounter Qualified Code(s): S09.90XA - Unspecified injury of head, initial encounter Condition: Good Record reviewed to determine appropriate education?: Yes Instructions: ED Drug Abuse General Prescriptions: Alprazolam [Xanax] 1 mg PO BID #4 tablet Comments: I sent a prescription for for Xanax to [facility] in [place]. As discussed you need to talk with Dr. Hodges on Friday and come up with a plan for what you are going to do about your meds going forward. Return for new or worsening symptoms. No driving today.
--- OUTSIDE RECORDS SUMMARY | 2023-01-25 14:45 | EXTERNAL MEDICAL SUMMARY RPT | Continuity of Care Document ---
:1970 Author Organization [facility] Address [address] [place] [address] Phone Care Team Providers Name Role Phone Carroll Jose Ramon Unavailable Unavailable Allergies No information. Encounters No information. Functional Status No information. Immunizations No information. Medications date description facility 2022-10-31 00:00 [facility] 2022-11-19 00:00 [facility] 2022-11-20 00:00 [facility] 2022-12-17 00:00 [facility] 2023-01-14 00:00 [facility] 2023-01-23 00:00 Clonazepam [facility] 2022-12-26 00:00 Dextroamphetamine-Amphetamine [facility] ospital Problems No information. Procedures No information. Results/Labs No information. Social History date description facility 2022-11-21 00:00 Smokes tobacco daily (finding) [facility] 2022-12-26 00:00 Smokes tobacco daily (finding) [facility] 2023-01-23 00:00 Smokes tobacco daily (finding) [facility] Vital Signs No information.
[2023-01-25] MEDS ORDERED: HYDROmorphone 1 MG/ML CARPUJECT IVP STA (15:19)
[2023-01-25 15:29] LABS: BASOPHILS % (AUTO) 0.5 %; EOSINOPHILS # (AUTO) 0.1 10^3/uL (0.0-0.7); EOSINOPHILS % (AUTO) 1.2 %; HCT - HEMATOCRIT 39.8 % (37.0-47.0); HGB - HEMOGLOBIN 13.2 g/dL (12.0-16.0); LYMPHOCYTES # (AUTO) 1.6 10^3/uL (1.5-3.5); LYMPHOCYTES % (AUTO) 27.4 %; MEAN CORPUSCULAR HEMOGLOBIN 30.6 pg (27.0-31.0); MEAN CORPUSCULAR HGB CONC 33.2 g/dL (32.0-36.0); MEAN CORPUSCULAR VOLUME 92.1 fL (81.0-99.0); MEAN PLATELET VOLUME 8.7 fL (7.9-10.8); MONOCYTES # (AUTO) 0.4 10^3/uL (0.0-1.0); MONOCYTES % (AUTO) 6.4 %; NEUTROPHILS # (AUTO) 3.7 10^3/uL (1.5-6.6); NEUTROPHILS % (AUTO) 64.2 %; PLT - PLATELET COUNT 423 10^3/uL (130-450); RED BLOOD COUNT 4.32 10^6/uL (4.20-5.40); RED CELL DISTRIBUTION WIDTH 12.9 % (12.0-15.0); WHITE BLOOD COUNT 5.8 x10^3/uL (4.8-10.8)
[2023-01-25 15:51] LABS: ACETAMINOPHEN < 10 ug/mL (10-30); BUN - BLOOD UREA NITROGEN 9 mg/dL (6-20); CALCIUM 9.6 mg/dL (8.5-10.3); CARBON DIOXIDE - CO2 25 mmol/L (21-32); CHLORIDE 106 mmol/L (101-111); CREATININE 1.2 mg/dL (0.4-1.0); ETOH - ETHANOL 8.3 mg/dL; GFR - MDRD 47 (>89); GLUCOSE 87 mg/dL (70-100); POTASSIUM 3.8 mmol/L (3.5-5.0); SALICYLATE < 6.0 mg/dL; SODIUM 140 mmol/L (135-145)
--- NOTE | 2023-01-25 16:17 | CT Report ---
PROCEDURE: HEAD WO INDICATIONS: Head injury TECHNIQUE: Noncontrast 4.5 mm thick angled axial sections acquired from the foramen magnum to the vertex. For r adiation dose reduction, the following was used: automated exposure control, adjustment of mA and/or kV according to patient size. COMPARISON: None. FINDINGS: Image quality: Excellent. CSF spaces: Basal cisterns are patent. No extra-axial fluid collections. Ventricles are normal in size and shape. Brain: No midline shift. No intracranial masses or hemorrhage. Hernandez-white matter interface is norm al. Skull and face: Calvarium and visualized facial bones are intact, without suspicious lesions. Sinuses: Visualized sinuses and mastoids are clear. IMPRESSION: No acute intracranial abnormality Reviewed by: Pepe Liriano on 01/25/2023 3:[address] [facility] Approved by: Pepe Liriano on 01/25/2023 3:[address] [facility] Station ID: [id number]
[2023-01-25] MEDS ORDERED: HYDROmorphone 1 MG/ML CARPUJECT IM STA (16:29)
[2023-01-25 16:31] VITALS: BP 164/114
== END 2023-01-25 17:21 | disposition home or self-care (01) ==
LOC: ED 14:04
DX: R11.0 Nausea (principal); R25.1 Tremor, unspecified; T42.4X2A Poisoning by benzodiazepines, intentional self-harm, initial encounter; R55 Syncope and collapse; S09.90XA Unspecified injury of head, initial encounter; W19.XXXA Unspecified fall, initial encounter; F17.200 Nicotine dependence, unspecified, uncomplicated
CPT/HCPCS: 36415; 70450; 80048; 80307; 84443; 85025; 87635; 96361; 96372; 96374; 99284; A9270; G0480; J1170; 80320; 80329

== ENCOUNTER 2023-01-27 17:28 | Emergency (ER) | payer MEDICARE, MEDICAID ==
--- OUTSIDE RECORDS SUMMARY | 2023-01-27 17:44 | EXTERNAL MEDICAL SUMMARY RPT | Continuity of Care Document ---
:1970 Author Organization [facility] Address [address] [place] [address] Phone Care Team Providers Name Role Phone Carroll Jose Ramon Unavailable Unavailable Allergies No information. Encounters No information. Functional Status No information. Immunizations No information. Medications date description facility 2022-10-31 00:00 [facility] 2022-11-19 00:00 [facility] 2022-11-20 00:00 [facility] 2022-12-17 00:00 [facility] 2023-01-14 00:00 [facility] 2023-01-23 00:00 Clonazepam [facility] 2022-12-26 00:00 Dextroamphetamine-Amphetamine [facility] ospital Problems No information. Procedures No information. Results/Labs No information. Social History date description facility 2022-11-21 00:00 Smokes tobacco daily (finding) [facility] 2022-12-26 00:00 Smokes tobacco daily (finding) [facility] 2023-01-23 00:00 Smokes tobacco daily (finding) [facility] Vital Signs No information.
[2023-01-27] MEDS ORDERED: oxyCODONE 5 MG TABLET PO STA (18:06)
[2023-01-27] MEDS ORDERED: IBUPROFEN 800 MG TABLET PO STA (18:06)
--- NOTE | 2023-01-27 18:07 | ED Physician Documentation ---
PD HPI LOWER EXT INJURY - Stated complaint Stated Complaint: R LEG/ANKLE INJ - Chief complaint Chief Complaint: Trauma Ext - History obtained from History obtained from: Patient - Additional information Additional information: 53-year-old woman with recent right ankle fracture. Seen over the weekend after benzodiazepine overdose and reportedly she has spoken with her physician today about some sort of taper. She was getting out of the shower today and fell and twisted both ankles with increased pain especially on the right. No other injuries. 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 : None HEENT: None Psych: Depression, Anxiety, Other Derm: None - Past Surgical History Past Surgical History: Yes General: Gastric surgery Ortho: Other /ENGINEERING TEST MECHANIC: Mastectomy, Other - Present Medications Home Medications: Ambulatory Orders Medication Instructions Recorded Confirmed Duloxetine HCl [Cymbalta] 60 mg PO DAILY 11/17/16 12/18/22 Trazodone HCl 50 mg PO QPM 09/26/19 09/10/22 lamoTRIgine [Lamictal] 200 mg PO DAILY 09/26/19 12/18/22 Alprazolam [Xanax] 1 mg PO DAILY PRN 12/01/21 09/10/22 Buprenorphine HCl/Naloxone HCl 1 each SL DAILY 09/10/22 09/10/22 [Suboxone 8 mg-2 mg Sl Film] Alprazolam [Xanax] 1 mg PO BID 5 Days #10 tablet 10/13/22 12/18/22 Buprenorphine HCl/Naloxone HCl 1 each SL BID 5 Days #10 film 10/13/22 [Suboxone 4 mg-1 mg Sl Film] PHENobarbitaL [Phenobarbital] 30 mg PO BID 6 Days #9 tablet 10/13/22 Oxycodone HCl/Acetaminophen 1 each PO Q6H PRN #14 tablet 12/18/22 [Percocet 5-325 mg Tablet] HYDROcod/ACETAM 5/325 [[place] 5/325] 1 - 2 tablet PO Q6H PRN #14 tablet 01/14/23 Ondansetron Odt [Zofran] 4 mg TL Q6H PRN #10 tablet 01/14/23 Alprazolam [Xanax] 1 mg PO BID #4 tablet 01/25/23 - Allergies Allergies/Adverse Reactions: Allergies Allergy/AdvReac Type Severity Reaction Status Date / Time ketorolac tromethamine * Allergy Edema Verified 01/27/23 17:38 [From Toradol] morphine Allergy Itching Verified 01/27/23 17:38 lorazepam [From Ativan] AdvReac Dizziness Verified 01/27/23 17:38 tramadol AdvReac Itching Verified 01/27/23 17:38 - Social History Does the pt smoke?: Yes Smoking Status: Current every day smoker Does the pt drink ETOH?: Yes Does the pt have substance abuse?: No - Immunizations Immunizations are current?: No Immunizations: Other immun not current - POLST Patient has POLST: No POLST Status: Full Code PD ED PE NORMAL - Vitals Vital signs reviewed: Yes - General General: Alert and oriented X 3, No acute distress - Back Back: No CVA TTP, No spinal TTP - Derm Derm: Normal color, Warm and dry - Extremities Extremities: Other (Tender over the lateral malleolus of the right ankle, mild tenderness about the left ankle. No deformities.) - Neuro Neuro: Alert and oriented X 3, Normal speech Results - Vitals Vitals: Vital Signs - 24 hr 01/27/23 17:31 Temperature 37.1 C Heart Rate 122 H Respiratory 20 Rate Blood Pressure 160/105 H O2 Saturation 98 Oxygen O2 Source Room air - Rads (name of study) Bilateral ankle x-rays demonstrate evidence of healing of old right distal fibular fracture, no new injuries. Relevant Findings:: Final report received, EMP independent interpretation of test PD Medical Decision Making - ED course ED course: 53-year-old woman has reinjured her ankle and injured the left one now. X-rays showed no new findings. She wanted something for pain and anxiety. She was seen over the weekend overAfter an overdose. I discussed with her that I would not be willing to provide any prescriptions for more controlled substances. She declined nonnarcotic pain medication. Departure - Departure Disposition: 01 Home, Self Care Clinical Impression: Closed fracture of right distal fibula, Benzodiazepine dependence, Ankle injury Condition: Good Record reviewed to determine appropriate education?: Yes Instructions: ED Sprain Ankle W X Ray Comments: Your x-rays continue to show signs of healing, no worsening of the fracture in your right ankle. No new fractures. As discussed, you need to follow-up with your psychiatrist if you want to get off the benzodiazepines. Call his office tomorrow for help with that.
--- NOTE | 2023-01-27 18:09 | XRAY Report ---
PROCEDURE: Ankle 3 View BILAT INDICATIONS: B ankle inj TECHNIQUE: 3 views of the ankle were acquired. COMPARISON: Right ankle radiograph dated 12/26/2022 FINDINGS: Bones: There is interval further healing at right lateral malleolus fracture site with increased scle rosis and partial bony union. No new fracture or dislocation is seen in right ankle. No left ankle fr acture or dislocation. Well-defined bilateral plantar calcaneal enthesophytes are seen. Ankle mortise is normally aligned. No suspicious bony lesions. Soft tissues: No tibiotalar joint effusion. Achilles tendon appears normal. IMPRESSION: 1. Interval further healing at right malleolus/distal fibular shaft fracture site. Stable right ankle alignment. No new fracture or dislocation. 2. No left ankle fracture or dislocation. 3. Well-defined bilateral plantar calcaneal enthesophytes. Reviewed by: Satya Quintana MD on 01/27/2023 6:08 PM PDT Approved by: Satya Quintana MD on 01/27/2023 6:08 PM PDT Station ID: [id number]
[2023-01-27 19:10] VITALS: BP 150/118
== END 2023-01-27 19:10 | disposition home or self-care (01) ==
LOC: ED 17:28
DX: S82.831A Other fracture of upper and lower end of right fibula, initial encounter for closed fracture (principal); X50.1XXA Overexertion from prolonged static or awkward postures, initial encounter; F13.20 Sedative, hypnotic or anxiolytic dependence, uncomplicated; F17.200 Nicotine dependence, unspecified, uncomplicated
CPT/HCPCS: 73610; 99283; A9270

== ENCOUNTER 2023-01-28 14:10 | Outpatient (CLI) | payer MEDICARE, MEDICAID ==
--- NOTE | 2023-01-28 14:55 | XRAY Report ---
PROCEDURE: Foot 3 View RT INDICATIONS: Right toe fracture TECHNIQUE: Three views of the foot were acquired. COMPARISON: 12/26/2022 FINDINGS: Appearance and alignment of displaced intra-articular fracture of the lateral malleolus, with new quinn dging bony callus formation. Intra-articular proximal 5th phalanx fracture is also unchanged. Anterio r calcaneal process fracture is unchanged. No additional fracture identified. Small ankle joint effus ion. IMPRESSION: Lateral malleolus fracture with bridging bony callus formation having formed in the interval since pr ior study, alignment unchanged. 5th proximal phalangeal fracture is unchanged. Anterior calcaneal process fracture is unchanged. Reviewed by: Ronaldo Tim MD on 01/28/2023 2:54 PM PDT Approved by: Ronaldo Tim MD on 01/28/2023 2:54 PM PDT Station ID: [id number]
--- NOTE | 2023-01-28 14:57 | XRAY Report ---
PROCEDURE: Ankle 3 View RT INDICATIONS: RIGHT ANKLE FRACTURE TECHNIQUE: 3 views of the ankle were acquired. COMPARISON: 12/26/2022 FINDINGS: Previously identified fracture of the distal fibular metaphysis, extending into the syndesmosis and a nkle mortise, is unchanged in alignment. There is some bridging bony callus formation which has devel oped in the interval since prior study. Minimally displaced fracture of the anterior calcaneal process is unchanged. Minimally displaced intra-articular proximal 5th phalanx fracture is also unchanged. No new fracture identified. Small joint effusion. IMPRESSION: Stable alignment with bony bridging callus formation developing at the fibular fracture but not obvio usly at the remaining fractures. Reviewed by: Ronaldo Tim MD on 01/28/2023 2:56 PM PDT Approved by: Ronaldo Tim MD on 01/28/2023 2:56 PM PDT Station ID: [id number]
== END 2023-01-28 14:11 | disposition home or self-care (01) ==
LOC: DI.WOS 14:10
PROVIDERS: ATTEND Orthopaedic Surgery
DX: S82.61XD Displaced fracture of lateral malleolus of right fibula, subsequent encounter for closed fracture with routine healing (principal); S92.511D Displaced fracture of proximal phalanx of right lesser toe(s), subsequent encounter for fracture with routine healing; S92.001D Unspecified fracture of right calcaneus, subsequent encounter for fracture with routine healing; S82.831D Other fracture of upper and lower end of right fibula, subsequent encounter for closed fracture with routine healing

== ENCOUNTER 2023-02-27 08:00 | Outpatient (CLI) | payer MEDICARE, MEDICAID ==
--- NOTE | 2023-02-28 12:32 | XRAY Report ---
PROCEDURE: Ankle 2 View RT INDICATIONS: RIGHT ANKLE FRACTURE TECHNIQUE: 2 views of the ankle were acquired. COMPARISON: X-ray right ankle, 01/28/2023. FINDINGS: Bones: There is an oblique intra-articular fracture of the lateral malleolus. Slightly increased veronica delmy. Ankle mortise is normally aligned. No suspicious bony lesions. Soft tissues: No tibiotalar joint effusion. Achilles tendon appears normal. IMPRESSION: Healing lateral malleolar fracture. Reviewed by: Sara Pringle MD on 02/28/2023 12:31 PM PDT Approved by: Sara Pringle MD on 02/28/2023 12:31 PM PDT Station ID: [id number]
== END 2023-02-27 23:59 | disposition home or self-care (01) ==
LOC: DI.WOS 08:00
PROVIDERS: ATTEND Orthopaedic Surgery
DX: S82.64XA Nondisplaced fracture of lateral malleolus of right fibula, initial encounter for closed fracture (principal); S82.64XD Nondisplaced fracture of lateral malleolus of right fibula, subsequent encounter for closed fracture with routine healing

== ENCOUNTER 2023-07-18 09:59 | Emergency (ER) | payer MEDICAID, MEDICARE ==
--- NOTE | 2023-07-18 10:30 | ED Physician Documentation ---
PD HPI HEADACHE - Stated complaint Stated Complaint: DIZZINESS,MIGRAINE,VOMITING - Chief complaint Chief Complaint: Neuro - History obtained from History obtained from: Patient - History of Present Illness Timing - onset: Yesterday Timing - duration: Days (2) Timing - details: Gradual onset, Still present Worst headache ever?: No: Worst headache ever? (she states feels similar to prior occasional migraines. Has had aches, nausea, and feeling ill for 2-3 days.) Location: Front, Right Quality: Throbbing, Aching Associated symptoms: Fever, Nausea. No: Stiff neck, Vomiting, Weakness, Vision changes (but is light sensitive) Improved by: Dark room. No: Meds Worsened by: Light Contributing factors: Recent illness (currently with aches, nausea, feverish feeling and some congestion.). No: Anticoagulated, Hypertension, Trauma Recently seen: Not recently seen Review of Systems Constitutional: reports: Fever, Chills, Myalgias, Fatigue Eyes: reports: Photophobia. denies: Loss of vision Nose: reports: Congestion. denies: Rhinorrhea / runny nose Throat: denies: Sore throat Respiratory: denies: Cough GI: reports: Nausea. denies: Abdominal Pain, Diarrhea Neurologic: denies: Focal weakness, Numbness PD PAST MEDICAL HISTORY - Past Medical History Cardiovascular: Hypertension, Pulmonary embolism Respiratory: None Neuro: Headaches, Migraines Endocrine/Autoimmune: None GI: Hepatitis, Diverticulitis SKI MOLDER: Breast cancer : None HEENT: None Psych: Depression, Anxiety, Other Derm: None - Past Surgical History Past Surgical History: Yes General: Gastric surgery Ortho: Other /SKI MOLDER: Mastectomy, Other - Present Medications Home Medications: Ambulatory Orders Medication Instructions Recorded Confirmed Duloxetine HCl [Cymbalta] 60 mg PO DAILY 11/17/16 07/18/23 Trazodone HCl 50 mg PO QPM 09/26/19 07/18/23 lamoTRIgine [Lamictal] 200 mg PO DAILY 09/26/19 07/18/23 Buprenorphine HCl/Naloxone HCl 1 each SL DAILY 09/10/22 07/18/23 [Suboxone 8 mg-2 mg Sl Film] Buprenorphine HCl/Naloxone HCl 1 each SL BID 5 Days #10 film 10/13/22 07/18/23 [Suboxone 4 mg-1 mg Sl Film] Dextroamphetamine/Amphetamine 7.5 mg PO DAILY 07/18/23 07/18/23 [Adderall 7.5 mg Tablet] Ondansetron Odt [Zofran] 4 mg TL Q6H PRN #10 tablet 07/18/23 clonazePAM [Clonazepam] 1 mg PO PRN PRN 07/18/23 07/18/23 dexAMETHasone [Decadron] 4 mg PO DAILY #5 tablet 07/18/23 - Allergies Allergies/Adverse Reactions: Allergies Allergy/AdvReac Type Severity Reaction Status Date / Time ketorolac tromethamine * Allergy Edema Verified 01/27/23 17:38 [From Toradol] morphine Allergy Itching Verified 01/27/23 17:38 lorazepam [From Ativan] AdvReac Dizziness Verified 01/27/23 17:38 tramadol AdvReac Itching Verified 01/27/23 17:38 - Social History Does the pt smoke?: Yes Smoking Status: Current every day smoker Does the pt drink ETOH?: Yes Does the pt have substance abuse?: No - Immunizations Immunizations are current?: No Immunizations: Other immun not current - POLST Patient has POLST: No POLST Status: Full Code PD ED PE NORMAL - Vitals Vital signs reviewed: Yes - General General: Alert and oriented X 3, No acute distress, Well developed/nourished - HEENT HEENT: Atraumatic, PERRL - Neck Neck: Supple, no meningeal sign, No adenopathy, No bruit - Cardiac Cardiac: RRR, No murmur - Respiratory Respiratory: Clear bilaterally - Abdomen Abdomen: Soft, Non tender - Derm Derm: Normal color, Warm and dry - Extremities Extremities: Normal ROM s pain - Neuro Neuro: Alert and oriented X 3, No motor deficit, No sensory deficit, Normal speech Results - Vitals Vitals: Vital Signs - 24 hr 07/18/23 07/18/23 07/18/23 10:04 12:18 13:41 Temperature 36.2 C L 36.4 C L Heart Rate 90 82 84 Respiratory 20 12 16 Rate Blood Pressure 166/96 H 160/89 H 158/86 H O2 Saturation 98 99 99 Oxygen O2 Source Room air - Labs Labs: Laboratory Tests 07/18/23 11:53 Nasal Adenovirus (PCR) NOT DETECTED Nasal B. parapertussis DNA (PCR) NOT DETECTED Nasal Coronavir 229E PCR NOT DETECTED Nasal Coronavir HKU1 PCR NOT DETECTED Nasal Coronavir NL63 PCR NOT DETECTED Nasal Coronavir OC43 PCR NOT DETECTED Nasal Enterovir/Rhinovir PCR NOT DETECTED Nasal Influenza B PCR NOT DETECTED Nasal Influenza A PCR NOT DETECTED Nasal Parainfluen 1 PCR NOT DETECTED Nasal Parainfluen 2 PCR NOT DETECTED Nasal Parainfluen 3 PCR NOT DETECTED Nasal Parainfluen 4 PCR NOT DETECTED Nasal RSV (PCR) NOT DETECTED Nasal B.pertussis DNA PCR NOT DETECTED Nasal C.pneumoniae (PCR) NOT DETECTED Kapil Human Metapneumo PCR NOT DETECTED Nasal M.pneumoniae (PCR) NOT DETECTED Nasal SARS-CoV-2 (PCR) DETECTED A PD Medical Decision Making - ED course Complexity details: re-evaluated patient (improved with IM inapsine, benadryl, and dilaudid (given dose 2 mg IM as she is on suboxone and takes higher dose to have some effect with that). ), considered differential (flu like symptoms and having migraine type headache. She declines IV attempt but is okay with IMmeds. She does not seem meningitic by exam. I feel she has early viral illness and it has triggered migraine. ), d/w patient Departure - Departure Disposition: 01 Home, Self Care Clinical Impression: Migraine headache, COVID-19, Viral syndrome Condition: Stable Record reviewed to determine appropriate education?: Yes Instructions: ED Headache Migraine Follow-Up: Sandi Bailey ARNP [Primary Care Provider] - Prescriptions: dexAMETHasone [Decadron] 4 mg PO DAILY #5 tablet Ondansetron Odt [Zofran] 4 mg TL Q6H PRN #10 tablet PRN Reason: Nausea / Vomiting Comments: This does sound like a migraine headache and was improved with medication for headache but also targeted towards migraine. You also have symptoms that sound that there may be a viral illness starting with the muscle aches and congestion and the feeling of sweats yesterday. Your respiratory viral panel test has not resulted yet. We can call you if there are any positives to it and you can also look up the results in the patient portal. If you do develop more viral type/flulike illness in the last next few days, that may sound right. This could also have triggered a migraine as well. Rest today. See how you are feeling over the next few days. I wrote prescriptions for Decadron steroid anti-inflammatory for the next few days to help with reducing rebound headache/migraine. I also wrote for ondansetron if needed for nausea. I sent these to your preferred pharmacy. Addendum: Your viral PCR test came back positive for COVID. Your likely be sick for 5 to 7 days at least. I revised your work note to include 5 days off work due to that. Forms: PCP List, Activity restrictions Discharge Date/Time: 07/18/23 13:42
[2023-07-18] MEDS ORDERED: diphenhydrAMINE INJ 50 MG/ML VIAL IM STA (11:12)
[2023-07-18] MEDS ORDERED: HYDROmorphone 2 MG/ML VIAL IM STA (11:12)
[2023-07-18] MEDS ORDERED: DEXAMETHASONE 10 MG/ML VIAL PO STA (11:12)
[2023-07-18] MEDS ORDERED: DROPERIDOL 5 MG/2 ML VIAL IM STA (11:12)
[2023-07-18] MEDS ORDERED: CHERRY SYRUP 10 ML UDC PO ONE (11:12)
--- OUTSIDE RECORDS SUMMARY | 2023-07-18 11:28 | EXTERNAL MEDICAL SUMMARY RPT | Continuity of Care Document ---
Author Name Unknown Address [address] [place] [address] Phone Organization [facility] Address [address] [place] [address] Phone Care Team Providers Care Vacation Sales Advisor Name Role Phone Jose Ramon Hodges Unavailable Unavailable Medications date description facility 2023-05-06 00:00 Dextroamphetamine-Amphetamine [facility] 2023-04-29 00:00 Dextroamphetamine-Amphetamine [facility] 2023-05-14 00:00 Dextroamphetamine-Amphetamine [facility] 2023-05-21 00:00 [facility] Social History date description facility 2023-05-21 00:00 Smokes tobacco daily ([facility]
[2023-07-18 12:19] VITALS: O2SAT 99
[2023-07-18 13:14] LABS: B. PARAPERTUSSIS- RESP PCR PAN NOT DETECTED; B. PERTUSSIS- RESP PCR PANEL NOT DETECTED; C. PNEUMONIAE- RESP PCR PANEL NOT DETECTED; CORONAVIRUS 229E-RESP PCR NOT DETECTED; CORONAVIRUS HKU1-RESP PCR NOT DETECTED; CORONAVIRUS NL63-RESP PCR NOT DETECTED; CORONAVIRUS OC43-RESP PCR NOT DETECTED; HUMAN METAPNEUMOVIRUS NOT DETECTED; INFLUENZA A- RESP PCR PANEL NOT DETECTED; INFLUENZA B - RESP PCR PANEL NOT DETECTED; M. PNEUMONIAE- RESP PCR PANEL NOT DETECTED; PARAINFLUENZA VIRUS 1 NOT DETECTED; PARAINFLUENZA VIRUS 2 NOT DETECTED; PARAINFLUENZA VIRUS 3 NOT DETECTED; PARAINFLUENZA VIRUS 4 NOT DETECTED; RHINOVIRUS/ENTEROVIRUS NOT DETECTED; RSV- RESP PCR PANEL NOT DETECTED
[2023-07-18 13:21] LABS: SARS-CoV-2 -RESP PCR PANEL DETECTED
[2023-07-18 13:46] VITALS: BP 158/86
== END 2023-07-18 13:42 | disposition home or self-care (01) ==
LOC: ED 09:59
DX: U07.1 COVID-19 (principal); G43.909 Migraine, unspecified, not intractable, without status migrainosus; B34.9 Viral infection, unspecified; I10 Essential (primary) hypertension; F17.200 Nicotine dependence, unspecified, uncomplicated; Z79.899 Other long term (current) drug therapy
CPT/HCPCS: 87633; 96372; 99283; A9270; J1170; J1200

== ENCOUNTER 2023-07-25 13:37 | Emergency (ER) | payer MEDICARE ==
[2023-07-25 13:52] VITALS: BP 140/90; O2SAT 100
--- OUTSIDE RECORDS SUMMARY | 2023-07-25 14:02 | EXTERNAL MEDICAL SUMMARY RPT | Continuity of Care Document ---
Author Name Unknown Address [address] [place] [address] Phone Organization [facility] Address [address] [place] [address] Phone Care Team Providers Care Heading Machine Operator Name Role Phone Jose Ramon Hodges Unavailable Unavailable Medications date description facility 2023-05-06 00:00 Dextroamphetamine-Amphetamine [facility] 2023-04-29 00:00 Dextroamphetamine-Amphetamine [facility] 2023-05-14 00:00 Dextroamphetamine-Amphetamine [facility] 2023-05-21 00:00 [facility] Social History date description facility 2023-05-21 00:00 Smokes tobacco daily ([facility]
[2023-07-25] MEDS ORDERED: HYDROmorphone 1 MG/ML CARPUJECT IM STA (14:03)
[2023-07-25] MEDS ORDERED: KETOROLAC 60 MG/2 ML VIAL IM STA (14:03)
[2023-07-25] MEDS ORDERED: PROMETHAZINE 25 MG/1 ML VIAL IM STA (14:04)
--- NOTE | 2023-07-25 14:07 | ED Physician Documentation ---
History of Present Illness - Stated complaint Stated Complaint: C+HEAD PX/VOMITING - Chief complaint Chief Complaint: General - History obtained from History obtained from: Patient - Additonal information Additional information: The patient comes to the emergency department chief complaint of body pain from coughing and headache. She was diagnosed with COVID about 8 days ago and states that she has been doing a lot of coughing at night. She also has been nauseated while sick. She does not feel like her breathing is getting worse and she denies any fevers. She just wonders "how long will this go on" and wants to know if there is anything we can do to make her more comfortable. She was already prescribed a course of steroids the day she was diagnosed and also was on medication for pain and nausea at home. She has run out of all her medications. No other complaints at this time. PD PAST MEDICAL HISTORY - Past Medical History Cardiovascular: Hypertension, Pulmonary embolism Respiratory: None Neuro: Headaches, Migraines Endocrine/Autoimmune: None GI: Hepatitis, Diverticulitis SEISMIC PLOTTER: Breast cancer : None HEENT: None Psych: Depression, Anxiety, Other Derm: None - Past Surgical History Past Surgical History: Yes General: Gastric surgery Ortho: Other /SEISMIC PLOTTER: Mastectomy, Other - Present Medications Home Medications: Ambulatory Orders Medication Instructions Recorded Confirmed Duloxetine HCl [Cymbalta] 60 mg PO DAILY 11/17/16 07/18/23 Trazodone HCl 50 mg PO QPM 09/26/19 07/18/23 lamoTRIgine [Lamictal] 200 mg PO DAILY 09/26/19 07/18/23 Buprenorphine HCl/Naloxone HCl 1 each SL DAILY 09/10/22 07/18/23 [Suboxone 8 mg-2 mg Sl Film] Buprenorphine HCl/Naloxone HCl 1 each SL BID 5 Days #10 film 10/13/22 07/18/23 [Suboxone 4 mg-1 mg Sl Film] Dextroamphetamine/Amphetamine 7.5 mg PO DAILY 07/18/23 07/18/23 [Adderall 7.5 mg Tablet] Ondansetron Odt [Zofran] 4 mg TL Q6H PRN #10 tablet 07/18/23 clonazePAM [Clonazepam] 1 mg PO PRN PRN 07/18/23 07/18/23 dexAMETHasone [Decadron] 4 mg PO DAILY #5 tablet 07/18/23 Benzonatate [Tessalon] 100 mg PO TID #21 cap 07/25/23 HYDROcod/ACETAM 5/325 [[place] 5/325] 1 - 2 tablet PO Q6H PRN #14 tablet 07/25/23 - Allergies Allergies/Adverse Reactions: Allergies Allergy/AdvReac Type Severity Reaction Status Date / Time ketorolac tromethamine * Allergy Edema Verified 07/25/23 13:41 [From Toradol] morphine Allergy Itching Verified 07/25/23 13:41 lorazepam [From Ativan] AdvReac Dizziness Verified 07/25/23 13:41 tramadol AdvReac Itching Verified 07/25/23 13:41 - Social History Does the pt smoke?: Yes Smoking Status: Current every day smoker Does the pt drink ETOH?: Yes Does the pt have substance abuse?: No - Immunizations Immunizations are current?: No Immunizations: Other immun not current - POLST Patient has POLST: No POLST Status: Full Code PD ED PE NORMAL - Vitals Vital signs reviewed: Yes - General General: Alert and oriented X 3, No acute distress, Well developed/nourished, Other (The patient appears somewhat uncomfortable but otherwise no apparent distress.) - HEENT HEENT: Atraumatic, PERRL, EOMI, Moist mucous membranes - Neck Neck: Supple, no meningeal sign - Cardiac Cardiac: RRR, No murmur, Strong equal pulses - Respiratory Respiratory: No respiratory distress, Clear bilaterally - Abdomen Abdomen: Soft, Non tender, Non distended - Derm Derm: Normal color, Warm and dry, No rash - Extremities Extremities: No deformity, No edema - Neuro Neuro: Alert and oriented X 3, district fire management officer 2-12 intact, Normal speech - Psych Psych: Normal mood, Normal affect Results - Vitals Vitals: Vital Signs - 24 hr 07/25/23 13:41 Temperature 36.5 C Heart Rate 82 Respiratory 16 Rate Blood Pressure 140/90 H O2 Saturation 100 Oxygen O2 Source Room air PD Medical Decision Making - ED course Complexity details: reviewed old records, considered differential, d/w patient ED course: The patient was treated symptomatically in the emergency department. Her vital signs were reassuring and I did not feel further work-up was indicated emergently. I have discussed with her that symptoms of COVID can easily last 1 to 2 weeks and sometimes longer. We have discussed the usual indications for return including worsening respiratory status or generally worsening feeling of illness. Departure - Departure Disposition: 01 Home, Self Care Clinical Impression: COVID-19 Condition: Stable Instructions: ED Viral Syndrome Prescriptions: HYDROcod/ACETAM 5/325 [[place] 5/325] 1 - 2 tablet PO Q6H PRN #14 tablet PRN Reason: Pain Benzonatate [Tessalon] 100 mg PO TID #21 cap Comments: Your symptoms are typical of COVID and unfortunately, symptoms can last anywhere from a few days to a few weeks. Unfortunately, there really is not a way to speed up recovery or specifically "cure" symptoms. You may take ibuprofen and Tylenol as needed for general discomforts; however, you may also take the cough medicine and the pain medicine that has been prescribed. Prescriptions for these have been electronically transmitted to the [facility] pharmacy in [place]. If you decide to take the prescribed pain medication, you should take it instead of and not at the same time as Tylenol, as it also contains Tylenol. Tylenol and the pain medication should be taken at least 4 hours apart. Please be sure you are drinking plenty of fluids and getting rest is much as possible. Follow-up with your doctor for any further concerns.
== END 2023-07-25 14:33 | disposition home or self-care (01) ==
LOC: ED 13:37
DX: U07.1 COVID-19 (principal); I10 Essential (primary) hypertension; F17.200 Nicotine dependence, unspecified, uncomplicated
CPT/HCPCS: 96372; 99283; J1170

== ENCOUNTER 2023-08-01 18:44 | Emergency (ER) | payer MEDICARE, MEDICAID ==
--- OUTSIDE RECORDS SUMMARY | 2023-08-01 19:17 | EXTERNAL MEDICAL SUMMARY RPT | Continuity of Care Document ---
Author Name Unknown Address [address] [place] [address] Phone Organization [facility] Address [address] [place] [address] Phone Care Team Providers Care Intercell Connector Placer Name Role Phone Jose Ramon Hodges Unavailable Unavailable Medications date description facility 2023-05-06 00:00 Dextroamphetamine-Amphetamine [facility] 2023-05-14 00:00 Dextroamphetamine-Amphetamine [facility] 2023-05-21 00:00 Dextroamphetamine-Amphetamine [facility] Social History date description facility 2023-05-21 00:00 Smokes tobacco daily ([facility]
[2023-08-01] MEDS ORDERED: ONDANSETRON 4 MG/2 ML VIAL IVP STA (20:12)
--- NOTE | 2023-08-01 20:15 | ED Physician Documentation ---
History of Present Illness - Stated complaint Stated Complaint: SOA, N/V/D, FATIGUE - Chief complaint Chief Complaint: General - Additonal information Additional information: 53-year-old female presents emergency department for evaluation of persistent fatigue, nausea and diarrhea. Symptoms began after she tested positive for COVID in early July. Patient is unsure if she took Paxlovid. She states that she is so tired she can barely move about her day. She has been having 1-2 watery bowel movements a day. She has significant anorexia and nausea. Vomiting on average of 2-3 times a day. Though she has not vomited since this AM. Patient states that she feels that she is increasingly unable to care for self and she is hoping that she could be admitted to the hospital. Patient endorses longstanding history of depression and anxiety. Also has a history of ductal carcinoma in 2019 status post bilateral mastectomy with associated chemotherapy. Currently in remission. Review of Systems Constitutional: reports: Myalgias, Fatigue Respiratory: denies: Dyspnea, Cough GI: denies: Abdominal Pain : reports: Reviewed and negative Skin: denies: Rash, Lesions Musculoskeletal: reports: Reviewed and negative PD PAST MEDICAL HISTORY - Past Medical History Cardiovascular: Hypertension, Pulmonary embolism Respiratory: None Neuro: Headaches, Migraines Endocrine/Autoimmune: None GI: Hepatitis, Diverticulitis HEALTH DIRECTOR: Breast cancer : None HEENT: None Psych: Depression, Anxiety, Other Derm: None - Past Surgical History Past Surgical History: Yes General: Gastric surgery Ortho: Other /HEALTH DIRECTOR: Mastectomy, Other - Present Medications Home Medications: Ambulatory Orders Medication Instructions Recorded Confirmed Duloxetine HCl [Cymbalta] 60 mg PO DAILY 11/17/16 08/01/23 Trazodone HCl 50 mg PO QPM 09/26/19 08/01/23 lamoTRIgine [Lamictal] 200 mg PO DAILY 09/26/19 08/01/23 Buprenorphine HCl/Naloxone HCl 1 each SL DAILY 09/10/22 08/01/23 [Suboxone 8 mg-2 mg Sl Film] Dextroamphetamine/Amphetamine 7.5 mg PO DAILY 07/18/23 08/01/23 [Adderall 7.5 mg Tablet] clonazePAM [Clonazepam] 1 mg PO PRN PRN 07/18/23 08/01/23 Ondansetron Odt [Zofran] 4 mg TL Q6H PRN #10 tablet 08/01/23 - Allergies Allergies/Adverse Reactions: Allergies Allergy/AdvReac Type Severity Reaction Status Date / Time ketorolac tromethamine * Allergy Edema Verified 07/25/23 13:41 [From Toradol] morphine Allergy Itching Verified 07/25/23 13:41 lorazepam [From Ativan] AdvReac Dizziness Verified 07/25/23 13:41 tramadol AdvReac Itching Verified 07/25/23 13:41 - Social History Does the pt smoke?: Yes Smoking Status: Current every day smoker Does the pt drink ETOH?: Yes Does the pt have substance abuse?: No - Immunizations Immunizations are current?: No Immunizations: Other immun not current - POLST Patient has POLST: No POLST Status: Full Code PD ED PE NORMAL - General General: Alert and oriented X 3, No acute distress, Well developed/nourished - HEENT HEENT: Atraumatic - Cardiac Cardiac: RRR, No murmur - Respiratory Respiratory: No respiratory distress, Clear bilaterally - Abdomen Abdomen: Normal bowel sounds, Soft, Non tender - Back Back: No CVA TTP, No spinal TTP - Derm Derm: Normal color, Warm and dry, Other (Bilateral mastectomy scars. Well- healed.) - Extremities Extremities: No deformity - Neuro Neuro: Alert and oriented X 3 Eye Opening: Spontaneous Motor: Obeys Commands Verbal: Oriented GCS Score: 15 - Psych Psych: Other ( angry agitated affect) Results - Vitals Vitals: Vital Signs - 24 hr 08/01/23 19:00 Temperature 36.6 C Heart Rate 122 H Respiratory 20 Rate Blood Pressure 108/69 O2 Saturation 100 Oxygen O2 Source Room air - Labs Labs: Laboratory Tests 08/01/23 08/01/23 08/01/23 20:03 20:48 20:48 WBC 6.9 RBC 4.66 Hgb 13.9 Hct 42.2 MCV 90.6 MCH 29.8 MCHC 32.9 RDW 12.7 Plt Count 347 MPV 9.0 Neut # (Auto) 4.3 Lymph # (Auto) 1.7 Hanson # (Auto) 0.6 Eos # (Auto) 0.2 Baso # (Auto) 0.0 Absolute Nucleated RBC 0.00 Nucleated RBC % 0.0 TSH 1.05 Urine Color YELLOW Urine Clarity CLEAR Urine pH 6.0 Ur Specific [place] 1.015 Urine Protein NEGATIVE Urine Glucose (UA) NEGATIVE Urine Ketones NEGATIVE Urine Occult Blood NEGATIVE Urine Nitrite NEGATIVE Urine Bilirubin NEGATIVE Urine Urobilinogen 0.2 (NORMAL) Ur Leukocyte Esterase NEGATIVE Ur Microscopic Review NOT INDICATED Urine Culture Comments NOT INDICATED Urine HCG, Qual NEGATIVE - Rads (name of study) cxr Relevant Findings:: Final report received (No acute cardiopulmonary process. No focal infiltrates are seen) PD Medical Decision Making - ED course Complexity details: reviewed results, d/w patient ED course: 53-year-old female returns to the emergency department for evaluation of her COVID-19 symptoms. States that when she got sick on July 18 she has not felt well since. She has been having intermittent vomiting and diarrhea. Last time this a.m. Feerick. She feels weak, dehydrated. She would like to be admitted to the hospital. I did obtain CBC, electrolytes, TSH and urinalysis. Pt refused EKG. Per my interpretation no acute worrisome abnormalities. Here today chest x-ray is without acute worrisome abnormalities. Initially we did have difficult time obtaining IV access however ultrasound- guided deep vein access was obtained however shortly after fluids began to infuse the patient began having pain in the arm and requested we stop the fluids. She had an angry agitated affect. She was requesting more pain medicine in the form given by previous ER colleague. I then gave the patient 2 mg of Dilaudid IM as well as 1.5 mg of Inapsine also IM. Clinically there is no indication for admission of the patient to the hospital given the unremarkable work-up and negative chest x-ray imaging. Some of her symptomatology prescription for Zofran was sent to her preferred pharmacy. She is advised to discuss this ED visit with your primary care provider. Discharged home in stable condition. Departure - Departure Disposition: Home, Self Care Clinical Impression: History of COVID-19 Fatigue Qualifiers: Fatigue type: unspecified Qualified Code(s): R53.83 - Other fatigue Condition: Stable Prescriptions: Ondansetron Odt [Zofran] 4 mg TL Q6H PRN #10 tablet PRN Reason: Nausea / Vomiting Comments: Abbi you are seen today for significant fatigue after recent COVID-19 infection. Your CBC, electrolytes and urinalysis were all essentially normal with no worrisome or abnormal findings seen. Your chest x-ray was also normal there was no findings of pneumonia. There is no clinical indication to admit you to the hospital. I encourage you to stay well-hydrated. I have sent a prescription for some Zofran and nausea medicine to your pharmacy. Please discuss this ED visit with your primary care doctor. Return sooner for worsening symptoms. Forms: PCP List
[2023-08-01] MEDS ORDERED: HYDROmorphone 1 MG/ML CARPUJECT IVP STA (20:55)
[2023-08-01 20:57] LABS: BASOPHILS % (AUTO) 0.6 %; EOSINOPHILS # (AUTO) 0.2 10^3/uL (0.0-0.7); EOSINOPHILS % (AUTO) 3.3 %; HCT - HEMATOCRIT 42.2 % (37.0-47.0); HGB - HEMOGLOBIN 13.9 g/dL (12.0-16.0); LYMPHOCYTES # (AUTO) 1.7 10^3/uL (1.5-3.5); LYMPHOCYTES % (AUTO) 25.1 %; MEAN CORPUSCULAR HEMOGLOBIN 29.8 pg (27.0-31.0); MEAN CORPUSCULAR HGB CONC 32.9 g/dL (32.0-36.0); MEAN CORPUSCULAR VOLUME 90.6 fL (81.0-99.0); MONOCYTES # (AUTO) 0.6 10^3/uL (0.0-1.0); MONOCYTES % (AUTO) 8.4 %; NEUTROPHILS # (AUTO) 4.3 10^3/uL (1.5-6.6); NEUTROPHILS % (AUTO) 62.3 %; PLT - PLATELET COUNT 347 10^3/uL (130-450); RED BLOOD COUNT 4.66 10^6/uL (4.20-5.40); RED CELL DISTRIBUTION WIDTH 12.7 % (12.0-15.0); WHITE BLOOD COUNT 6.9 x10^3/uL (4.8-10.8)
[2023-08-01 20:59] LABS: BILIRUBIN,URINE NEGATIVE (NEGATIVE); GLUCOSE, URINE (UA) NEGATIVE (NEGATIVE); KETONES,URINE (UA) NEGATIVE (NEGATIVE); LEUKOCYTE ESTERASE, URINE NEGATIVE (NEGATIVE); NITRITE,URINE NEGATIVE (NEGATIVE); OCCULT BLOOD,URINE NEGATIVE (NEGATIVE); PROTEIN,URINE NEGATIVE (NEGATIVE); UROBILINOGEN,URINE 0.2 (NORMAL) E.U./dL (NORMAL)
--- NOTE | 2023-08-01 21:01 | XRAY Report ---
PROCEDURE: Chest 1 View X-Ray INDICATIONS: covid TECHNIQUE: One view of the chest was acquired. COMPARISON: 05/24/2021 FINDINGS: Surgical changes and devices: None. Lungs and pleura: No pleural effusions or pneumothorax. Lungs are clear. Mediastinum: Mediastinal contours appear normal. Heart size is normal. Bones and chest wall: No suspicious bony lesions. Overlying soft tissues appear unremarkable. IMPRESSION: No acute cardiopulmonary process. No focal infiltrates are seen. Reviewed by: Viral Schofield MD on 08/01/2023 8:00 PM AKDT Approved by: Viral Schofield MD on 08/01/2023 8:00 PM [facility] Station ID: [id number]
[2023-08-01 21:02] LABS: CLARITY,URINE CLEAR (CLEAR); HCG UR QUAL NEGATIVE
[2023-08-01] MEDS: SODIUM CHLORIDE 0.9% 1,000 ML IV STA ×2 (21:13→22:10)
[2023-08-01 21:29] LABS: THYROID STIMULATING HORMONE 1.05 uIU/mL (0.34-5.60)
[2023-08-01] MEDS ORDERED: ONDANSETRON ODT 4 MG TABLET TL STA (21:35)
[2023-08-01] MEDS ORDERED: HYDROmorphone 1 MG/ML CARPUJECT IM STA (21:37)
[2023-08-01] MEDS ORDERED: DROPERIDOL 5 MG/2 ML VIAL IM STA (21:38)
[2023-08-01 21:39] LABS: ALBUMIN 4.2 g/dL (3.2-5.5); ALBUMIN/GLOBULIN RATIO 1.7 (1.0-2.2); BILIRUBIN,TOTAL 0.5 mg/dL (0.2-1.0); CALCIUM 9.7 mg/dL (8.5-10.3); MAGNESIUM 1.8 mg/dL (1.7-2.3); POTASSIUM 4.5 mmol/L (3.5-4.5); TOTAL PROTEIN 6.7 g/dL (6.4-8.9)
--- NOTE | 2023-08-01 21:39 | ED Physician Documentation ---
ED Addendum - Addendum Addendum: 08/01/23 21:38 I was initially asked by the nurse to place an IV, she had poor IV access. I personally placed a long 22-gauge IV in the right antecubital fossa using real-time ultrasound guidance after ChloraPrep which flushed and cindi well. I was informed later that the IV was not working or at least the patient's impression was that it was not working. The nurse stated it was not drawing blood again at that point. Patient was very upset, I went in the room and introduced myself as the medical unit secretary. She stated she was in a lot of pain and would like what ever Dr. Headley gave her at her prior visit. I passed this along to the nurse practitioner.
[2023-08-01 22:30] VITALS: BP 104/64; O2SAT 95
== END 2023-08-01 22:23 | disposition home or self-care (01) ==
LOC: ED 18:44
DX: R53.83 Other fatigue (principal); Z86.16 Personal history of COVID-19; I10 Essential (primary) hypertension; F17.200 Nicotine dependence, unspecified, uncomplicated
CPT/HCPCS: 36415; 71045; 80053; 81003; 81025; 83690; 83735; 84443; 85025; 93005; 96372; 96374; 99284; J1170; Q0162; 81001; 87086

== ENCOUNTER 2023-08-07 10:31 | Emergency (ER) | payer OTHER, MEDICARE ==
--- NOTE | 2023-08-07 11:19 | ED Physician Documentation ---
PD HPI ABD PAIN - Stated complaint Stated Complaint: SOA,UNWELL,ABD PX - Chief complaint Chief Complaint: General - History obtained from History obtained from: Patient - History of Present Illness Timing - onset: How many weeks ago (3) Timing - duration: Weeks (3) Timing - details: Abrupt onset (The patient has felt unwell for the last 3 weeks including nausea, some headache, upper abdominal discomfort and fatigue. Still with cough and some dyspnea. Diagnosed with COVID on the first of the month 3 weeks ago. States persisting nausea, cough., fatigue.), Still present Quality: Cramping, Aching, Pain Location: Epigastric, LUQ Radiation: No: Chest, Left flank, Right flank Improved by: No: Vomiting Worsened by: Eating Associated symptoms: Fever (subjective the first 1-2 weeks, not currently), N ausea, Diarrhea (loose), Loss of appetite. No: Hematemesis, Constipation, Chest pain Recently seen: Emergency Dept (3 times this month for similar/persistent symptoms.) Review of Systems Constitutional: reports: Chills, Myalgias, Fatigue Throat: denies: Sore throat Cardiac: denies: Chest pain / pressure Respiratory: reports: Dyspnea, Cough. denies: Wheezing GI: reports: Abdominal Pain, Nausea, Vomiting, Diarrhea. denies: Constipation, Bloody / black stool Neurologic: reports: Headache. 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 : Kidney stones HEENT: None Psych: Depression, Anxiety, Other Derm: None - Past Surgical History Past Surgical History: Yes General: Gastric surgery Ortho: Other /HOME SERVICE DEMONSTRATOR: Mastectomy, Other - Present Medications Home Medications: Ambulatory Orders Medication Instructions Recorded Confirmed Duloxetine HCl [Cymbalta] 60 mg PO DAILY 11/17/16 08/07/23 Trazodone HCl 50 mg PO QPM 09/26/19 08/07/23 lamoTRIgine [Lamictal] 200 mg PO DAILY 09/26/19 08/07/23 Buprenorphine HCl/Naloxone HCl 1 each SL DAILY 09/10/22 08/07/23 [Suboxone 8 mg-2 mg Sl Film] Dextroamphetamine/Amphetamine 7.5 mg PO DAILY 07/18/23 08/07/23 [Adderall 7.5 mg Tablet] clonazePAM [Clonazepam] 1 mg PO PRN PRN 07/18/23 08/07/23 Ondansetron Odt [Zofran] 4 mg TL Q6H PRN #10 tablet 08/01/23 08/07/23 Famotidine [Pepcid] 20 mg PO BID #30 tablet 08/07/23 Prochlorperazine Supp [Compazine 25 mg AR Q8H PRN #5 supp 08/07/23 Supp] Promethazine [Phenergan] 25 mg PO Q6H PRN #25 tab 08/07/23 - Allergies Allergies/Adverse Reactions: Allergies Allergy/AdvReac Type Severity Reaction Status Date / Time ketorolac tromethamine * Allergy Edema Verified 08/07/23 10:49 [From Toradol] morphine Allergy Itching Verified 08/07/23 10:49 lorazepam [From Ativan] AdvReac Dizziness Verified 08/07/23 10:49 tramadol AdvReac Itching Verified 08/07/23 10:49 - Social History Does the pt smoke?: Yes Smoking Status: Current every day smoker Does the pt drink ETOH?: Yes Does the pt have substance abuse?: No - Immunizations Immunizations are current?: No Immunizations: Other immun not current - POLST Patient has POLST: No POLST Status: Full Code PD ED PE NORMAL - Vitals Vital signs reviewed: Yes - General General: Alert and oriented X 3, Well developed/nourished - Cardiac Cardiac: No murmur. No: RRR (regular but tachycardic) - Abdomen Abdomen: Normal bowel sounds, Non distended, Other (tedner epigastric and upper abd area. without guarding nor percussion tendrness. ) - Female Female : Deferred - Rectal Rectal: Deferred - Back Back: No CVA TTP - Derm Derm: Normal color, Warm and dry Results - Vitals Vitals: Vital Signs - 24 hr 08/07/23 08/07/23 08/07/23 10:43 12:54 14:46 Temperature 37.1 C Heart Rate 118 H 83 95 Respiratory 18 18 18 Rate Blood Pressure 149/94 H 143/89 H 120/74 O2 Saturation 95 98 96 Oxygen O2 Source Room air PD Medical Decision Making - ED course Complexity details: reviewed results (recheck after IM meds with reasonable improvement in nausea and moderate in pain. Given repeat dose of dilaudid with better improvement. ), re-evaluated patient (She takes buprenoprhinine for chronic pain so chiquis have some partial inhibition of other opiods. She historically is difficult IV access. I was intending IV meds and fluids with some labs, but she declined lab draw after cople of unsuccessful if drawattempts. Opted for IM meds for nausdea and pains.), considered differential, d/w patient Departure - Departure Disposition: 01 Home, Self Care Clinical Impression: Nausea & vomiting, Gastritis Condition: Stable Record reviewed to determine appropriate education?: Yes Instructions: ED Nausea Vomiting Follow-Up: Sandi Bailey ARNP [Primary Care Provider] - Prescriptions: Prochlorperazine Supp [Compazine Supp] 25 mg AR Q8H PRN #5 supp PRN Reason: Nausea / Vomiting Famotidine [Pepcid] 20 mg PO BID #30 tablet Promethazine [Phenergan] 25 mg PO Q6H PRN #25 tab PRN Reason: Nausea / Vomiting Comments: There can often be persistent weakness, cough, fatigue for several weeks to a month after the initial COVID infection. It does sound likely you have some irritation of the stomach as perpetuating the nausea and vomiting as well (gastritis). I would suggest small frequent fluids and antacid such as Maalox or Mylanta. Famotidine acid reducing medicine twice daily for the next couple of weeks. For nausea, he can use Phenergan every 6-8 hours if needed for nausea. If vomiting and unable to keep down medicine, you could try Compazine suppository to control the vomiting. I sent your prescriptions to your preferred pharmacy. Follow-up with your primary care or return to the ER if still not improving well over the next few days. Forms: PCP List Discharge Date/Time: 08/07/23 14:51
--- OUTSIDE RECORDS SUMMARY | 2023-08-07 11:19 | EXTERNAL MEDICAL SUMMARY RPT | Continuity of Care Document ---
Author Name Unknown Address [address] [place] [address] Phone Organization [facility] Address [address] [place] [address] Phone Care Team Providers Care Shooter'S Helper Name Role Phone Jose Ramon Hodges Unavailable Unavailable Medications date description facility 2023-05-14 00:00 Dextroamphetamine-Amphetamine I [facility] 2023-05-21 00:00 Dextroamphetamine-Amphetamine [facility] Social History date description facility 2023-05-21 00:00 Smokes tobacco daily ([facility]
[2023-08-07] MEDS ORDERED: diphenhydrAMINE INJ 50 MG/ML VIAL IM STA (12:15)
[2023-08-07] MEDS ORDERED: DROPERIDOL 5 MG/2 ML VIAL IM STA (12:15)
[2023-08-07] MEDS ORDERED: HYDROmorphone 2 MG/ML VIAL IM STA ×2 (12:15→13:23)
--- NOTE | 2023-08-07 13:13 | XRAY Report ---
PROCEDURE: Chest 1 View X-Ray INDICATIONS: persistent cough/dyspnea TECHNIQUE: One view of the chest was acquired. COMPARISON: None FINDINGS: Surgical changes and devices: None. Lungs and pleura: No pleural effusions or pneumothorax. Lungs are clear. Mediastinum: Mediastinal contours appear normal. Heart size is normal. Bones and chest wall: No suspicious bony lesions. Overlying soft tissues appear unremarkable. IMPRESSION: No acute cardiopulmonary findings Reviewed by: Jr Chopra MD on 08/07/2023 12:12 PM AKDT Approved by: Jr Chopra MD on 08/07/2023 12:12 PM AKDT Station ID: [id number]
[2023-08-07] MEDS ORDERED: FAMOTIDINE 20 MG TABLET PO STA (13:24)
[2023-08-07] MEDS ORDERED: MAG HYDROX/AL HYDROX/SIMETH 30 ML UDC PO STA (13:24)
[2023-08-07 14:47] VITALS: BP 120/74; O2SAT 96
== END 2023-08-07 14:51 | disposition home or self-care (01) ==
LOC: ED 10:31
DX: K29.70 Gastritis, unspecified, without bleeding (principal); I10 Essential (primary) hypertension; F17.200 Nicotine dependence, unspecified, uncomplicated
CPT/HCPCS: 71045; 96372; 99283; 99284; A9270; J1170; J1200; 80053; 83690; 85025

== ENCOUNTER 2023-08-23 16:04 | Emergency (ER) | payer OTHER, MEDICARE ==
[2023-08-23 16:20] VITALS: O2SAT 100
[2023-08-23 16:36] LABS: BILIRUBIN,URINE NEGATIVE (NEGATIVE); GLUCOSE, URINE (UA) NEGATIVE (NEGATIVE); KETONES,URINE (UA) NEGATIVE (NEGATIVE); LEUKOCYTE ESTERASE, URINE NEGATIVE (NEGATIVE); NITRITE,URINE NEGATIVE (NEGATIVE); OCCULT BLOOD,URINE NEGATIVE (NEGATIVE); PROTEIN,URINE NEGATIVE (NEGATIVE); UROBILINOGEN,URINE 0.2 (NORMAL) E.U./dL (NORMAL)
[2023-08-23 16:40] LABS: BASOPHILS % (AUTO) 0.6 %; EOSINOPHILS # (AUTO) 0.1 10^3/uL (0.0-0.7); HCT - HEMATOCRIT 45.3 % (37.0-47.0); HGB - HEMOGLOBIN 15.4 g/dL (12.0-16.0); LYMPHOCYTES # (AUTO) 1.7 10^3/uL (1.5-3.5); LYMPHOCYTES % (AUTO) 31.9 %; MEAN CORPUSCULAR HEMOGLOBIN 30.2 pg (27.0-31.0); MEAN CORPUSCULAR VOLUME 88.8 fL (81.0-99.0); MONOCYTES # (AUTO) 0.5 10^3/uL (0.0-1.0); MONOCYTES % (AUTO) 8.8 %; NEUTROPHILS # (AUTO) 3.1 10^3/uL (1.5-6.6); NEUTROPHILS % (AUTO) 56.5 %; PLT - PLATELET COUNT 282 10^3/uL (130-450); WHITE BLOOD COUNT 5.5 x10^3/uL (4.8-10.8)
[2023-08-23 16:41] LABS: CLARITY,URINE CLEAR (CLEAR)
[2023-08-23 16:42] LABS: HCG UR QUAL NEGATIVE
[2023-08-23 16:58] LABS: ALBUMIN 4.9 g/dL (3.2-5.5); ALBUMIN/GLOBULIN RATIO 1.4 (1.0-2.2); BILIRUBIN,TOTAL 0.6 mg/dL (0.2-1.0); CALCIUM 10.2 mg/dL (8.5-10.3); CREATININE 0.9 mg/dL (0.6-1.3); POTASSIUM 3.8 mmol/L (3.5-4.5); TOTAL PROTEIN 8.4 g/dL (6.4-8.9)
[2023-08-23] MEDS ORDERED: HYDROmorphone 1 MG/ML CARPUJECT IM STA (17:50)
[2023-08-23] MEDS ORDERED: PROMETHAZINE 25 MG/1 ML VIAL IM STA (17:50)
[2023-08-23] MEDS ORDERED: diphenhydrAMINE INJ 50 MG/ML VIAL IM STA (18:21)
--- NOTE | 2023-08-23 18:53 | ED Physician Documentation ---
PD HPI NVD - Stated complaint Stated Complaint: WEAKNESS/ABD PX - Chief complaint Chief Complaint: Abd Pain - History obtained from History obtained from: Patient - History of Present Illness Timing - onset: How many days ago (5) Timing - duration: Days (5) Timing - details: Gradual onset, Still present Associated symptoms: Abdominal pain, Other (fatigue) Contributing factors: Other (recent COVID) Improved by: Meds Similar symptoms before: No diagnosis Recently seen: Emergency Dept - Additonal information Additional information: 53-year-old Abbi Dudley has a history of breast cancer she has undergone bilateral mastectomy and treatment in 2019. She has recently acquired COVID about 1 month ago and she recovered from that eventually she required 3 visits to the emergency department with the COVID and she subsequently developed some nausea and vomiting and epigastric abdominal pain and she has had further visits associated with that. She felt that she was doing better improved enough to go back to work she worked for 2 days and was unable to complete working she subsequently developed nausea vomiting and epigastric abdominal pain she is on Suboxone. She has been to the emergency department a number of times and has requested narcotic injection for pain control she has poor IV access and on her past 3 visits IV access was not gained. Review of Systems Constitutional: reports: Myalgias, Fatigue. denies: Fever, Chills Eyes: denies: Decreased vision Ears: denies: Ear pain Nose: denies: Rhinorrhea / runny nose, Congestion Throat: denies: Sore throat Cardiac: denies: Chest pain / pressure, Palpitations Respiratory: denies: Dyspnea, Cough GI: reports: Abdominal Pain, Nausea, Vomiting, Diarrhea : denies: Dysuria, Frequency Skin: denies: Rash Musculoskeletal: reports: Back pain. denies: Neck pain Neurologic: reports: Generalized weakness. 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 MANAGER: Mastectomy, Other - Present Medications Home Medications: Ambulatory Orders Medication Instructions Recorded Confirmed Duloxetine HCl [Cymbalta] 60 mg PO DAILY 11/17/16 08/07/23 Trazodone HCl 50 mg PO QPM 09/26/19 08/07/23 lamoTRIgine [Lamictal] 200 mg PO DAILY 09/26/19 08/07/23 Buprenorphine HCl/Naloxone HCl 1 each SL DAILY 09/10/22 08/07/23 [Suboxone 8 mg-2 mg Sl Film] Dextroamphetamine/Amphetamine 7.5 mg PO DAILY 07/18/23 08/07/23 [Adderall 7.5 mg Tablet] clonazePAM [Clonazepam] 1 mg PO PRN PRN 07/18/23 08/07/23 Ondansetron Odt [Zofran] 4 mg TL Q6H PRN #10 tablet 08/01/23 08/07/23 Famotidine [Pepcid] 20 mg PO BID #30 tablet 08/07/23 Prochlorperazine Supp [Compazine 25 mg SC Q8H PRN #5 supp 08/07/23 Supp] Promethazine [Phenergan] 25 mg PO Q6H PRN #25 tab 08/07/23 - Allergies Allergies/Adverse Reactions: Allergies Allergy/AdvReac Type Severity Reaction Status Date / Time ketorolac tromethamine * Allergy Edema Verified 08/23/23 16:13 [From Toradol] morphine Allergy Itching Verified 08/23/23 16:13 lorazepam [From Ativan] AdvReac Dizziness Verified 08/23/23 16:13 tramadol AdvReac Itching Verified 08/23/23 16:13 - Social History Does the pt smoke?: Yes Smoking Status: Current every day smoker Does the pt drink ETOH?: Yes Does the pt have substance abuse?: No - Immunizations Immunizations are current?: No Immunizations: Other immun not current - POLST Patient has POLST: No POLST Status: Full Code PD ED PE NORMAL - Vitals Vital signs reviewed: Yes (hyperrensive ) - General General: Alert and oriented X 3, No acute distress, Well developed/nourished, Other (dry skinned female appears "miserable") - HEENT HEENT: Atraumatic, PERRL, EOMI - Neck Neck: Supple, no meningeal sign, No bony TTP - Cardiac Cardiac: RRR, No murmur - Respiratory Respiratory: No respiratory distress, Clear bilaterally - Abdomen Abdomen: Soft, Other (minimal epigastric tenderness) - Back Back: No CVA TTP, No spinal TTP - Derm Derm: Normal color, Warm and dry, No rash - Extremities Extremities: No deformity, No edema - Neuro Neuro: Alert and oriented X 3, band singer 2-12 intact, No motor deficit, No sensory deficit, Normal speech Eye Opening: Spontaneous Motor: Obeys Commands Verbal: Oriented GCS Score: 15 Results - Vitals Vitals: Vital Signs - 24 hr 08/23/23 16:13 Temperature 37.1 C Heart Rate 91 Respiratory 18 Rate Blood Pressure 147/95 H O2 Saturation 100 Oxygen O2 Source Room air - Labs Labs: Laboratory Tests 08/23/23 08/23/23 08/23/23 16:25 16:35 16:35 WBC 5.5 RBC 5.10 Hgb 15.4 Hct 45.3 MCV 88.8 MCH 30.2 MCHC 34.0 RDW 13.0 Plt Count 282 MPV 9.0 Neut # (Auto) 3.1 Lymph # (Auto) 1.7 [place] # (Auto) 0.5 Eos # (Auto) 0.1 Baso # (Auto) 0.0 Absolute Nucleated RBC 0.00 Nucleated RBC % 0.0 Sodium 137 Potassium 3.8 Chloride 101 Carbon Dioxide 26 Anion Gap 10.0 BUN 15 Creatinine 0.9 Estimated GFR (MDRD) 66 L Glucose 88 Calcium 10.2 Total Bilirubin 0.6 AST 24 ALT 22 Alkaline Phosphatase 84 Total Protein 8.4 Albumin 4.9 Globulin 3.5 Albumin/Globulin Ratio 1.4 Lipase 18 Urine Color YELLOW Urine Clarity CLEAR Urine pH 6.0 Ur Specific [place] 1.020 Urine Protein NEGATIVE Urine Glucose (UA) NEGATIVE Urine Ketones NEGATIVE Urine Occult Blood NEGATIVE Urine Nitrite NEGATIVE Urine Bilirubin NEGATIVE Urine Urobilinogen 0.2 (NORMAL) Ur Leukocyte Esterase NEGATIVE Ur Microscopic Review NOT INDICATED Urine Culture Comments NOT INDICATED Urine HCG, Qual NEGATIVE Procedures - IVC sono (time) 1730 Bedside IVC sono: IVC measures (cm) (0.81), Dehydration (est 2 liter deficit) PD Medical Decision Making - ED course Complexity details: considered differential, d/w patient Reviewed Lab Results: We reviewed a complete blood count showing a normal white blood cell count normal hemoglobin hematocrit and platelets chemistries showed normal electrolytes normal kidney and liver function a urinalysis is unremarkable with a specific gravity 1.020 and a test is negative. My interpretation of the studies is the underlying process is a benign process. The patient is symptomatic. ED course: 53-year-old female with a prior history of breast cancer and anxiety has developed nausea and vomiting after having COVID. She is on Suboxone and states that she is taking it exactly as prescribed. She does not feel that she has any issue with withdrawal. She is most concerned about severe fatigue and weakness. She has been into the emergency department a number of times and she has poor IV access and she has not received intravenous fluids. She was able to take oral fluids after IM medications and she had days of feeling improved. Today we will not attempt to place multiple IVs she does appear dehydrated on interrogation of the inferior vena cava and she is not mildly dehydrated she is moderately dehydrated she is administered Phenergan, Benadryl and Dilaudid followed by an oral challenge.I have indicated to the patient that we will ask her prescriber of Suboxone for a note to indicate what her limits are for the amount of narcotic we should be able to provide for her Departure - Departure Disposition: 01 Home, Self Care Clinical Impression: Dehydration Nausea & vomiting Qualifiers: Vomiting type: unspecified Qualified Code(s): R11.2 - Nausea with vomiting, unspecified Condition: Stable Instructions: ED Dehydration, ED Diet Vomiting Diarrhea Follow-Up: Sandi Bailey ARNP [Primary Care Provider] - Comments: Abbi today we found you are significantly dehydrated and this is likely a significant cause of your generalized weakness. It is not uncommon to get significant fatigue following COVID and you may have some issues with long COVID. There is no specific treatment for that anything that you are having symptom sanabria should be treated. Today we did not attempt to place an IV as this has been unsuccessful recently and we did find that you are significantly dehydrated when we looked at your inferior vena cava with the bedside ultrasound. We are able to provide medication to reduce resolved your nausea and your pain. My recommendation is to hydrate excessively today. In the future for episodes of pain we will need a note from your prescriber of Suboxone to delineate the limits of your narcotic use in the emergency department. Forms: Activity restrictions
[2023-08-23 19:50] VITALS: BP 137/106
== END 2023-08-23 19:35 | disposition home or self-care (01) ==
LOC: ED 16:04
DX: E86.0 Dehydration (principal); R11.2 Nausea with vomiting, unspecified; F17.200 Nicotine dependence, unspecified, uncomplicated; Z79.899 Other long term (current) drug therapy
CPT/HCPCS: 36415; 80053; 81003; 81025; 83690; 85025; 96372; 99283; 99284; J1170; J1200; 81001; 87086

== ENCOUNTER 2023-11-07 16:52 | Emergency (ER) | payer MEDICARE, MEDICAID ==
[2023-11-07] MEDS ORDERED: BUPRENORPHINE/NALOXONE 8-2 MG TAB SL STA (17:27)
[2023-11-07] MEDS ORDERED: ACETAMINOPHEN 325 MG TABLET PO STA (17:31)
[2023-11-07] MEDS ORDERED: ONDANSETRON ODT 4 MG TABLET TL STA (17:33)
--- NOTE | 2023-11-07 18:19 | CT Report ---
PROCEDURE: HEAD WO INDICATIONS: CARRANZA/LOC/HEAD TRAUMA TECHNIQUE: Noncontrast 4.5 mm thick angled axial sections acquired from the foramen magnum to the vertex. For r adiation dose reduction, the following was used: automated exposure control, adjustment of mA and/or kV according to patient size. COMPARISON: 01/25/2023 FINDINGS: Image quality: Good CSF spaces: Basal cisterns are patent. Lateral ventricles are symmetric. Volume: Minimal volume loss Brain: No intracranial hemorrhage. Hernandez-white differentiation is grossly maintained. Craniofacial structures: Partially seen sinus opacification. IMPRESSION: No acute intracranial abnormality. Partially seen paranasal sinus disease. Reviewed by: Agustin Dill MD on 11/07/2023 6:18 PM PST Approved by: Agustin Dill MD on 11/07/2023 6:18 PM PST Station ID: [id number]
--- NOTE | 2023-11-07 18:28 | ED Physician Documentation ---
PD HPI HEADACHE - Stated complaint Stated Complaint: SYNCOPE/HIT HEAD/CONFUSED - Chief complaint Chief Complaint: Trauma Hd/Nk - History obtained from History obtained from: Patient - Additional information Additional information: 53-year-old female with history of Suboxone use presents by private vehicle for head pain after a syncopal episode just prior to arrival. Patient states that she has felt body aches and malaise for several days. Today she felt stuffed up with nasal congestion and a headache. Patient states that she got up to use the restroom and her vision tunneled and she passed out, landing on the ground. She is reporting headache and the feeling that she is "out of it". She states the last time she felt like this she had COVID-19. Patient also states that she has been out of her Suboxone for the last week and a half because detox was unable to supply it to her, however she states that she has been on Suboxone for 24 years Review of Systems Constitutional: denies: Fever, Chills Nose: reports: Congestion. denies: Rhinorrhea / runny nose, Foreign Body Cardiac: denies: Chest pain / pressure, Palpitations, Calf pain Respiratory: denies: Dyspnea, Cough, Wheezing GI: denies: Abdominal Pain, Nausea, Vomiting Musculoskeletal: denies: Neck pain, Back pain, Extremity pain Neurologic: reports: Syncope, Headache. 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 : Kidney stones HEENT: None Psych: Depression, Anxiety, Other Derm: None - Past Surgical History Past Surgical History: Yes General: Gastric surgery Ortho: Other /CUSHION COVER INSPECTOR: Mastectomy, Other - Present Medications Home Medications: Ambulatory Orders Medication Instructions Recorded Confirmed Duloxetine HCl [Cymbalta] 60 mg PO DAILY 11/17/16 08/07/23 Trazodone HCl 50 mg PO QPM 09/26/19 08/07/23 lamoTRIgine [Lamictal] 200 mg PO DAILY 09/26/19 08/07/23 Buprenorphine HCl/Naloxone HCl 1 each SL DAILY 09/10/22 08/07/23 [Suboxone 8 mg-2 mg Sl Film] Dextroamphetamine/Amphetamine 7.5 mg PO DAILY 07/18/23 08/07/23 [Adderall 7.5 mg Tablet] clonazePAM [Clonazepam] 1 mg PO PRN PRN 07/18/23 08/07/23 Ondansetron Odt [Zofran] 4 mg TL Q6H PRN #10 tablet 08/01/23 08/07/23 Famotidine [Pepcid] 20 mg PO BID #30 tablet 08/07/23 Prochlorperazine Supp [Compazine 25 mg HI Q8H PRN #5 supp 08/07/23 Supp] Promethazine [Phenergan] 25 mg PO Q6H PRN #25 tab 08/07/23 Buprenorphine HCl/Naloxone HCl 1 each SL DAILY #3 film 11/07/23 [Buprenorphine-Nalox 8-2Mg Film] - Allergies Allergies/Adverse Reactions: Allergies Allergy/AdvReac Type Severity Reaction Status Date / Time ketorolac tromethamine * Allergy Edema Verified 11/07/23 16:59 [From Toradol] morphine Allergy Itching Verified 11/07/23 16:59 lorazepam [From Ativan] AdvReac Dizziness Verified 11/07/23 16:59 tramadol AdvReac Itching Verified 11/07/23 16:59 - Social History Does the pt smoke?: Yes Smoking Status: Current every day smoker Does the pt drink ETOH?: Yes Does the pt have substance abuse?: No - Immunizations Immunizations are current?: No Immunizations: Other immun not current - POLST Patient has POLST: No POLST Status: Full Code PD ED PE NORMAL - Vitals Vital signs reviewed: Yes - General General: Alert and oriented X 3, Well developed/nourished, Other (ill appearing, nontoxic) - HEENT HEENT: PERRL, EOMI, Ears normal - Neck Neck: Supple, no meningeal sign, No bony TTP, C-Spine cleared by NEXUS criteria - Cardiac Cardiac: RRR, Strong equal pulses - Respiratory Respiratory: No respiratory distress, Clear bilaterally - Abdomen Abdomen: Soft, Non tender, Non distended Results - Vitals Vitals: Vital Signs - 24 hr 11/07/23 11/07/23 11/07/23 16:59 18:15 19:52 Temperature 36.5 C Heart Rate 110 H 90 93 Respiratory 18 18 18 Rate Blood Pressure 145/100 H 166/104 H 108/67 O2 Saturation 100 99 98 Oxygen O2 Source Room air - Labs Labs: Laboratory Tests 11/07/23 18:04 Nasal Influenza B PCR NOT DETECTED Nasal Influenza A PCR NOT DETECTED Nasal RSV (PCR) NOT DETECTED Nasal SARS-CoV-2 (PCR) NOT DETECTED PD Medical Decision Making - ED course Complexity details: reviewed old records, reviewed results, re-evaluated patient, considered differential, d/w patient ED course: Ill-appearing but nontoxic patient with syncopal episode after getting up to use the restroom. Patient's description of syncopal event is similar to orthostatic episode. Due to patient's reported severe headache and head trauma after syncopal episode will order CT imaging of the brain. Patient is historically a very hard stick and will defer labs at this time. Tylenol ordered for headache. Since patient has been missing her Suboxone dose her typical dose was administered here in the emergency department. CT imaging is negative for acute findings. COVID and flu swabs negative. Some sinus disease is noted on head scan, however patient symptoms are less than 10 days old, no indication for antibiotics at this time. Patient is continuing to complain of headache and requesting medications for pain, record review shows that patient frequently comes to the emergency department requesting narcotics and usually gets IM injections of Dilaudid. There is absolutely no indication for narcotics at this time in the emergency department and I will not administer narcotics, especially since patient is a Suboxone patient. Patient was given a short prescription of Suboxone over the weekend since it is the Nathaniel weekend and clinics will not be open until Friday. She was counseled to follow with her pain management doctor for refill of her normally prescribed Suboxone prescription. Departure - Departure Disposition: Home, Self Care Clinical Impression: Headache, Sinus pressure Condition: Stable Instructions: ED Headache Tension Prescriptions: Buprenorphine HCl/Naloxone HCl [Buprenorphine-Nalox 8-2Mg Film] 1 each SL DAILY #3 film Comments: Your flu and COVID test were negative. Your CT scan was normal. He may have mild sinus disease, I recommend taking Tylenol, Motrin, [id number] decongestions for pain. I sent a prescription for 3 Suboxone films to the [facility] in [place]. This will get you through the weekend until you can call your pain management doctor. Forms: PCP List Discharge Date/Time: 11/07/23 19:52
[2023-11-07 19:41] LABS: INFLUENZA A- RESP PCR PANEL NOT DETECTED; INFLUENZA B - RESP PCR PANEL NOT DETECTED; RSV- RESP PCR PANEL NOT DETECTED; SARS-CoV-2 -RESP PCR PANEL NOT DETECTED
[2023-11-07 19:59] VITALS: BP 108/67; O2SAT 98
== END 2023-11-07 19:52 | disposition home or self-care (01) ==
LOC: ED 16:52
DX: R51.9 Headache, unspecified (principal); J32.9 Chronic sinusitis, unspecified; T88.7XXA Unspecified adverse effect of drug or medicament, initial encounter; T50.996A Underdosing of other drugs, medicaments and biological substances, initial encounter; Z91.138 Patient's unintentional underdosing of medication regimen for other reason
CPT/HCPCS: 70450; 87637; 93005; 99283; 99284; A9270; Q0162; 87275; 87276; 87635

== ENCOUNTER 2023-11-15 13:57 | Emergency (ER) | payer MEDICARE, MEDICAID ==
[2023-11-15 14:06] VITALS: BP 140/90; O2SAT 99
[2023-11-15] MEDS ORDERED: BUPRENORPHINE/NALOXONE 8-2 MG TAB SL STA (17:38)
--- NOTE | 2023-11-15 17:46 | ED Physician Documentation ---
History of Present Illness - Stated complaint Stated Complaint: SHAKING/N/V - Chief complaint Chief Complaint: General - History obtained from History obtained from: Patient - Additonal information Additional information: 53-year-old female who presents requesting a refill of her Suboxone. The patient has been on Suboxone for 24 years, but recent the the place where she was receiving it closed its doors and her PCP is not able to prescribe it for her yet and she is requesting a temporary refill. She was seen here a week or so ago and had a history film prescription which she is now out of. She states she starts to feel a lot of discomfort in her legs and feels shaky and mildly nauseous due to to withdrawal type symptoms from the Suboxone. She understands that we cannot continue to refill this here or give her long-term refills but she has no 1 else able to give her a long-term prescription at this point. She denies any other concerns today, denies fever or chills, no chest pain or d ifficulty breathing, no abdominal pain. 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 : Kidney stones HEENT: None Psych: Depression, Anxiety, Other Derm: None - Past Surgical History Past Surgical History: Yes General: Gastric surgery Ortho: Other /BILLBOARD POSTER: Mastectomy, Other - Present Medications Home Medications: Ambulatory Orders Medication Instructions Recorded Confirmed Duloxetine HCl [Cymbalta] 60 mg PO DAILY 11/17/16 08/07/23 Trazodone HCl 50 mg PO QPM 09/26/19 08/07/23 lamoTRIgine [Lamictal] 200 mg PO DAILY 09/26/19 08/07/23 Buprenorphine HCl/Naloxone HCl 1 each SL DAILY 09/10/22 08/07/23 [Suboxone 8 mg-2 mg Sl Film] Dextroamphetamine/Amphetamine 7.5 mg PO DAILY 07/18/23 08/07/23 [Adderall 7.5 mg Tablet] clonazePAM [Clonazepam] 1 mg PO PRN PRN 07/18/23 08/07/23 Ondansetron Odt [Zofran] 4 mg TL Q6H PRN #10 tablet 08/01/23 08/07/23 Famotidine [Pepcid] 20 mg PO BID #30 tablet 08/07/23 Prochlorperazine Supp [Compazine 25 mg NM Q8H PRN #5 supp 08/07/23 Supp] Promethazine [Phenergan] 25 mg PO Q6H PRN #25 tab 08/07/23 Buprenorphine HCl/Naloxone HCl 1 each SL DAILY #3 film 11/07/23 [Buprenorphine-Nalox 8-2Mg Film] Buprenorphine HCl/Naloxone HCl 1 each SL DAILY #10 film 11/15/23 [Suboxone 8 mg-2 mg Sl Film] - Allergies Allergies/Adverse Reactions: Allergies Allergy/AdvReac Type Severity Reaction Status Date / Time ketorolac tromethamine * Allergy Edema Verified 11/15/23 14:01 [From Toradol] morphine Allergy Itching Verified 11/15/23 14:01 lorazepam [From Ativan] AdvReac Dizziness Verified 11/15/23 14:01 tramadol AdvReac Itching Verified 11/15/23 14:01 - Social History Does the pt smoke?: Yes Smoking Status: Current every day smoker Does the pt drink ETOH?: Yes Does the pt have substance abuse?: No - Immunizations Immunizations are current?: No Immunizations: Other immun not current - POLST Patient has POLST: No POLST Status: Full Code PD ED PE NORMAL - Vitals Vital signs reviewed: Yes - General General: Alert and oriented X 3, No acute distress, Well developed/nourished - HEENT HEENT: Atraumatic, Moist mucous membranes - Cardiac Cardiac: RRR, No murmur, No gallop, No rub - Derm Derm: Normal color, Warm and dry, No rash - Neuro Neuro: Alert and oriented X 3 Eye Opening: Spontaneous Motor: Obeys Commands Verbal: Oriented GCS Score: 15 Results - Vitals Vitals: Vital Signs - 24 hr 11/15/23 14:01 Temperature 36.5 C Heart Rate 80 Respiratory 16 Rate Blood Pressure 140/90 H O2 Saturation 99 Oxygen O2 Source Room air PD Medical Decision Making - ED course Complexity details: reviewed old records, d/w patient ED course: 53-year-old female presented requesting refill of her Suboxone. She is experiencing some withdrawal symptoms due to being off the Suboxone which she has used for over 20 years reportedly. Reviewed some of her prior records and they do indicate that the patient has been on it, she received it dose here last week and a short term prescription but unfortunately patient has not been able to find a provider that will take over her long-term prescription. She does have a PCP and she is working with her to find a place to get this filled. In the meantime, will give a 10-day Prescription. The patient was subsequently discharged home in stable condition. Departure - Departure Disposition: Home, Self Care Clinical Impression: Chronic pain Qualifiers: Chronic pain type: chronic pain syndrome Qualified Code(s): G89.4 - Chronic pain syndrome Condition: Good Instructions: Buprenorphine Naloxone oral dissolving film Prescriptions: Buprenorphine HCl/Naloxone HCl [Suboxone 8 mg-2 mg Sl Film] 1 each SL DAILY #10 film Comments: Please continue working with your primary care provider regarding resuming your Suboxone for chronic pain management.We cannot continue to refill this medication in the ER but I have given you a short-term refill today.All further refills should be obtained from primary care or pain management. I cannot give you any additional clonazepam as you received a 30 tablet prescription for this on 10/28. Forms: PCP List
== END 2023-11-15 18:15 | disposition home or self-care (01) ==
LOC: ED 13:57
DX: Z76.0 Encounter for issue of repeat prescription (principal); G89.4 Chronic pain syndrome; I10 Essential (primary) hypertension; F17.200 Nicotine dependence, unspecified, uncomplicated; Z79.891 Long term (current) use of opiate analgesic
CPT/HCPCS: 99282; 99283

== ENCOUNTER 2023-11-29 07:41 | Emergency (ER) | payer MEDICAID, MEDICARE, OTHER ==
[2023-11-29 07:57] VITALS: O2SAT 98
[2023-11-29] MEDS ORDERED: TETANUS/DIPHTHERIA/PERTUSSIS 0.5 ML SYRINGE IM ONE (08:01)
--- NOTE | 2023-11-29 08:03 | ED Physician Documentation ---
History of Present Illness - Stated complaint Stated Complaint: NAUSEA/VOMITING - Chief complaint Chief Complaint: Abd Pain - History obtained from History obtained from: Patient - Additonal information Additional information: 53-year-old female with history of long-term Suboxone use presents requesting a refill of her Suboxone as well as for evaluation of right hand pain and swelling. 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 She does not remember when her last tetanus shot was administered. Patient just got new insurance and has a primary care appointment next week for further refills of her Suboxone. Review of Systems Constitutional: denies: Fever, Chills GI: reports: Nausea. denies: Abdominal Pain, Vomiting Skin: reports: Rash, Abrasion (s). denies: Lesions, Laceration (s) Musculoskeletal: reports: Extremity pain. 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5 mg PO DAILY 07/18/23 08/07/23 [Adderall 7.5 mg Tablet] clonazePAM [Clonazepam] 1 mg PO PRN PRN 07/18/23 08/07/23 Ondansetron Odt [Zofran] 4 mg TL Q6H PRN #10 tablet 08/01/23 08/07/23 Famotidine [Pepcid] 20 mg PO BID #30 tablet 08/07/23 Prochlorperazine Supp [Compazine 25 mg NE Q8H PRN #5 supp 08/07/23 Supp] Promethazine [Phenergan] 25 mg PO Q6H PRN #25 tab 08/07/23 Buprenorphine HCl/Naloxone HCl 1 each SL DAILY #3 film 11/07/23 [Buprenorphine-Nalox 8-2Mg Film] Buprenorphine HCl/Naloxone HCl 1 each SL DAILY #10 film 11/15/23 [Suboxone 8 mg-2 mg Sl Film] Buprenorphine HCl/Naloxone HCl 1 each SL DAILY #10 film 11/29/23 [Suboxone 8 mg-2 mg Sl Film] Doxycycline Hyclate 100 mg PO BID #20 tab 11/29/23 - Allergies Allergies/Adverse Reactions: Allergies Allergy/AdvReac Type Severity Reaction Status Date / Time ketorolac tromethamine * Allergy Edema Verified 11/29/23 07:55 [From Toradol] morphine Allergy Itching Verified 11/29/23 07:55 lorazepam [From Ativan] AdvReac Dizziness Verified 11/29/23 07:55 tramadol AdvReac Itching Verified 11/29/23 07:55 - Social History Does the pt smoke?: Yes Smoking Status: Current every day smoker Does the pt drink ETOH?: Yes Does the pt have substance abuse?: No - Immunizations Immunizations are current?: No Immunizations: Other immun not current - POLST Patient has POLST: No POLST Status: Full Code PD ED PE NORMAL - Vitals Vital signs reviewed: Yes - General General: Alert and oriented X 3, No acute distress, Well developed/nourished - Cardiac Cardiac: RRR, Strong equal pulses - Respiratory Respiratory: No respiratory distress, Clear bilaterally - Abdomen Abdomen: Soft, Non tender - Derm Derm: Warm and dry, Other (healing abrasions over knuckles of R hand. 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 Since patient has exposure to sea water will cover with doxycycline. Tetanus shot updated. Short refill of Suboxone sent to pharmacy of choice. Departure - Departure Disposition: 01 Home, Self Care Clinical Impression: Medication refill Cellulitis Qualifiers: Site of cellulitis: extremity Site of cellulitis of extremity: upper extremity Laterality: right Qualified Code(s): L03.113 - Cellulitis of right upper limb Condition: Stable Instructions: Cellulitis Dc Prescriptions: Doxycycline Hyclate 100 mg PO BID #20 tab Buprenorphine HCl/Naloxone HCl [Suboxone 8 mg-2 mg Sl Film] 1 each SL DAILY #10 film Forms: PCP List
[2023-11-29 08:15] VITALS: BP 128/85
--- NOTE | 2023-12-02 08:40 | ED Physician Documentation ---
ED Addendum - Addendum Addendum: 12/02/23 08:39 Chart accessed by me due to medication review. I received phone call from [facility] pharmacy; patient's insurance will only cover the prescribed doxycycline in capsule form and not tablet form as written. I authorized changing the prescription to doxycycline 100 mg capsules p.o. twice daily #20 capsules
== END 2023-11-29 08:18 | disposition home or self-care (01) ==
LOC: ED 07:41
DX: L03.113 Cellulitis of right upper limb (principal); S60.511D Abrasion of right hand, subsequent encounter; W31.82XD Contact with other commercial machinery, subsequent encounter; Z76.0 Encounter for issue of repeat prescription; F17.200 Nicotine dependence, unspecified, uncomplicated
CPT/HCPCS: 90471; 99283

== ENCOUNTER 2023-12-07 13:33 | Emergency (ER) | payer OTHER, MEDICAID ==
--- NOTE | 2023-12-07 14:55 | ED Physician Documentation ---
PD HPI Fall - Stated complaint Stated Complaint: GLF,UPPER BACK INJ - Chief complaint Chief Complaint: Trauma Ch/Bk - History obtained from History obtained from: Patient - History of Present Illness Mechanism of injury: Slipped Fall distance: Standing position (getting out of work van and there was slippery spot (icy weather) causing her to twist and lurch backward. Did nott fall per se, but had abrupt onset of pain in thoracic back and lower neck. Pain ith ROM. No radiating pain, nor extremity weakness/numbness.) Where injury occurred: Work Timing - onset: Today (this morning about 5 hours ago, and tried to do her work but pain was too consistent and intense with ROM.) Injury(ies) location: Neck, Back (upper to mid thoracic area.) Quality of pain: Aching, Sharp Associated symptoms: No: LOC, Weakness, Paresthesias Worsens with: Movement Recently seen: Not recently seen Review of Systems Constitutional: denies: Fever, Chills Nose: denies: Rhinorrhea / runny nose, Congestion Throat: denies: Sore throat Cardiac: denies: Chest pain / pressure Respiratory: denies: Cough GI: denies: Abdominal Pain Skin: denies: Abrasion (s), Laceration (s) Neurologic: denies: Focal weakness, Numbness PD PAST MEDICAL HISTORY - Past Medical History Past Medical History: Yes Cardiovascular: Hypertension, Pulmonary embolism Respiratory: None Neuro: Headaches, Migraines Endocrine/Autoimmune: None GI: Hepatitis, Diverticulitis 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 : Kidney stones HEENT: None Psych: Depression, Anxiety, Other Derm: None - Past Surgical History Past Surgical History: Yes General: Gastric surgery Ortho: Other /SPOON MAKER: Mastectomy, Other - Present Medications Home Medications: Ambulatory Orders Medication Instructions Recorded Confirmed Duloxetine HCl [Cymbalta] 60 mg PO DAILY 11/17/16 12/07/23 Trazodone HCl 50 mg PO QPM 09/26/19 12/07/23 lamoTRIgine [Lamictal] 200 mg PO DAILY 09/26/19 12/07/23 Dextroamphetamine/Amphetamine 7.5 mg PO DAILY 07/18/23 12/07/23 [Adderall 7.5 mg Tablet] clonazePAM [Clonazepam] 1 mg PO PRN PRN 07/18/23 12/07/23 Buprenorphine HCl/Naloxone HCl 1 each SL DAILY #10 film 11/29/23 12/07/23 [Suboxone 8 mg-2 mg Sl Film] Meloxicam [Mobic] 7.5 mg PO BID 10 Days #20 tablet 12/07/23 lisinopriL [Lisinopril] 10 mg PO DAILY 12/07/23 12/07/23 tiZANidine [Zanaflex] 4 mg PO Q8H PRN #25 tablet 12/07/23 - Allergies Allergies/Adverse Reactions: Allergies Allergy/AdvReac Type Severity Reaction Status Date / Time ketorolac tromethamine * Allergy Edema Verified 12/07/23 15:12 [From Toradol] morphine Allergy Itching Verified 12/07/23 15:12 lorazepam [From Ativan] AdvReac Dizziness Verified 12/07/23 15:12 tramadol AdvReac Itching Verified 12/07/23 15:12 - Social History Does the pt smoke?: Yes Smoking Status: Current every day smoker Does the pt drink ETOH?: Yes Does the pt have substance abuse?: No - Immunizations Immunizations are current?: No Immunizations: Other immun not current - POLST Patient has POLST: No POLST Status: Full Code PD ED PE NORMAL - Vitals Vital signs reviewed: Yes - General General: Alert and oriented X 3, Well developed/nourished, Other (appears uncomfortable with guarded ROM of upper back and lower neck. ) - Neck Neck: Supple, no meningeal sign, No adenopathy, Other (tender at lower cervical to upper thoracic spine area left of midline. no deformity noted. Also tender mid thoracic area midline and to sides. ) - Derm Derm: Normal color, Warm and dry - Neuro Neuro: Alert and oriented X 3, No motor deficit, No sensory deficit, Normal speech Results - Vitals Vitals: Oxygen O2 Source Room air - Rads (name of study) cervical and thoracic spine CT Relevant Findings:: Prelim report reviewed (degenerative changes without noted fractures. ), EMP independent interpretation of test PD Medical Decision Making - ED course Complexity details: reviewed results (no fractures nor acute injury to structure. ), re-evaluated patient (improved with some meds here PO nonnarcotic. She takes Suboxone for pain so would not get any pain improvement from short acting opioids. ), considered differential (did not have impact/forceful fall, but was quick forceful twisting and hyperextension of uper back, with abrupt pain. Consider disc injury or compression injury. CT done to evaluate. No neuro symptoms. ), d/w patient Departure - Departure Disposition: 01 Home, Self Care Clinical Impression: Strain of thoracic back region Condition: Stable Record reviewed to determine appropriate education?: Yes Follow-Up: Sandi Bailey ARNP [Primary Care Provider] - Prescriptions: Meloxicam [Mobic] 7.5 mg PO BID 10 Days #20 tablet tiZANidine [Zanaflex] 4 mg PO Q8H PRN #25 tablet PRN Reason: Spasms Comments: Your scan pictures of the neck and upper back do not show any acute fractures or misalignment. There are some mild arthritic changes noted. It sounds likely you strained and pulled some of the muscles and ligaments in your back. Heat and stretching for the back can help with this. Anti-inflammatory such as meloxicam twice daily for the next 7 to 10 days may be helpful. Add Tylenol 500 to 650 mg every 4-6 hours if needed for pain. You could also use tizanidine muscle relaxant to help with spasms and stiffness. Continue with your as usual medications. I sent your prescriptions to your preferred pharmacy. You have stated you prefer to continue with working. I did provide a note saying you are here today and consideration of light duty for couple of days. Forms: PCP List, Activity restrictions Discharge Date/Time: 12/07/23 17:33
[2023-12-07] MEDS ORDERED: IBUPROFEN 800 MG TABLET PO STA (15:10)
[2023-12-07] MEDS ORDERED: CYCLOBENZAPRINE 10 MG TABLET PO STA (15:11)
[2023-12-07] MEDS ORDERED: ACETAMINOPHEN 500 MG TABLET PO STA (15:11)
--- NOTE | 2023-12-07 16:48 | CT Report ---
PROCEDURE: Cervical Spine WO INDICATIONS: twisting injury; neck/upper back pain TECHNIQUE: Noncontrast 3 mm thick sections acquired from the skull base to the T4 level. Sagittal and coronal r eformats were then constructed. For radiation dose reduction, the following was used: automated exp osure control, adjustment of mA and/or kV according to patient size. COMPARISON: None. FINDINGS: Image quality: Excellent. Bones: No fractures or dislocations. Visualized superior ribs are intact. Soft tissues: Prevertebral soft tissues are normal in thickness. No paravertebral hematomas. No ap ical pneumothoraces. IMPRESSION: No visualized fracture. Reviewed by: Brina Sauceda MD on 12/07/2023 4:47 PM PST Approved by: Brina Sauceda MD on 12/07/2023 4:47 PM [facility] Station ID: [id number]
--- NOTE | 2023-12-07 16:50 | CT Report ---
PROCEDURE: Thoracic Spine WO INDICATIONS: twisting injury, back/neck pain TECHNIQUE: Noncontrast 3 mm thick sections acquired through the region of interest in the thoracic spine. Sagit constanza and coronal reformats were then constructed. For radiation dose reduction, the following was used : automated exposure control, adjustment of mA and/or kV according to patient size. COMPARISON: CT cervical spine 12/07/2023 FINDINGS: Image quality: Excellent. Bones: There is normal overall bony alignment. No acute vertebral body compression fractures. No s uspicious sclerotic or lytic bony lesions. Central spinal canal is of normal overall caliber. Multi level degenerative disc space narrowing as well as reactive endplate changes. Soft tissues: No paravertebral masses or hematomas. Visualized posteromedial lungs appear clear. IMPRESSION: Degenerative changes without visualized fracture. Reviewed by: Brina Sauceda MD on 12/07/2023 4:48 PM PST Approved by: Brina Sauceda MD on 12/07/2023 4:48 PM PST Station ID: [id number]
[2023-12-07 17:38] VITALS: BP 148/78; O2SAT 98
== END 2023-12-07 17:33 | disposition home or self-care (01) ==
LOC: ED 13:33
DX: S29.012A Strain of muscle and tendon of back wall of thorax, initial encounter (principal); W18.49XA Other slipping, tripping and stumbling without falling, initial encounter; Y92.89 Other specified places as the place of occurrence of the external cause; Y99.0 Civilian activity done for income or pay; I10 Essential (primary) hypertension; F17.200 Nicotine dependence, unspecified, uncomplicated; Z79.899 Other long term (current) drug therapy
CPT/HCPCS: 1040M; 72125; 72128; 99284; A9270

== ENCOUNTER 2024-01-09 14:48 | Emergency (ER) | payer MEDICAID, MEDICARE, OTHER ==
[2024-01-09 15:08] VITALS: BP 137/88; O2SAT 100
[2024-01-09] MEDS: DROPERIDOL 5 MG/2 ML VIAL IM STA (17:37)
--- NOTE | 2024-01-09 17:37 | ED Physician Documentation ---
History of Present Illness - Stated complaint Stated Complaint: UPPER BACK PX - Chief complaint Chief Complaint: Back Pain - Additonal information Additional information: 53-year-old female presents emergency department for upper back pain. She had a ground-level fall end of November she had a CT scan and full workup done at that time and was not found to have any acute fractures or findings. Since then she said that she is been having a hard time dealing with her pain at home. She said no urinary incontinence no stool incontinence she is able to ambulate without any difficulty no weakness. Patient says that she is followed up with her primary care provider multiple times and unfortunately she said that she is having hard time with her primary care provider because she is gone to physical therapy and according to the patient she has failed and to her primary care provider will not order an MRI. Patient is here for seeking MRI here or to the emergency department. She is also asking for Dilaudid shot But reports it has to be a large amount because she is currently on Suboxone. 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: Breast cancer : Kidney stones HEENT: None Psych: Depression, Anxiety, Other Derm: None - Past Surgical History Past Surgical History: Yes General: Gastric surgery Ortho: Other /PEDAL ASSEMBLER: Mastectomy, Other - Present Medications Home Medications: Ambulatory Orders Medication Instructions Recorded Confirmed Duloxetine HCl [Cymbalta] 60 mg PO DAILY 11/17/16 12/07/23 Trazodone HCl 50 mg PO QPM 09/26/19 12/07/23 lamoTRIgine [Lamictal] 200 mg PO DAILY 09/26/19 12/07/23 Dextroamphetamine/Amphetamine 7.5 mg PO DAILY 07/18/23 12/07/23 [Adderall 7.5 mg Tablet] clonazePAM [Clonazepam] 1 mg PO PRN PRN 07/18/23 12/07/23 Buprenorphine HCl/Naloxone HCl 1 each SL DAILY #10 film 11/29/23 12/07/23 [Suboxone 8 mg-2 mg Sl Film] Meloxicam [Mobic] 7.5 mg PO BID 10 Days #20 tablet 12/07/23 lisinopriL [Lisinopril] 10 mg PO DAILY 12/07/23 12/07/23 tiZANidine [Zanaflex] 4 mg PO Q8H PRN #25 tablet 12/07/23 - Allergies Allergies/Adverse Reactions: Allergies Allergy/AdvReac Type Severity Reaction Status Date / Time ketorolac tromethamine * Allergy Edema Verified 01/09/24 15:03 [From Toradol] morphine Allergy Itching Verified 01/09/24 15:03 lorazepam [From Ativan] AdvReac Dizziness Verified 01/09/24 15:03 tramadol AdvReac Itching Verified 01/09/24 15:03 - Social History Does the pt smoke?: Yes Smoking Status: Current every day smoker Does the pt drink ETOH?: Yes Does the pt have substance abuse?: No - Immunizations Immunizations are current?: No Immunizations: Other immun not current - POLST Patient has POLST: No POLST Status: Full Code PD ED PE NORMAL - Vitals Vital signs reviewed: Yes - General General: Alert and oriented X 3, No acute distress, Well developed/nourished - HEENT HEENT: Atraumatic, PERRL, EOMI - Neck Neck: Supple, no meningeal sign, No bony TTP - Cardiac Cardiac: RRR, No murmur, No gallop, Strong equal pulses - Respiratory Respiratory: No respiratory distress, Clear bilaterally - Female Female : [employer] 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 Curvature of the cervical, thoracic, and lumbar spine are within normal limits. Bony features of the shoulders and hips are of equal height bilaterally. Posture is upright, gait is smooth, steady, and within normal limits. No tenderness noted on palpation of the spinous processes. Spinous processes are midline. Cervical, thoracic, and lumbar paraspinal muscles are tender but are without spasm. Straight leg raise test is negative bilaterally. Sensation to the upper and lower extremities is normal bilaterally. No clonus is noted. Fixed Capital Clerk strength is normal bilaterally. Dorsi/plantar flexion is normal bilaterally. Results - Vitals Vitals: Vital Signs - 24 hr 01/09/24 14:59 Temperature 36.7 C Heart Rate 95 Respiratory 18 Rate Blood Pressure 137/88 H O2 Saturation 100 Oxygen O2 Source Room air PD Medical Decision Making - ED course ED course: 53-year-old female presents emergency department forChronic upper back pain. Patient was offered Toradol shot but she said she is allergic to this. She was also offered a muscle relaxer but she said that she has been given this in the past and it has not worked to alleviate her back pain. Unfortunately patient does not meet criteria for an emergent MRI in the emergency department I have low suspicion for spinal epidural abscess she has had no fevers or chills she has no pinpoint specific spinal tenderness. Patient says that she really needs opioids and that she needs a stronger dose because she is on Suboxone. She was agreeable to try a dose of droperidol for her back pain to see if it would help but unfortunately she was not willing to stay in the emergency department eye anymore to see if this was helpful or not. "Patient says you gave the sisi next to me drugs want you give me drugs, Why cannot you give any to me?" Patient left prior to formal discharge I decided to go ahead and still send a referral to orthopedic surgery for further evaluation of this I informed her if she is having a hard time with her primary care provider to attempt to reach out to other primary care providers that she might get along with better and [place]. I was not able to give the patient return precautions that she has left prior to formal discharge Departure - Departure Disposition: Left Prior to Disposition Clinical Impression: Back pain Qualifiers: Back pain location: thoracic back pain Chronicity: chronic Back pain laterality: bilateral Qualified Code(s): M54.6 - Pain in thoracic spine Instructions: ED Chronic Pain Management Follow-Up: Jay Miles MD [Provider Admit Priv/Credential] - Discharge Date/Time: 01/09/24 17:47
== END 2024-01-09 17:47 | disposition home or self-care (01) ==
LOC: ED 14:48
DX: M54.6 Pain in thoracic spine (principal); G89.29 Other chronic pain; F17.200 Nicotine dependence, unspecified, uncomplicated
CPT/HCPCS: 96372; 99283; 99284